=== PATIENT | female | born 1940 | race African-American/Black ===

== ENCOUNTER 2018-12-13 16:46 | Inpatient (IN) | payer BC, MEDICARE ==
[2018-12-13] VITALS (7 sets, daily range): BP systolic 152–207; BP diastolic 73–103
[~2018-12-13] VITALS: Ht 172.7 cm; Wt 70.3 kg
[2018-12-13] MEDS ORDERED: LORazepam Inj 2mg/ml 1ml IV ONE (17:15)
--- NOTE | 2018-12-13 18:28 | Emergency Room Report ---
History of Present Illness General Chief Complaint: Shoulder Injury Source: Medical Record, EMS Present Illness HPI Patient is a 77-year-old female presents after increased deformity to her left shoulder. Patient had x-ray at her retirement which showed anterior inferior dislocation of the left shoulder. There is no evident fracture noted. Patient had been noted to be ventilator dependent. 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 Injury occurred last night. Patient had not been vomiting or having any fever. Patient had no known time of injury. Patient had x-ray this morning which showed the dislocation. Patient was sent in for further evaluation and treatment. Allergies: Coded Allergies: NILAY INHIBITORS (Verified Allergy, Unknown, 12/13/18) AMLODIPINE (Verified Allergy, Unknown, 12/13/18) PENICILLINS (Verified Allergy, Unknown, 12/13/18) Uncoded Allergies: HYDROCHLORTHIAZIDE (Allergy, Unknown, 12/13/18) Patient History Past Medical History: see triage record Past Surgical History: other - gtube Reviewed Nursing Documentation: PMH: Agreed; PSxH: Agreed Nursing Documentation-PMH Hx Cardiac Problems: Yes - A-fib, hyperlipidemia, edema, anemia Hx Asthma: Yes - PNA, Hx COPD: Yes - Tracheostomy Hx Diabetes: Yes Hx Gastrointestinal Problems: Yes - GERD, G-tube, Hx Neurological Problems: Yes - SIADH, ICH Review of Systems All Other Systems: limited Physical Exam Vital Signs Date Time Temp Pulse Resp B/P (MAP) Pulse Ox O2 Delivery O2 Flow Rate FiO2 12/13/18 15:00 66 18 35 12/13/18 16:47 98.1 148/67 (94) 99 Mechanical Ventilator Sp02 EP Interpretation: reviewed, normal General Appearance: Chronically Ill Head: atraumatic Eyes: bilateral eye EOMI ENT: normal voice Neck: no bony tend, tracheotomy Respiratory: normal inspection, lungs clear, normal breath sounds, no respiratory distress, no retraction, no wheezing Cardiovascular #1: regular rate, rhythm, no edema Gastrointestinal: normal inspection, normal bowel sounds, non tender, soft Musculoskeletal: normal inspection, decreased range of motion, other - motor weakness Neurologic: responsive, motor weakness Psychiatric: mood/affect normal Skin: no rash, normal inspection Lymphatic: normal inspection Procedures Procedural Sedation Consent: Written Time out called at: 18:51 Pre-Sedation Assessment: Plan for Sedation Discuss Airway Assessment (Malampati): I Heart: normal Lungs: normal Abdomen: normal Extremities: abnormal - dislocation Procedures/Plans: Closed Reduction Plan for Moderate Sedation: Other ASA Score: III Procedure Narrative Patient was given Versed 2 mg as well as IV rocuronium. Patient attempted to reduce the left shoulder using multiple techniques without any success. Patient was maintained on ventilator at a rate of 16 during the time of attempt. Patient tolerated this well. Sedation well but post procedure x-ray showed continued dislocation. Start Time: 18:52 End Time: 19:02 Communication: back to baseline Mental Status: Cognitive Respiration: ventilator Skin Condition: WNL Abdomen: WNL Medical Decision Making Diagnostic Impression: Primary Impression: Shoulder dislocation Additional Impression: Ventilator dependence ER Course Presented for possible shoulder dislocation. Differential diagnosis include was not limited to fracture, dislocation, contusion, chronic dislocation among others. Because of complexity of patient's case laboratory tests and imaging studies were ordered. Patient was noted to have chronic neuromuscular weakness. Patient was noted to be hypertensive. She was given clonidine. Patient was given medications including Ativan and Versed with associated paralytic agent. Patient tolerated this well however I was unable to reproduce her shoulder. Patient was maintained on ventilator during the entire time. She was noted to have no change in blood pressure. Patient tolerated procedure well however post procedure x-ray can showed continued left shoulder dislocation. Dr. Duncan Louis was contacted for inpatient management. Labs Test 12/13/18 19:15 White Blood Count 4.2 K/UL (4.8-10.8) Red Blood Count 4.30 M/UL (4.20-5.40) Hemoglobin 11.6 G/DL (12.0-16.0) Hematocrit 37.3 % (37.0-47.0) Mean Corpuscular Volume 87 FL (80-99) Mean Corpuscular Hemoglobin 27.0 PG (27.0-31.0) Mean Corpuscular Hemoglobin Concent 31.1 G/DL (32.0-36.0) Red Cell Distribution Width 19.2 % (11.6-14.8) Platelet Count 214 K/UL (150-450) Mean Platelet Volume 7.3 FL (6.5-10.1) Neutrophils (%) (Auto) 64.0 % (45.0-75.0) Lymphocytes (%) (Auto) 18.6 % (20.0-45.0) Monocytes (%) (Auto) 12.7 % (1.0-10.0) Eosinophils (%) (Auto) 2.1 % (0.0-3.0) Basophils (%) (Auto) 2.7 % (0.0-2.0) Prothrombin Time 10.9 SEC (9.30-11.50) Prothromb Time International Ratio 1.0 (0.9-1.1) Activated Partial Thromboplast Time 23 SEC (23-33) Sodium Level 132 MMOL/L (136-145) Potassium Level 5.3 MMOL/L (3.5-5.1) Chloride Level 96 MMOL/L (98-107) Carbon Dioxide Level 32 MMOL/L (21-32) Anion Gap 4 mmol/L (5-15) Blood Urea Nitrogen 21 mg/dL (7-18) Creatinine 0.5 MG/DL (0.55-1.30) Estimat Glomerular Filtration Rate mL/min (>60) Glucose Level 99 MG/DL (74-106) Calcium Level 10.0 MG/DL (8.5-10.1) Total Bilirubin 0.4 MG/DL (0.2-1.0) Aspartate Amino Transf (AST/SGOT) 58 U/L (15-37) Alanine Aminotransferase (ALT/SGPT) 44 U/L (12-78) Alkaline Phosphatase 122 U/L (46-116) Total Protein 7.9 G/DL (6.4-8.2) Albumin 2.6 G/DL (3.4-5.0) Globulin 5.3 g/dL Albumin/Globulin Ratio 0.5 (1.0-2.7) EKG Diagnostic Results Rate: normal Rhythm: NSR ST Segments: no acute changes Last Vital Signs Date Time Temp Pulse Resp B/P (MAP) Pulse Ox O2 Delivery O2 Flow Rate FiO2 12/13/18 17:07 61 18 100 Mechanical Ventilator 35 12/13/18 16:57 98.1 152/75 Status: unchanged Disposition: ADMITTED INPATIENT Condition: Serious Referrals: NON PHYSICIAN (PCP) Orestes Henderson MD Dec 13, 2018 18:28
[2018-12-13] MEDS ORDERED: Midazolam 2mg/2ml Inj IVP ONE (18:30)
[2018-12-13] MEDS ORDERED: Rocuronium Bromide 50mg/5ml Inj IV ONE (18:30)
[2018-12-13 19:47] LABS: BASOPHILS % (AUTO) 2.7 % (0.0-2.0); EOSINOPHILS % (AUTO) 2.1 % (0.0-3.0); HEMATOCRIT 37.3 % (37.0-47.0); HEMOGLOBIN 11.6 G/DL (12.0-16.0); LYMPHOCYTES % (AUTO) 18.6 % (20.0-45.0); MEAN CORPUSCULAR VOLUME 87 FL (80-99); MONOCYTES % (AUTO) 12.7 % (1.0-10.0); PLATELET COUNT 214 K/UL (150-450); RED CELL DISTRIBUTION WIDTH 19.2 % (11.6-14.8); WHITE BLOOD COUNT 4.2 K/UL (4.8-10.8)
[2018-12-13 20:03] LABS: ANION GAP 4 mmol/L (5-15); BLOOD UREA NITROGEN 21 mg/dL (7-18); CARBON DIOXIDE 32 MMOL/L (21-32); CHLORIDE 96 MMOL/L (98-107); CREATININE 0.5 MG/DL (0.55-1.30); POTASSIUM 5.3 MMOL/L (3.5-5.1); SODIUM 132 MMOL/L (136-145)
[2018-12-13 20:08] LABS: ALANINE AMINOTRANSFERASE 44 U/L (12-78); ALBUMIN 2.6 G/DL (3.4-5.0); ALBUMIN/GLOBULIN RATIO 0.5 (1.0-2.7); ALKALINE PHOSPHATASE 122 U/L (46-116); ASPARTATE AMINO TRANSFERASE 58 U/L (15-37); BILIRUBIN,TOTAL 0.4 MG/DL (0.2-1.0)
[2018-12-13] MEDS ORDERED: cloNIDine 0.2mg Tab ORAL ONE (21:45)
[2018-12-13] MEDS ORDERED: ACETAMINOPHEN325 M1 GT (21:58)
[2018-12-13] MEDS ORDERED: BISACODYL5 MG ORAL (21:58)
[2018-12-13] MEDS ORDERED: ALBUTEROL2.5 MG/3 M INH (21:58)
[2018-12-13] MEDS ORDERED: ASPIRIN81 MG GT (21:58)
[2018-12-13] MEDS ORDERED: ATORVASTATIN CA20 MG GT (21:58)
[2018-12-13] MEDS ORDERED: VITAMIN D250000 UNI1 GT (22:01)
[2018-12-13] MEDS ORDERED: FERROUS SU220 MG/53 PO (22:01)
[2018-12-13] MEDS ORDERED: EPOGEN10000 UNIT SUBQ (22:01)
[2018-12-13] MEDS ORDERED: DECLOMYCIN150 MG GT (22:01)
[2018-12-13] MEDS ORDERED: DOCUSATE SODIU100 MG GT (22:01)
[2018-12-13] MEDS ORDERED: CATAPRES0.1 MG ORAL (22:01)
[2018-12-13] MEDS ORDERED: FERROUS SULFAT325 MG ORAL (22:01)
[2018-12-13] MEDS ORDERED: HEPARIN SUBQ (22:06)
[2018-12-13] MEDS ORDERED: HUMULIN R100 UNIT/1 SUBQ (22:06)
[2018-12-13] MEDS ORDERED: MAGNESIUM400 M1 PO (22:06)
[2018-12-13] MEDS ORDERED: NORMODYNE100 MG GT (22:06)
[2018-12-13] MEDS ORDERED: LEVOTHYROXINE100 MC1 IV (22:06)
[2018-12-13] MEDS ORDERED: MELATONIN1 MG GT (22:06)
[2018-12-13] MEDS ORDERED: HYDRALAZINE HCL50 MG GT (22:06)
[2018-12-13] MEDS ORDERED: DUONEB 0.5-3(2.53 ML HHN (22:06)
[2018-12-13] MEDS ORDERED: MIRALAX17 G2 GT (22:06)
[2018-12-13] MEDS ORDERED: MILK OF MA2400 MG/10 GT (22:06)
[2018-12-13] MEDS ORDERED: COZAAR50 MG GT (22:06)
[2018-12-13] MEDS ORDERED: ZOFRAN4 M3 GT (22:08)
[2018-12-13] MEDS ORDERED: VITAMIN C500 M1 GT (22:08)
[2018-12-14 01:30] VITALS: BP 148/65
[2018-12-14 04:00] VITALS: BP 144/69
[2018-12-14] MEDS ORDERED: Albuterol ud Inhalation HHN PRN (07:00)
[2018-12-14 08:00] VITALS: BP 150/61
[2018-12-14] MEDS: Losartan 50mg tab ORAL SCH ×2 (09:27→17:44)
[2018-12-14] MEDS: Ascorbic Acid 500mg tab ORAL SCH (09:27)
[2018-12-14] MEDS: Miralax 17gm pkt ORAL SCH (09:27)
[2018-12-14] MEDS: Docusate 100mg cap ORAL SCH ×2 (09:27→14:21)
[2018-12-14] MEDS: Aspirin Baby 81mg ORAL SCH (09:27)
[2018-12-14] MEDS: Bisacodyl EC 5mg tab ORAL SCH (09:27)
[2018-12-14] MEDS: Milk of Magnesia 30ml Ud ORAL SCH (09:28)
[2018-12-14] MEDS: Heparin 5000 units/ml inj SUBQ SCH ×2 (09:31→20:40)
--- NOTE | 2018-12-14 10:51 | Diagnostic Imaging Report ---
Indication: left shoulder pain Findings: 3 views of the left shoulder were obtained. Anterior glenohumeral joint dislocation demonstrated. No obvious fracture identified on the views obtained. The bones appear osteopenic. There is a tracheostomy noted. Aorta is calcified. IMPRESSION: Anterior glenohumeral joint dislocation
[2018-12-14] MEDS: NovoLOG Insulin Flexpen SUBQ SCH ×3 (11:30→20:38)
[2018-12-14 12:00] VITALS: BP 140/64
[2018-12-14] MEDS: HydrALAZINE 50mg tab ORAL SCH ×2 (14:22→21:39)
[2018-12-14] MEDS ORDERED: CATAPRES-TTS 11 EACH TDERMAL (15:02)
[2018-12-14] MEDS ORDERED: CHLORHEXIDINE118 ML TP (15:02)
[2018-12-14] MEDS ORDERED: BISACODYL10 M1 RC (15:02)
[2018-12-14] MEDS ORDERED: CATAPRES0.1 MG ORAL (15:04)
[2018-12-14] MEDS ORDERED: FERROUS SU220 MG/53 GT (15:12)
[2018-12-14] MEDS ORDERED: SYNTHROID100 MCG GT (15:23)
[2018-12-14] MEDS ORDERED: FLEET ENEMA133 ML RECTAL (15:23)
[2018-12-14] MEDS ORDERED: SODIUM CHLORIDE1 GM GT (15:40)
[2018-12-14] MEDS ORDERED: NEXIUM40 M2 GT (15:40)
[2018-12-14] MEDS ORDERED: MAGNESIUM OXID400 M1 GT (15:43)
[2018-12-14 15:57] VITALS: BP 131/57
[2018-12-14] MEDS: Docusate 100mg/10ml Liq NG SCH (17:45)
[2018-12-14] MEDS ORDERED: Rocuronium Bromide 50mg/5ml Inj IV ONE (17:46)
--- NOTE | 2018-12-14 18:00 | History and Physical Report ---
DATE OF ADMISSION: 12/13/2018 REASON FOR ADMISSION: Shoulder dislocation. HISTORY OF PRESENT ILLNESS: This is a 77-year-old female, presents with deformity of her left shoulder. X-rays obtained, confirmed a fair dislocation of left shoulder. The patient could not tolerate a closed reduction in the emergency room. The patient now admitted for orthopedic evaluation. The patient unable to give much in the way of history. PAST MEDICAL HISTORY: Notable for atrial fibrillation, hyperlipidemia, anemia, chronic respiratory failure, tracheostomy, G-tube, GERD, SIADH, intracranial hemorrhage. MEDICATIONS: Reviewed. ALLERGIES: Reviewed. SOCIAL HISTORY: The patient is a fci/subacute patient. PHYSICAL EXAMINATION: GENERAL: This is an ill-appearing female, chronically debilitated. VITAL SIGNS: Reviewed. Blood pressure 144/69, pulse rate 52, respiratory rate 16, sats 96%. HEENT: Negative. NECK: Supple. Tracheostomy midline. LUNGS: Moderate breath sounds. CARDIAC: S1, S2. Regular rate and rhythm. ABDOMEN: Soft, nontender. G-tube in place. EXTREMITIES: No cyanosis or clubbing. Shoulder deformity noted. LABORATORY DATA: Reviewed. Sodium 132, potassium 5.2, BUN 21, creatinine 0.5. IMPRESSION: 1. Respiratory failure. 2. Shoulder dislocation. 3. Tracheostomy. 4. G-tube. 5. Aspiration. 6. Electrolyte imbalance. 7. Hypercholesterolemia. 8. Hypertension. RECOMMENDATIONS: Supportive care. Resume fci medications. Follow up BMP and monitor for change. Followup H and H. Orthopedic evaluation assist with reduction and we will reassess and recommend discharge patient back to detention facility when stable and improved. Duncan Louis M.D. DR: SALLY JOB#: [id number] CC:
[2018-12-14 20:00] VITALS: BP 133/73
[2018-12-14] MEDS: Atorvastatin 20mg tab ORAL SCH (20:39)
--- NOTE | 2018-12-14 22:00 | Consultation ---
DATE OF CONSULTATION: 12/14/2018 CHIEF COMPLAINT: Left shoulder pain. HISTORY OF PRESENT ILLNESS: The patient is a 77-year-old female with complicated medical history. She recently had a stroke, subsequent was in rehabilitation center, then referred here because of the anterior shoulder dislocation. She underwent attempted closed reduction under sedation in the ER, which was unsuccessful, and therefore, Orthopedic consultation was obtained for further care and recommendations. PAST MEDICAL HISTORY: Per intake chart. PAST SURGICAL HISTORY: Per intake chart. MEDICATIONS: Per intake chart. PHYSICAL EXAMINATION: The patient is vent dependent. She has weakness in the left lower extremity due to stroke. Left shoulder examination shows bone loss on anterior aspect of the shoulder. No ecchymosis. No swelling. Imaging studies show anterior dislocation, no obvious fracture of the humerus or glenoid. ASSESSMENT: Left shoulder anterior dislocation. DISCUSSION: At this point, she seemed to have sustained anterior shoulder dislocation, maybe atraumatic given that there is no history of any trauma, it is probably due to some secondary atrophy and weakness due to recent stroke. At this point, underwent closed reduction, which was unsuccessful. I have had a lengthy discussion with her bread baker Brendan who is her grandson going over pros and cons. At this point, given that the stroke affects her left side, her medical comorbidities and limited functional use of her upper extremities, I will recommend just leaving it alone. However, I gave the option of putting under general anesthesia and trying a closed reduction. Risks, limitations, success, possibility of fracture as well as recurrent dislocation as well as risk of anesthesia, was discussed. He is going to talk it over with his family and then let me know what their decision is going forward. Chris Becerril M.D. DR: Arnaud JOB#: [id number] CC: KASSI
--- NOTE | 2018-12-14 22:30 | History and Physical Report ---
DATE OF ADMISSION: 12/13/2018 CHIEF COMPLAINT: Left shoulder dislocation. HISTORY OF PRESENT ILLNESS: The patient is an unfortunate 77-year-old female. She has a history of stroke, intracranial bleed, chronic respiratory failure, hypertension, and diabetes. She was transferred from a custodial facility with a dislocated left shoulder. The shoulder was unable to be reduced in the emergency room. She is therefore admitted for Orthopedic evaluation. She is poorly responsive at baseline. She is ventilator dependent. PAST MEDICAL HISTORY: As above. History of diabetes, SIADH, history of pneumonia, chronic kidney disease, encephalopathy, altered mentation, dysphagia, and history of G-tube. CURRENT MEDICATIONS: Reconciled and reviewed. ALLERGIES: None. FAMILY HISTORY: None. SOCIAL HISTORY: There is no known history of tobacco, ethanol, or drugs. REVIEW OF SYSTEMS: From the patient is unobtainable as she is nonverbal at baseline. PHYSICAL EXAMINATION: VITAL SIGNS: Temperature 98 degrees, pulse 68, respirations 17, and blood pressure 133/73. GENERAL: The patient is a chronically ill-appearing female, in no apparent distress. HEART: Regular rate and rhythm. LUNGS: Lungs are clear. ABDOMEN: Soft, nontender, and nondistended. EXTREMITIES: Without clubbing or cyanosis. The patient is somewhat contracted. There is no obvious deformity noted to the shoulder, although the patient's posture makes it difficult to assess. LABORATORY DATA: White count 4, hemoglobin 11, hematocrit 37, and platelets 214,000. Coags are normal. Sodium 132, potassium 5.3, chloride 96, bicarb 32, BUN 21, and creatinine 0.5. ASSESSMENT: This is an unfortunate elderly female with history of chronic respiratory failure, diabetes, hypertension, history of stroke, and encephalopathy admitted with left shoulder dislocation. PLAN: 1. Continue vent support. 2. Continue current medication regimen. 3. G-tube feedings. 4. Respiratory treatments. 5. Orthopedic consultation for reduction of the shoulder is currently pending. Miguel Caceres M.D. DR: WALESKA JOB#: [id number] CC:
[2018-12-15] VITALS (13 sets, daily range): BP systolic 134–174; BP diastolic 60–86
[2018-12-15] MEDS: HydrALAZINE 50mg tab ORAL SCH ×3 (05:04→21:03)
[2018-12-15 05:12] LABS: ANION GAP 4 mmol/L (5-15); BLOOD UREA NITROGEN 23 mg/dL (7-18); CALCIUM 9.4 MG/DL (8.5-10.1); CARBON DIOXIDE 32 MMOL/L (21-32); CHLORIDE 97 MMOL/L (98-107); CREATININE 0.7 MG/DL (0.55-1.30); POTASSIUM 4.3 MMOL/L (3.5-5.1); SODIUM 132 MMOL/L (136-145)
[2018-12-15] MEDS: NovoLOG Insulin Flexpen SUBQ SCH ×4 (05:35→23:32)
--- NOTE | 2018-12-15 07:59 | Cardiology Report ---
APPROVED REPORT EKG Measurement Heart [id number] Sinus rhythm with premature atrial complexes Low voltage QRS Cannot rule out Anterior infarct, age undetermined Abnormal ECG
--- NOTE | 2018-12-15 08:24 | Pulmonology Progress Note ---
Assessment/Plan Assessment/Plan IMPRESSION: 1. Respiratory failure. 2. Shoulder dislocation. 3. Tracheostomy. 4. G-tube. 5. Aspiration. 6. Electrolyte imbalance. 7. Hypercholesterolemia. 8. Hypertension. PLAN await family decision ortho appreciated supportive care for now impression, plan, and exam edited and reviewed in detail care discussed with RN Subjective ROS Limited/Unobtainable: Yes Allergies: Coded Allergies: NILAY INHIBITORS (Verified Allergy, Unknown, 12/13/18) AMLODIPINE (Verified Allergy, Unknown, 12/13/18) PENICILLINS (Verified Allergy, Unknown, 12/13/18) Uncoded Allergies: HYDROCHLORTHIAZIDE (Allergy, Unknown, 12/13/18) Subjective d/w ortho awaiting final family decision Objective Last 24 Hour Vital Signs Date Time Temp Pulse Resp B/P (MAP) Pulse Ox O2 Delivery O2 Flow Rate FiO2 12/15/18 07:27 60 16 30 12/15/18 05:38 111/55 12/15/18 05:04 147/63 12/15/18 04:54 70 16 30 12/15/18 04:00 58 12/15/18 04:00 98.0 59 18 135/65 (88) 99 59 12/15/18 04:00 Mechanical Ventilator 12/15/18 04:00 35 12/15/18 03:16 68 17 30 12/15/18 01:12 71 16 30 12/15/18 00:00 Mechanical Ventilator 12/15/18 00:00 72 12/15/18 00:00 35 12/15/18 00:00 98.2 81 18 137/67 (90) 99 81 12/14/18 23:20 137/63 12/14/18 22:49 74 17 30 12/14/18 21:39 141/63 12/14/18 20:39 65 17 30 12/14/18 20:00 35 12/14/18 20:00 98.3 68 17 133/73 (93) 98 68 12/14/18 20:00 Mechanical Ventilator 12/14/18 19:02 59 12/14/18 18:36 61 16 30 12/14/18 17:44 138/63 12/14/18 17:44 138/63 12/14/18 17:25 69 17 30 12/14/18 16:00 68 12/14/18 16:00 Mechanical Ventilator 12/14/18 16:00 35 12/14/18 15:57 98.1 56 17 131/57 (81) 98 60 12/14/18 15:30 63 16 30 12/14/18 14:22 131/63 12/14/18 13:50 60 16 30 12/14/18 12:00 54 12/14/18 12:00 35 12/14/18 12:00 Mechanical Ventilator 12/14/18 12:00 98.7 60 18 140/64 (89) 98 60 12/14/18 11:40 140/64 12/14/18 11:08 54 17 30 12/14/18 09:27 150/61 12/14/18 09:15 63 16 30 Intake and Output 12/14/18 12/15/18 19:00 07:00 Intake Total 415 ml 590 ml Output Total 100 ml 200 ml Balance 315 ml 390 ml Free Water 100 ml 50 ml Tube Feeding 315 ml 540 ml Output Urine Total 100 ml 200 ml # Voids 2 # Bowel Movements 1 Objective GENERAL: This is an ill-appearing female, chronically debilitated. HEENT: Negative. NECK: Supple. Tracheostomy midline. LUNGS: Moderate breath sounds. CARDIAC: S1, S2. Regular rate and rhythm. ABDOMEN: Soft, nontender. G-tube in place. EXTREMITIES: No cyanosis or clubbing. Shoulder deformity noted. Microbiology Date/Time Source Procedure Growth Status 12/13/18 21:45 Rectum Received Laboratory Tests 12/15/18 03:20: Sodium Level 132L, Potassium Level 4.3, Chloride Level 97L, Carbon Dioxide Level 32, Anion Gap 4L, Blood Urea Nitrogen 23H, Creatinine 0.7, Estimat Glomerular Filtration Rate , Glucose Level 84, Calcium Level 9.4 Current Medications Medications (Trade) Dose Ordered Sig/Jane Route PRN Reason Start Time Stop Time Status Last Admin Dose Admin Acetaminophen (Tylenol) 650 mg Q4H PRN ORAL For Pain 12/14/18 07:00 01/13/19 06:59 Albuterol Sulfate (Proventil) 2.5 mg Q4H PRN HHN Shortness of Breath 12/14/18 07:00 12/19/18 06:59 Ascorbic Acid (Vitamin C) 500 mg DAILY ORAL 12/14/18 09:00 01/13/19 08:59 12/14/18 09:27 Aspirin (ASA) 81 mg DAILY ORAL 12/14/18 09:00 01/13/19 08:59 12/14/18 09:27 Atorvastatin Calcium (Lipitor) 20 mg BEDTIME ORAL 12/14/18 21:00 01/13/19 20:59 12/14/18 20:39 Bisacodyl (Dulcolax) 10 mg DAILY ORAL 12/14/18 09:00 01/13/19 08:59 12/14/18 09:27 Clonidine HCl (Catapres Tab) 0.1 mg EVERY 6 HOURS ORAL 12/14/18 12:00 01/13/19 11:59 12/14/18 23:20 Dextrose (Dextrose 50%) 25 ml Q30M PRN IV Hypoglycemia 12/14/18 08:00 01/13/19 07:59 Dextrose (Dextrose 50%) 50 ml Q30M PRN IV Hypoglycemia 12/14/18 08:00 01/13/19 07:59 Docusate Sodium (Colace) 100 mg THREE TIMES A DAY NG 12/14/18 18:00 01/13/19 17:59 12/14/18 17:45 Ferrous Sulfate (Feosol) 325 mg DAILY ORAL 12/14/18 09:00 01/13/19 08:59 12/14/18 09:27 Heparin Sodium (Porcine) (Heparin 5000 units/ml) 5,000 units EVERY 12 HOURS SUBQ 12/14/18 09:00 01/13/19 08:59 12/14/18 20:40 Hydralazine HCl (Apresoline) 75 mg EVERY 8 HOURS ORAL 12/14/18 14:00 01/13/19 13:59 12/15/18 05:04 Insulin Aspart (NovoLOG) BEFORE MEALS AND HS SUBQ 12/14/18 11:30 01/13/19 11:29 Levothyroxine Sodium (Synthroid) 25 mcg DAILY IV 12/14/18 09:00 01/13/19 08:59 12/14/18 09:26 Losartan Potassium (Cozaar) 100 mg TWICE A DAY ORAL 12/14/18 09:00 01/13/19 08:59 12/14/18 17:44 Magnesium Hydroxide (Mom) 15 ml DAILY ORAL 12/14/18 09:00 01/13/19 08:59 12/14/18 09:28 Ondansetron HCl (Zofran) 4 mg Q6H PRN ORAL Nausea & Vomiting 12/14/18 07:00 01/13/19 06:59 Polyethylene Glycol (Miralax) 17 gm DAILY ORAL 12/14/18 09:00 01/13/19 08:59 12/14/18 09:27 Duncan Louis MD Dec 15, 2018 08:24
--- NOTE | 2018-12-15 08:55 | General Progress Note ---
Assessment/Plan Problem List: (1) Shoulder dislocation ICD Codes: S43.006A - Unspecified dislocation of unspecified shoulder joint, initial encounter SNOMED: 864834641, 136089646 (2) Ventilator dependence ICD Codes: Z99.11 - Dependence on respirator [ventilator] status SNOMED: 781716442 Status: stable Assessment/Plan: vent support resp rx gt feeds possible shoulder reduction in the OR Subjective ROS Limited/Unobtainable: No Constitutional: Reports: malaise, weakness HEENT: Reports: no symptoms Cardiovascular: Reports: no symptoms Respiratory: Reports: no symptoms Gastrointestinal/Abdominal: Reports: difficulty swallowing Genitourinary: Reports: no symptoms Neurologic/Psychiatric: Reports: pre-existing deficit Endocrine: Reports: no symptoms Hematologic/Lymphatic: Reports: no symptoms Allergies: Coded Allergies: NILAY INHIBITORS (Verified Allergy, Unknown, 12/13/18) AMLODIPINE (Verified Allergy, Unknown, 12/13/18) PENICILLINS (Verified Allergy, Unknown, 12/13/18) Uncoded Allergies: HYDROCHLORTHIAZIDE (Allergy, Unknown, 12/13/18) All Systems: reviewed and negative except above Subjective no events. stable on the vent. poorly responsive. Objective Last 24 Hour Vital Signs Date Time Temp Pulse Resp B/P (MAP) Pulse Ox O2 Delivery O2 Flow Rate FiO2 12/15/18 08:51 70 16 30 12/15/18 07:27 60 16 30 12/15/18 05:38 111/55 12/15/18 05:04 147/63 12/15/18 04:54 70 16 30 12/15/18 04:00 58 12/15/18 04:00 98.0 59 18 135/65 (88) 99 59 12/15/18 04:00 Mechanical Ventilator 12/15/18 04:00 35 12/15/18 03:16 68 17 30 12/15/18 01:12 71 16 30 12/15/18 00:00 Mechanical Ventilator 12/15/18 00:00 72 12/15/18 00:00 35 12/15/18 00:00 98.2 81 18 137/67 (90) 99 81 12/14/18 23:20 137/63 12/14/18 22:49 74 17 30 12/14/18 21:39 141/63 12/14/18 20:39 65 17 30 12/14/18 20:00 35 12/14/18 20:00 98.3 68 17 133/73 (93) 98 68 12/14/18 20:00 Mechanical Ventilator 12/14/18 19:02 59 12/14/18 18:36 61 16 30 12/14/18 17:44 138/63 12/14/18 17:44 138/63 12/14/18 17:25 69 17 30 12/14/18 16:00 68 12/14/18 16:00 Mechanical Ventilator 12/14/18 16:00 35 12/14/18 15:57 98.1 56 17 131/57 (81) 98 60 12/14/18 15:30 63 16 30 12/14/18 14:22 131/63 12/14/18 13:50 60 16 30 12/14/18 12:00 54 12/14/18 12:00 35 12/14/18 12:00 Mechanical Ventilator 12/14/18 12:00 98.7 60 18 140/64 (89) 98 60 12/14/18 11:40 140/64 12/14/18 11:08 54 17 30 12/14/18 09:27 150/61 12/14/18 09:15 63 16 30 Intake and Output 12/14/18 12/15/18 19:00 07:00 Intake Total 415 ml 590 ml Output Total 100 ml 200 ml Balance 315 ml 390 ml Free Water 100 ml 50 ml Tube Feeding 315 ml 540 ml Output Urine Total 100 ml 200 ml # Voids 2 # Bowel Movements 1 Laboratory Tests 12/15/18 03:20: Sodium Level 132L, Potassium Level 4.3, Chloride Level 97L, Carbon Dioxide Level 32, Anion Gap 4L, Blood Urea Nitrogen 23H, Creatinine 0.7, Estimat Glomerular Filtration Rate , Glucose Level 84, Calcium Level 9.4 Height (Feet): 5 Height (Inches): 8.00 Weight (Pounds): 189 General Appearance: WD/WN, lethargic, confused Neck: supple Cardiovascular: normal rate Respiratory/Chest: chest wall non-tender, lungs clear, normal breath sounds, no respiratory distress, no accessory muscle use Abdomen: normal bowel sounds, non tender, soft, no organomegaly Edema: no edema noted Arm (L), no edema noted Arm (R), no edema noted Leg (L), no edema noted Leg (R), no edema noted Pedal (L), no edema noted Pedal (R), no edema noted Generalized Neurologic: unresponsive, aphasia Miguel Caceres MD Dec 15, 2018 08:55
[2018-12-15] MEDS: Aspirin Baby 81mg ORAL SCH (09:00)
[2018-12-15] MEDS: Bisacodyl EC 5mg tab ORAL SCH (09:00)
[2018-12-15] MEDS: Heparin 5000 units/ml inj SUBQ SCH ×2 (09:00→20:15)
[2018-12-15] MEDS: Milk of Magnesia 30ml Ud ORAL SCH (09:22)
[2018-12-15] MEDS: Docusate 100mg/10ml Liq NG SCH ×3 (09:22→18:10)
[2018-12-15] MEDS: Miralax 17gm pkt ORAL SCH (09:22)
[2018-12-15] MEDS: Losartan 50mg tab ORAL SCH ×2 (09:23→18:09)
[2018-12-15] MEDS: Ascorbic Acid 500mg tab ORAL SCH (09:23)
[2018-12-15] MEDS ORDERED: NS 275ml ONE (09:50)
[2018-12-15] MEDS ORDERED: Rocuronium Bromide 50mg/5ml Inj IV ONE (15:48)
[2018-12-15] MEDS ORDERED: fentaNYL 100 mcg/2 mL ONE (16:06)
[2018-12-15] MEDS ORDERED: Propofol 200mg/20ml IV ONE (16:07)
--- NOTE | 2018-12-15 16:18 | Pre-Procedure Note/Attestation ---
Pre-Procedure Note/Attestation Complete Prior to Procedure Planned Procedure: left Procedure Narrative: closed treatment of left anterior shoulder dislocation Indications for Procedure Pre-Operative Diagnosis: left anterior shoulder dislocation Attestation I attest that I discussed the nature of the procedure; its benefits; risks and complications; and alternatives (and the risks and benefits of such alternatives ), prior to the procedure, with the patient (or the patient's legal traveling sales representative). I attest that, if there was a reasonable possibility of needing a blood transfusion, the patient (or the patient's legal traveling sales representative) was given the [facility] standardized written summary, pursuant to the Heladio Teachey Blood Safety Act ([place] Health and Safety Code # 1645, as amended). I attest that I re-evaluated the patient just prior to the surgery and that there has been no change in the patient's H&P, except as documented below: Chris Becerril MD Dec 15, 2018 16:18
--- NOTE | 2018-12-15 16:22 | Operative Note - PDOC ---
Operative Note Operative Note Pre-op Diagnosis: left anterior shoulder dislocation Procedure: see op report Post-op Diagnosis: same as pre-op plus Operative Findings: consistent w/pre-op dx studies Anesthesia: general Specimen: none Complications: none Condition: stable Estimated Blood Loss: none Implant(s) used?: No Chris Becerril MD Dec 15, 2018 16:22
--- NOTE | 2018-12-15 16:22 | Anethesia Preoperative Eval ---
Anesthesia Pre-op PMH/ROS General Date of Evaluation: Dec 15, 2018 Time of Evaluation: 16:18 Anesthesiologist: Derek ASA Score: ASA 4 Mallampati Score Class I : Soft palate, uvula, fauces, pillars visible Class II: Soft palate, uvula, fauces visible Class III: Soft palate, base of uvula visible Class IV: Only hard plate visible Mallampati Classification: Class III Surgeon: Jone Diagnosis: Dislocated L shoulder Surgical Procedure: Closed reduction of L dislocated shoulder Anesthesia History: none Family History: no anesthesia problems Allergies: Coded Allergies: NILAY INHIBITORS (Verified Allergy, Unknown, 12/13/18) AMLODIPINE (Verified Allergy, Unknown, 12/13/18) PENICILLINS (Verified Allergy, Unknown, 12/13/18) Uncoded Allergies: HYDROCHLORTHIAZIDE (Allergy, Unknown, 12/13/18) Medications: see eMAR Patient NPO?: Yes NPO Date: Dec 15, 2018 NPO Time: 0700 Past Medical History Cardiovascular: Reports: HTN; Denies: CAD, LA, valve dz, arrhythmia, other Pulmonary: Reports: COPD, other - respiratory failure vent dependernt; Denies: asthma, CAROLYN Gastrointestinal/Genitourinary: Reports: GERD; Denies: CRI, ESRD, other Neurologic/Psychiatric: Reports: dementia, CVA; Denies: depression/anxiety, TIA, other Endocrine: Reports: hypothyroidism; Denies: DM, steroids, other Hematology/Immune: Reports: anemia Musculoskeletal/Integumentary: Reports: DJD, other - contracted; Denies: OA, RA, DDD, edema PMH Narrative: as above PSxH Narrative: see H&P Anesthesia Pre-op Phys. Exam Physician Exam Last Vital Signs Date Time Temp Pulse Resp B/P (MAP) Pulse Ox O2 Delivery O2 Flow Rate FiO2 12/15/18 15:47 64 12/15/18 15:29 16 30 12/15/18 14:06 146/73 12/15/18 12:00 98.6 98 12/15/18 12:00 Mechanical Ventilator Constitutional: NAD Neurologic: other - unable to obtaine Cardiovascular: RRR, no M/R/G Respiratory: CTA Gastrointestinal: S/NT/ND Airway Exam Mallampati Score: Class III - tracheostomy in place MO: limited Neck: stiff ROM: limited Teeth: missing Dentures: no upper, no lower Anesthesia Pre-op A/P Labs Chemistry Test 12/15/18 03:20 Sodium Level 132 MMOL/L (136-145) L Potassium Level 4.3 MMOL/L (3.5-5.1) Chloride Level 97 MMOL/L (98-107) L Carbon Dioxide Level 32 MMOL/L (21-32) Anion Gap 4 mmol/L (5-15) L Blood Urea Nitrogen 23 mg/dL (7-18) H Creatinine 0.7 MG/DL (0.55-1.30) Estimat Glomerular Filtration Rate mL/min (>60) Glucose Level 84 MG/DL (74-106) Calcium Level 9.4 MG/DL (8.5-10.1) Risk Assessment & Plan Assessment: ASA4 Plan: GA with Trach Status Change Before Surgery: Ruben Ceballos MD Dec 15, 2018 16:22
--- NOTE | 2018-12-15 17:00 | Immediate Post-Op Evaluation ---
Immediate Post-Op Evalulation Immediate Post-Op Evalulation Procedure: Attempted reduction of L dislocated shoulder joint Date of Evaluation: Dec 15, 2018 Time of Evaluation: 17:00 IV Fluids: 200 Blood Products: none Estimated Blood Loss: none Urinary Output: n/a Blood Pressure Systolic: 134 Blood Pressure Diastolic: 65 Pulse Rate: 72 Respiratory Rate: 12 O2 Sat by Pulse Oximetry: 99 Temperature (Fahrenheit): 97.5 Pain Score (1-10): 1 Nausea: No Vomiting: No Patient Status: no response, ventilated, none Hydration Status: adequate Ruben Reed MD Dec 15, 2018 17:00
--- NOTE | 2018-12-15 19:15 | Operative Note - Dictated ---
DATE OF OPERATION: 12/15/2018 PREOPERATIVE DIAGNOSIS: Left shoulder anterior dislocation. POSTOPERATIVE DIAGNOSIS: Left shoulder anterior dislocation. PROCEDURE: 1. Manipulation under anesthesia, left shoulder. 2. Closed treatment, left anterior shoulder dislocation. SURGEON: Chris Becerril M.D. ANESTHESIA: General. INDICATION: The patient is a 77-year-old female, who was diagnosed with left anterior shoulder dislocation. It is unclear exactly when she sustained this; however, a lengthy discussion with the grandson, Brendan was had. It appears that she was able to move her arms and kind of communicate. They attempted reduction in the ER, which was unsuccessful. Therefore, discussing pros and cons, the grandson want to just try with deeper anesthesia. Risks, limitations, expectations, complications of the procedure were discussed in detail. All questions addressed. DESCRIPTION OF PROCEDURE: After informed consent obtained, the patient was brought to the operating room. The patient was placed in general anesthesia. Using a reduction maneuver, gentle reduction maneuver was performed on the left shoulder, however it did not reduce. There was concern that further traction and rotational forces may cause a fracture. I felt like the shoulder should have popped in pretty easily with full paralysis and consistent with more chronic dislocation. At this point, risk outweighed the benefit of continued attempts. She was not a candidate for a formal open reduction. Therefore at this point, the patient was awoken and taken to recovery room with stable signs. ESTIMATED BLOOD LOSS: None. COMPLICATIONS: None. SPECIMENS: None. IMPLANTS: None. Chris Becerril M.D. DR: JULIANNE JOB#: [id number] CC:
[2018-12-15] MEDS: Atorvastatin 20mg tab ORAL SCH (20:14)
[2018-12-16] VITALS: BP 136/73
[2018-12-16 04:00] VITALS: BP 154/79
[2018-12-16] MEDS: HydrALAZINE 50mg tab ORAL SCH ×3 (05:03→21:19)
[2018-12-16] MEDS: NovoLOG Insulin Flexpen SUBQ SCH ×3 (05:04→18:45)
[2018-12-16 05:40] LABS: ANION GAP 5 mmol/L (5-15); BLOOD UREA NITROGEN 21 mg/dL (7-18); CALCIUM 9.5 MG/DL (8.5-10.1); CARBON DIOXIDE 31 MMOL/L (21-32); CHLORIDE 98 MMOL/L (98-107); CREATININE 0.6 MG/DL (0.55-1.30); POTASSIUM 3.7 MMOL/L (3.5-5.1); SODIUM 134 MMOL/L (136-145)
[2018-12-16 08:00] VITALS: BP 143/70
[2018-12-16] MEDS: Bisacodyl EC 5mg tab ORAL SCH (09:00)
[2018-12-16] MEDS: Aspirin Baby 81mg ORAL SCH (09:16)
[2018-12-16] MEDS: Milk of Magnesia 30ml Ud ORAL SCH (09:17)
[2018-12-16] MEDS: Miralax 17gm pkt ORAL SCH (09:17)
[2018-12-16] MEDS: Docusate 100mg/10ml Liq NG SCH ×3 (09:17→18:08)
[2018-12-16] MEDS: Ascorbic Acid 500mg tab ORAL SCH (09:17)
[2018-12-16] MEDS: Losartan 50mg tab ORAL SCH ×2 (09:17→18:08)
[2018-12-16] MEDS: Heparin 5000 units/ml inj SUBQ SCH ×2 (09:18→21:21)
--- NOTE | 2018-12-16 09:27 | General Progress Note ---
Assessment/Plan Problem List: (1) Shoulder dislocation ICD Codes: S43.006A - Unspecified dislocation of unspecified shoulder joint, initial encounter SNOMED: 669300893, 427621313 (2) Ventilator dependence ICD Codes: Z99.11 - Dependence on respirator [ventilator] status SNOMED: 103504134 Status: stable Assessment/Plan: vent support resp rx gt feeds Subjective ROS Limited/Unobtainable: Yes Constitutional: Reports: malaise, weakness HEENT: Reports: no symptoms Cardiovascular: Reports: no symptoms Respiratory: Reports: shortness of breath Gastrointestinal/Abdominal: Reports: difficulty swallowing Genitourinary: Reports: no symptoms Neurologic/Psychiatric: Reports: pre-existing deficit Endocrine: Reports: no symptoms Hematologic/Lymphatic: Reports: anemia Allergies: Coded Allergies: NILAY INHIBITORS (Verified Allergy, Unknown, 12/13/18) AMLODIPINE (Verified Allergy, Unknown, 12/13/18) PENICILLINS (Verified Allergy, Unknown, 12/13/18) Uncoded Allergies: HYDROCHLORTHIAZIDE (Allergy, Unknown, 12/13/18) All Systems: reviewed and negative except above Subjective no events. stable on the vent. poorly responsive. s/p left shoulder reduction. Objective Last 24 Hour Vital Signs Date Time Temp Pulse Resp B/P (MAP) Pulse Ox O2 Delivery O2 Flow Rate FiO2 12/16/18 09:17 143/70 12/16/18 08:00 99.6 63 18 143/70 (94) 99 12/16/18 08:00 30 12/16/18 07:20 59 16 30 12/16/18 05:39 137/78 12/16/18 05:03 154/79 12/16/18 04:41 56 16 30 12/16/18 04:00 30 12/16/18 04:00 97.9 56 18 154/79 (104) 99 12/16/18 04:00 Mechanical Ventilator 12/16/18 03:55 51 16 30 12/16/18 03:32 53 12/16/18 01:26 51 16 30 12/16/18 00:00 Mechanical Ventilator 12/16/18 00:00 53 12/16/18 00:00 98.1 59 18 136/73 (94) 100 12/16/18 00:00 30 12/15/18 23:43 53 16 30 9/24/19 23:39 134/61 12/15/18 21:03 149/68 12/15/18 20:53 52 16 30 12/15/18 20:00 30 12/15/18 20:00 54 12/15/18 20:00 97.8 53 18 149/68 (95) 99 12/15/18 20:00 Mechanical Ventilator 12/15/18 19:03 69 16 30 12/15/18 18:10 146/68 12/15/18 18:09 146/68 12/15/18 18:00 97.9 65 16 146/68 (94) 99 12/15/18 17:35 97.2 67 12 173/84 100 Mechanical Ventilator 50 12/15/18 17:20 67 18 170/86 100 Mechanical Ventilator 50 12/15/18 17:10 67 12 174/80 100 Mechanical Ventilator 50 12/15/18 17:00 60 20 157/74 100 Mechanical Ventilator 50 12/15/18 17:00 72 12 99 12/15/18 16:55 69 19 137/62 100 Mechanical Ventilator 50 74 12/15/18 16:51 97.1 74 24 138/67 100 Mechanical Ventilator 50 12/15/18 16:00 Mechanical Ventilator 12/15/18 16:00 30 12/15/18 16:00 98.6 65 16 145/65 (91) 99 65 12/15/18 15:47 64 12/15/18 15:29 67 16 30 12/15/18 14:06 146/73 12/15/18 13:29 68 16 30 12/15/18 12:26 149/63 12/15/18 12:00 98.6 69 16 149/63 (91) 98 69 12/15/18 12:00 Mechanical Ventilator 12/15/18 12:00 30 12/15/18 11:30 59 12/15/18 10:40 66 16 30 Intake and Output 12/15/18 12/16/18 19:00 07:00 Intake Total 520 ml 410 ml Output Total 500 ml Balance 20 ml 410 ml Free Water 50 ml IV Total 250 ml Tube Feeding 30 ml 360 ml Other 240 ml Output Urine Total 500 ml # Bowel Movements 2 3 Laboratory Tests 12/16/18 03:25: Sodium Level 134L, Potassium Level 3.7, Chloride Level 98, Carbon Dioxide Level 31, Anion Gap 5, Blood Urea Nitrogen 21H, Creatinine 0.6, Estimat Glomerular Filtration Rate , Glucose Level 81, Calcium Level 9.5 Height (Feet): 5 Height (Inches): 8.00 Weight (Pounds): 155 Objective General Appearance: WD/WN, lethargic, confused Neck: supple Cardiovascular: normal rate Respiratory/Chest: chest wall non-tender, lungs clear, normal breath sounds, no respiratory distress, no accessory muscle use Abdomen: normal bowel sounds, non tender, soft, no organomegaly Edema: no edema noted Arm (L), no edema noted Arm (R), no edema noted Leg (L), no edema noted Leg (R), no edema noted Pedal (L), no edema noted Pedal (R), no edema noted Generalized Neurologic: unresponsive, aphasia Miguel Caceres MD Dec 16, 2018 09:27
[2018-12-16 12:00] VITALS: BP 147/75
[2018-12-16 16:00] VITALS: BP 145/71
--- NOTE | 2018-12-16 16:26 | Pulmonology Progress Note ---
Assessment/Plan Assessment/Plan Pulmonary Progress Note Assessment and Plan: 1. Respiratory failure. 2. Shoulder dislocation. 3. Tracheostomy. 4. G-tube. 5. Aspiration. 6. Electrolyte imbalance. 7. Hypercholesterolemia. 8. Hypertension. PLAN s/p shoulder reduction in OR analgesia impression, plan, and exam edited and reviewed in detail care discussed with RN Allergies: NILAY INHIBITORS (Verified Allergy, Unknown, 12/13/18) AMLODIPINE (Verified Allergy, Unknown, 12/13/18) PENICILLINS (Verified Allergy, Unknown, 12/13/18) HYDROCHLORTHIAZIDE (Allergy, Unknown, 12/13/18) Objective Vital Signs Noted Objective GENERAL: This is an ill-appearing female, chronically debilitated. HEENT: Negative. NECK: Supple. Tracheostomy midline. LUNGS: Moderate breath sounds. CARDIAC: S1, S2. Regular rate and rhythm. ABDOMEN: Soft, nontender. G-tube in place. EXTREMITIES: No cyanosis or clubbing. Shoulder deformity noted. Microbiology Date/Time Source Procedure Growth Status 12/13/18 21:45 Rectum Received Laboratory Tests Noted 12/15/18 03:20: Sodium Level 132L, Potassium Level 4.3, Chloride Level 97L, Carbon Dioxide Level 32, Anion Gap 4L, Blood Urea Nitrogen 23H, Creatinine 0.7, Estimat Glomerular Filtration Rate , Glucose Level 84, Calcium Level 9.4 Current Medications Medications (Trade) Dose Ordered Sig/Jane Route PRN Reason Start Time Stop Time Status Last Admin Dose Admin Acetaminophen (Tylenol) 650 mg Q4H PRN ORAL For Pain 12/14/18 07:00 01/13/19 06:59 Albuterol Sulfate (Proventil) 2.5 mg Q4H PRN HHN Shortness of Breath 12/14/18 07:00 12/19/18 06:59 Ascorbic Acid (Vitamin C) 500 mg DAILY ORAL 12/14/18 09:00 01/13/19 08:59 12/14/18 09:27 Aspirin (ASA) 81 mg DAILY ORAL 12/14/18 09:00 01/13/19 08:59 12/14/18 09:27 Atorvastatin Calcium (Lipitor) 20 mg BEDTIME ORAL 12/14/18 21:00 01/13/19 20:59 12/14/18 20:39 Bisacodyl (Dulcolax) 10 mg DAILY ORAL 12/14/18 09:00 01/13/19 08:59 12/14/18 09:27 Clonidine HCl (Catapres Tab) 0.1 mg EVERY 6 HOURS ORAL 12/14/18 12:00 01/13/19 11:59 12/14/18 23:20 Dextrose (Dextrose 50%) 25 ml Q30M PRN IV Hypoglycemia 12/14/18 08:00 01/13/19 07:59 Dextrose (Dextrose 50%) 50 ml Q30M PRN IV Hypoglycemia 12/14/18 08:00 01/13/19 07:59 Docusate Sodium (Colace) 100 mg THREE TIMES A DAY NG 12/14/18 18:00 01/13/19 17:59 12/14/18 17:45 Ferrous Sulfate (Feosol) 325 mg DAILY ORAL 12/14/18 09:00 01/13/19 08:59 12/14/18 09:27 Heparin Sodium (Porcine) (Heparin 5000 units/ml) 5,000 units EVERY 12 HOURS SUBQ 12/14/18 09:00 01/13/19 08:59 12/14/18 20:40 Hydralazine HCl (Apresoline) 75 mg EVERY 8 HOURS ORAL 12/14/18 14:00 01/13/19 13:59 12/15/18 05:04 Insulin Aspart (NovoLOG) BEFORE MEALS AND HS SUBQ 12/14/18 11:30 01/13/19 11:29 Levothyroxine Sodium (Synthroid) 25 mcg DAILY IV 12/14/18 09:00 01/13/19 08:59 12/14/18 09:26 Losartan Potassium (Cozaar) 100 mg TWICE A DAY ORAL 12/14/18 09:00 01/13/19 08:59 12/14/18 17:44 Magnesium Hydroxide (Mom) 15 ml DAILY ORAL 12/14/18 09:00 01/13/19 08:59 12/14/18 09:28 Ondansetron HCl (Zofran) 4 mg Q6H PRN ORAL Nausea & Vomiting 12/14/18 07:00 01/13/19 06:59 Polyethylene Glycol (Miralax) 17 gm DAILY ORAL 12/14/18 09:00 01/13/19 08:59 12/14/18 09:27 Subjective ROS Limited/Unobtainable: No Allergies: Coded Allergies: NILAY INHIBITORS (Verified Allergy, Unknown, 12/13/18) AMLODIPINE (Verified Allergy, Unknown, 12/13/18) PENICILLINS (Verified Allergy, Unknown, 12/13/18) Uncoded Allergies: HYDROCHLORTHIAZIDE (Allergy, Unknown, 12/13/18) Objective Last 24 Hour Vital Signs Date Time Temp Pulse Resp B/P (MAP) Pulse Ox O2 Delivery O2 Flow Rate FiO2 12/16/18 16:00 68 12/16/18 16:00 Mechanical Ventilator 12/16/18 16:00 30 12/16/18 14:51 56 16 30 12/16/18 14:33 167/77 12/16/18 13:05 55 16 30 12/16/18 12:30 147/75 12/16/18 12:00 Mechanical Ventilator 12/16/18 12:00 68 12/16/18 12:00 99.3 60 16 147/75 (99) 99 12/16/18 12:00 30 12/16/18 11:07 53 16 30 12/16/18 09:17 143/70 12/16/18 09:05 51 16 30 12/16/18 08:00 Mechanical Ventilator 12/16/18 08:00 62 12/16/18 08:00 99.6 63 18 143/70 (94) 99 12/16/18 08:00 30 12/16/18 07:20 59 16 30 12/16/18 05:39 137/78 12/16/18 05:03 154/79 12/16/18 04:41 56 16 30 12/16/18 04:00 30 12/16/18 04:00 97.9 56 18 154/79 (104) 99 12/16/18 04:00 Mechanical Ventilator 12/16/18 03:55 51 16 30 12/16/18 03:32 53 12/16/18 01:26 51 16 30 12/16/18 00:00 Mechanical Ventilator 12/16/18 00:00 53 12/16/18 00:00 98.1 59 18 136/73 (94) 100 12/16/18 00:00 30 12/15/18 23:43 53 16 30 12/15/18 23:39 134/61 12/15/18 21:03 149/68 12/15/18 20:53 52 16 30 12/15/18 20:00 30 12/15/18 20:00 54 12/15/18 20:00 97.8 53 18 149/68 (95) 99 12/15/18 20:00 Mechanical Ventilator 12/15/18 19:03 69 16 30 12/15/18 18:10 146/68 12/15/18 18:09 146/68 12/15/18 18:00 97.9 65 16 146/68 (94) 99 12/15/18 17:35 97.2 67 12 173/84 100 Mechanical Ventilator 50 12/15/18 17:20 67 18 170/86 100 Mechanical Ventilator 50 12/15/18 17:10 67 12 174/80 100 Mechanical Ventilator 50 12/15/18 17:00 60 20 157/74 100 Mechanical Ventilator 50 12/15/18 17:00 72 12 99 12/15/18 16:55 69 19 137/62 100 Mechanical Ventilator 50 74 12/15/18 16:51 97.1 74 24 138/67 100 Mechanical Ventilator 50 Intake and Output 12/15/18 12/16/18 19:00 07:00 Intake Total 520 ml 410 ml Output Total 500 ml Balance 20 ml 410 ml Free Water 50 ml IV Total 250 ml Tube Feeding 30 ml 360 ml Other 240 ml Output Urine Total 500 ml # Bowel Movements 2 3 Microbiology Date/Time Source Procedure Growth Status 12/13/18 21:45 Nasal Nares MRSA Culture - Final NO METHICILLIN RESISTANT STAPH AUREUS... Complete 12/13/18 21:45 Rectum VRE Culture - Final Enterococcus Faecalis - Vre Complete Laboratory Tests 12/16/18 03:25: Sodium Level 134L, Potassium Level 3.7, Chloride Level 98, Carbon Dioxide Level 31, Anion Gap 5, Blood Urea Nitrogen 21H, Creatinine 0.6, Estimat Glomerular Filtration Rate , Glucose Level 81, Calcium Level 9.5 Current Medications Medications (Trade) Dose Ordered Sig/Jane Route PRN Reason Start Time Stop Time Status Last Admin Dose Admin Acetaminophen (Tylenol) 650 mg Q4H PRN ORAL For Pain 12/14/18 07:00 01/13/19 06:59 Albuterol Sulfate (Proventil) 2.5 mg Q4H PRN HHN Shortness of Breath 12/14/18 07:00 12/19/18 06:59 Ascorbic Acid (Vitamin C) 500 mg DAILY ORAL 12/14/18 09:00 01/13/19 08:59 12/16/18 09:17 Aspirin (ASA) 81 mg DAILY ORAL 12/14/18 09:00 01/13/19 08:59 12/16/18 09:16 Atorvastatin Calcium (Lipitor) 20 mg BEDTIME ORAL 12/14/18 21:00 01/13/19 20:59 12/15/18 20:14 Bisacodyl (Dulcolax) 10 mg DAILY ORAL 12/14/18 09:00 01/13/19 08:59 12/14/18 09:27 Clonidine HCl (Catapres Tab) 0.1 mg EVERY 6 HOURS ORAL 12/14/18 12:00 01/13/19 11:59 12/16/18 12:30 Dextrose (Dextrose 50%) 25 ml Q30M PRN IV Hypoglycemia 12/14/18 08:00 01/13/19 07:59 Dextrose (Dextrose 50%) 50 ml Q30M PRN IV Hypoglycemia 12/14/18 08:00 01/13/19 07:59 Docusate Sodium (Colace) 100 mg THREE TIMES A DAY NG 12/14/18 18:00 01/13/19 17:59 12/16/18 12:30 Ferrous Sulfate (Feosol) 325 mg DAILY ORAL 12/14/18 09:00 01/13/19 08:59 12/16/18 09:17 Heparin Sodium (Porcine) (Heparin 5000 units/ml) 5,000 units EVERY 12 HOURS SUBQ 12/14/18 09:00 01/13/19 08:59 12/16/18 09:18 Hydralazine HCl (Apresoline) 75 mg EVERY 8 HOURS ORAL 12/14/18 14:00 01/13/19 13:59 12/16/18 14:33 Insulin Aspart (NovoLOG) EVERY 6 HOURS SUBQ 12/15/18 12:00 01/13/19 11:29 Levothyroxine Sodium (Synthroid) 25 mcg DAILY IV 12/14/18 09:00 01/13/19 08:59 12/16/18 09:23 Losartan Potassium (Cozaar) 100 mg TWICE A DAY ORAL 12/14/18 09:00 01/13/19 08:59 12/16/18 09:17 Magnesium Hydroxide (Mom) 15 ml DAILY ORAL 12/14/18 09:00 01/13/19 08:59 12/16/18 09:17 Ondansetron HCl (Zofran) 4 mg Q6H PRN ORAL Nausea & Vomiting 12/14/18 07:00 01/13/19 06:59 Polyethylene Glycol (Miralax) 17 gm DAILY ORAL 12/14/18 09:00 01/13/19 08:59 12/16/18 09:17 Srinivasan Owens MD Dec 16, 2018 16:26
--- NOTE | 2018-12-16 16:44 | 48 Hour Post Anesthesia Eval ---
Post Anesthesia Evaluation Procedure: Attempted reduction of L dislocated shoulder joint Date of Evaluation: Dec 16, 2018 Time of Evaluation: 16:42 Blood Pressure Systolic: 167 0: 77 Pulse Rate: 68 Respiratory Rate: 20 - Mech Vent Temperature (Fahrenheit): 99.3 O2 Sat by Pulse Oximetry: 99 Airway: patent Nausea: No Vomiting: No Pain Intensity: 1 Hydration Status: adequate Cardiopulmonary Status: Stable Mental Status/LOC: patient returned to baseline Follow-up Care/Observations: 0 Post-Anesthesia Complications: 0 Follow-up care needed: N/A Mack He MD Dec 16, 2018 16:44
[2018-12-16 20:00] VITALS: BP 161/76
[2018-12-16] MEDS: Atorvastatin 20mg tab ORAL SCH (21:19)
[2018-12-17] VITALS: BP 164/91
[2018-12-17 04:00] VITALS: BP 150/70
[2018-12-17 05:30] LABS: ANION GAP 6 mmol/L (5-15); BLOOD UREA NITROGEN 24 mg/dL (7-18); CALCIUM 9.7 MG/DL (8.5-10.1); CARBON DIOXIDE 30 MMOL/L (21-32); CHLORIDE 99 MMOL/L (98-107); CREATININE 0.7 MG/DL (0.55-1.30); POTASSIUM 3.8 MMOL/L (3.5-5.1); SODIUM 135 MMOL/L (136-145)
[2018-12-17] MEDS: NovoLOG Insulin Flexpen SUBQ SCH ×4 (06:00→17:52)
[2018-12-17] MEDS: HydrALAZINE 50mg tab ORAL SCH ×2 (06:00→13:40)
--- NOTE | 2018-12-17 07:58 | General Progress Note ---
Assessment/Plan Problem List: (1) Shoulder dislocation ICD Codes: S43.006A - Unspecified dislocation of unspecified shoulder joint, initial encounter SNOMED: 928487406, 125899185 (2) Ventilator dependence ICD Codes: Z99.11 - Dependence on respirator [ventilator] status SNOMED: 104656744 Status: stable Assessment/Plan: vent support resp rx gt feeds Subjective ROS Limited/Unobtainable: Yes Constitutional: Reports: malaise, weakness HEENT: Reports: no symptoms Cardiovascular: Reports: no symptoms Respiratory: Reports: no symptoms, shortness of breath Gastrointestinal/Abdominal: Reports: difficulty swallowing Genitourinary: Reports: no symptoms Neurologic/Psychiatric: Reports: pre-existing deficit Endocrine: Reports: no symptoms Hematologic/Lymphatic: Reports: no symptoms Allergies: Coded Allergies: NILAY INHIBITORS (Verified Allergy, Unknown, 12/13/18) AMLODIPINE (Verified Allergy, Unknown, 12/13/18) PENICILLINS (Verified Allergy, Unknown, 12/13/18) Uncoded Allergies: HYDROCHLORTHIAZIDE (Allergy, Unknown, 12/13/18) All Systems: reviewed and negative except above Subjective no events. stable on the vent. poorly responsive. s/p left shoulder reduction. Objective Last 24 Hour Vital Signs Date Time Temp Pulse Resp B/P (MAP) Pulse Ox O2 Delivery O2 Flow Rate FiO2 12/17/18 07:13 48 16 30 12/17/18 06:00 151/72 12/17/18 05:57 152/71 12/17/18 04:00 Mechanical Ventilator 12/17/18 04:00 58 16 30 12/17/18 04:00 97.6 51 16 150/70 (96) 99 12/17/18 04:00 55 12/17/18 04:00 30 12/17/18 03:05 55 16 30 12/17/18 01:05 59 16 30 12/17/18 00:14 164/91 12/17/18 00:00 Mechanical Ventilator 12/17/18 00:00 55 12/17/18 00:00 30 12/17/18 00:00 98.1 62 16 164/91 (115) 98 12/16/18 23:00 61 16 30 12/16/18 21:19 161/76 12/16/18 20:50 58 16 30 12/16/18 20:00 Mechanical Ventilator 12/16/18 20:00 55 12/16/18 20:00 30 12/16/18 20:00 98.7 61 16 161/76 (104) 98 12/16/18 19:30 61 17 30 12/16/18 18:08 145/71 12/16/18 18:08 167/77 12/16/18 16:48 54 16 30 12/16/18 16:44 68 20 99 12/16/18 16:00 68 12/16/18 16:00 Mechanical Ventilator 12/16/18 16:00 99.5 61 17 145/71 (95) 100 12/16/18 16:00 30 12/16/18 14:51 56 16 30 12/16/18 14:33 167/77 12/16/18 13:05 55 16 30 12/16/18 12:30 147/75 12/16/18 12:00 Mechanical Ventilator 12/16/18 12:00 68 12/16/18 12:00 99.3 60 16 147/75 (99) 99 12/16/18 12:00 30 12/16/18 11:07 53 16 30 12/16/18 09:17 143/70 12/16/18 09:05 51 16 30 12/16/18 08:00 Mechanical Ventilator 12/16/18 08:00 62 12/16/18 08:00 99.6 63 18 143/70 (94) 99 12/16/18 08:00 30 Intake and Output 12/16/18 12/17/18 18:59 06:59 Intake Total 690 ml 680 ml Output Total 200 ml 300 ml Balance 490 ml 380 ml Free Water 150 ml 140 ml Tube Feeding 540 ml 540 ml Output Urine Total 200 ml 300 ml # Voids 2 1 # Bowel Movements 3 1 Laboratory Tests 12/17/18 03:26: Sodium Level 135L, Potassium Level 3.8, Chloride Level 99, Carbon Dioxide Level 30, Anion Gap 6, Blood Urea Nitrogen 24H, Creatinine 0.7, Estimat Glomerular Filtration Rate , Glucose Level 99, Calcium Level 9.7 Height (Feet): 5 Height (Inches): 8.00 Weight (Pounds): 155 Objective General Appearance: WD/WN, lethargic, confused Neck: supple Cardiovascular: normal rate Respiratory/Chest: chest wall non-tender, lungs clear, normal breath sounds, no respiratory distress, no accessory muscle use Abdomen: normal bowel sounds, non tender, soft, no organomegaly Edema: no edema noted Arm (L), no edema noted Arm (R), no edema noted Leg (L), no edema noted Leg (R), no edema noted Pedal (L), no edema noted Pedal (R), no edema noted Generalized Neurologic: unresponsive, aphasia Miguel Caceres MD Dec 17, 2018 07:58
[2018-12-17 08:00] VITALS: BP 165/73
--- NOTE | 2018-12-17 08:27 | Pulmonology Progress Note ---
Assessment/Plan Assessment/Plan IMPRESSION: 1. Respiratory failure. 2. Shoulder dislocation. 3. Tracheostomy. 4. G-tube. 5. Aspiration. 6. Electrolyte imbalance. 7. Hypercholesterolemia. 8. Hypertension. PLAN conservative management ortho appreciated supportive care for now dc to snf impression, plan, and exam edited and reviewed in detail care discussed with RN Subjective ROS Limited/Unobtainable: Yes Allergies: Coded Allergies: NILAY INHIBITORS (Verified Allergy, Unknown, 12/13/18) AMLODIPINE (Verified Allergy, Unknown, 12/13/18) PENICILLINS (Verified Allergy, Unknown, 12/13/18) Uncoded Allergies: HYDROCHLORTHIAZIDE (Allergy, Unknown, 12/13/18) Subjective d/w ortho unsuccessful reduction Objective Last 24 Hour Vital Signs Date Time Temp Pulse Resp B/P (MAP) Pulse Ox O2 Delivery O2 Flow Rate FiO2 12/17/18 08:00 30 12/17/18 08:00 97.7 50 16 165/73 (103) 100 12/17/18 07:13 48 16 30 12/17/18 06:00 151/72 12/17/18 05:57 152/71 12/17/18 04:00 Mechanical Ventilator 12/17/18 04:00 58 16 30 12/17/18 04:00 97.6 51 16 150/70 (96) 99 12/17/18 04:00 55 12/17/18 04:00 30 12/17/18 03:05 55 16 30 12/17/18 01:05 59 16 30 12/17/18 00:14 164/91 12/17/18 00:00 Mechanical Ventilator 12/17/18 00:00 55 12/17/18 00:00 30 12/17/18 00:00 98.1 62 16 164/91 (115) 98 12/16/18 23:00 61 16 30 12/16/18 21:19 161/76 12/16/18 20:50 58 16 30 12/16/18 20:00 Mechanical Ventilator 12/16/18 20:00 55 12/16/18 20:00 30 12/16/18 20:00 98.7 61 16 161/76 (104) 98 12/16/18 19:30 61 17 30 12/16/18 18:08 145/71 12/16/18 18:08 167/77 12/16/18 16:48 54 16 30 12/16/18 16:44 68 20 99 12/16/18 16:00 68 12/16/18 16:00 Mechanical Ventilator 12/16/18 16:00 99.5 61 17 145/71 (95) 100 12/16/18 16:00 30 12/16/18 14:51 56 16 30 12/16/18 14:33 167/77 12/16/18 13:05 55 16 30 12/16/18 12:30 147/75 12/16/18 12:00 Mechanical Ventilator 12/16/18 12:00 68 12/16/18 12:00 99.3 60 16 147/75 (99) 99 12/16/18 12:00 30 12/16/18 11:07 53 16 30 12/16/18 09:17 143/70 12/16/18 09:05 51 16 30 Intake and Output 12/16/18 12/17/18 18:59 06:59 Intake Total 690 ml 680 ml Output Total 200 ml 300 ml Balance 490 ml 380 ml Free Water 150 ml 140 ml Tube Feeding 540 ml 540 ml Output Urine Total 200 ml 300 ml # Voids 2 1 # Bowel Movements 3 1 Objective GENERAL: This is an ill-appearing female, chronically debilitated. HEENT: Negative. NECK: Supple. Tracheostomy midline. LUNGS: Moderate breath sounds. CARDIAC: S1, S2. Regular rate and rhythm. ABDOMEN: Soft, nontender. G-tube in place. EXTREMITIES: No cyanosis or clubbing. Shoulder deformity noted. Laboratory Tests 12/17/18 03:26: Sodium Level 135L, Potassium Level 3.8, Chloride Level 99, Carbon Dioxide Level 30, Anion Gap 6, Blood Urea Nitrogen 24H, Creatinine 0.7, Estimat Glomerular Filtration Rate , Glucose Level 99, Calcium Level 9.7 Current Medications Medications (Trade) Dose Ordered Sig/Jane Route PRN Reason Start Time Stop Time Status Last Admin Dose Admin Acetaminophen (Tylenol) 650 mg Q4H PRN ORAL For Pain 12/14/18 07:00 01/13/19 06:59 Albuterol Sulfate (Proventil) 2.5 mg Q4H PRN HHN Shortness of Breath 12/14/18 07:00 12/19/18 06:59 Ascorbic Acid (Vitamin C) 500 mg DAILY ORAL 12/14/18 09:00 01/13/19 08:59 12/16/18 09:17 Aspirin (ASA) 81 mg DAILY ORAL 12/14/18 09:00 01/13/19 08:59 12/16/18 09:16 Atorvastatin Calcium (Lipitor) 20 mg BEDTIME ORAL 12/14/18 21:00 01/13/19 20:59 12/16/18 21:19 Bisacodyl (Dulcolax) 10 mg DAILY ORAL 12/14/18 09:00 01/13/19 08:59 12/14/18 09:27 Clonidine HCl (Catapres Tab) 0.1 mg EVERY 6 HOURS ORAL 12/14/18 12:00 01/13/19 11:59 12/17/18 05:57 Dextrose (Dextrose 50%) 25 ml Q30M PRN IV Hypoglycemia 12/14/18 08:00 01/13/19 07:59 Dextrose (Dextrose 50%) 50 ml Q30M PRN IV Hypoglycemia 12/14/18 08:00 01/13/19 07:59 Docusate Sodium (Colace) 100 mg THREE TIMES A DAY NG 12/14/18 18:00 01/13/19 17:59 12/16/18 18:08 Ferrous Sulfate (Feosol) 325 mg DAILY ORAL 12/14/18 09:00 01/13/19 08:59 12/16/18 09:17 Heparin Sodium (Porcine) (Heparin 5000 units/ml) 5,000 units EVERY 12 HOURS SUBQ 12/14/18 09:00 01/13/19 08:59 12/16/18 21:21 Hydralazine HCl (Apresoline) 75 mg EVERY 8 HOURS ORAL 12/14/18 14:00 01/13/19 13:59 12/16/18 21:19 Insulin Aspart (NovoLOG) EVERY 6 HOURS SUBQ 12/15/18 12:00 01/13/19 11:29 12/17/18 06:00 Levothyroxine Sodium (Synthroid) 25 mcg DAILY IV 12/14/18 09:00 01/13/19 08:59 12/16/18 09:23 Losartan Potassium (Cozaar) 100 mg TWICE A DAY ORAL 12/14/18 09:00 01/13/19 08:59 12/16/18 18:08 Magnesium Hydroxide (Mom) 15 ml DAILY ORAL 12/14/18 09:00 01/13/19 08:59 12/16/18 09:17 Ondansetron HCl (Zofran) 4 mg Q6H PRN ORAL Nausea & Vomiting 12/14/18 07:00 01/13/19 06:59 Polyethylene Glycol (Miralax) 17 gm DAILY ORAL 12/14/18 09:00 01/13/19 08:59 12/16/18 09:17 Duncan Louis MD Dec 17, 2018 08:27
[2018-12-17] MEDS: Bisacodyl EC 5mg tab ORAL SCH (08:42)
[2018-12-17] MEDS: Losartan 50mg tab ORAL SCH ×2 (08:43→17:05)
[2018-12-17] MEDS: Docusate 100mg/10ml Liq NG SCH ×3 (08:43→17:04)
[2018-12-17] MEDS: Aspirin Baby 81mg ORAL SCH (08:43)
[2018-12-17] MEDS: Ascorbic Acid 500mg tab ORAL SCH (08:43)
[2018-12-17] MEDS: Milk of Magnesia 30ml Ud ORAL SCH (08:43)
[2018-12-17] MEDS: Miralax 17gm pkt ORAL SCH (08:44)
[2018-12-17] MEDS: Heparin 5000 units/ml inj SUBQ SCH (08:45)
[2018-12-17] MEDS ORDERED: NS 275ml ONE (10:31)
[2018-12-17 12:00] VITALS: BP 150/70
[2018-12-17 16:00] VITALS: BP 170/75
[2018-12-17 18:42] VITALS: BP 168/76
--- NOTE | 2018-12-18 08:14 | Discharge Summary ---
Discharge Summary Discharge Summary _ DATE OF ADMISSION: 12/13/2018 DATE OF DISCHARGE: 12/17/2018 DISCHARGED BY: Dr. Louis REASON FOR ADMISSION: 77 years old female with past medical history of stroke, intracranial bleeding, chronic respiratory failure, ventilator dependent, with tracheostomy status, hypertension, diabetes mellitus, dysphagia, G-tube, encephalopathy, chronic kidney disease, was transferred from the group home facility with dislocated left shoulder. Dislocated shoulder was unable to be reduced in the emergency department, and patient subsequently was admitted for orthopedic evaluation. CONSULTANTS: Internal medicine Dr. Caceres Orthopedic surgery Dr. Becerril [facility] COURSE: Patient admitted to direct observational unit. Ventilator support and tracheostomy care provided. Pulmonary toilet provided. No signs of respiratory distress on current settings. Left shoulder x-ray revealed anterior glenohumeral joint dislocation. As mentioned above, dislocation could not be reduced in emergency department. Orthopedic surgery consult was requested. Patient subsequently undergone on 12/15 manipulation under anesthesia left shoulder , close treatment of left anterior shoulder dislocation. During procedure gentle reduction maneuver was performed on the left shoulder, however it did not reduce dislocation. There was concern that further traction and rotational forces may cause a fracture. Surgeon felt that the picture was more consistent with chronic dislocation. At this point, risk outweighed the benefit of continued attempts. Patient was not a candidate for a formal open reduction. Continue with conservative management. Pain management was addressed as needed. Strict aspiration precautions maintained. G-tube feeding continued. Renal parameters and electrolytes were closely monitored. Electrolytes corrected as needed/hyperkalemia and hyponatremia. SNF medication continued. Blood sugar was managed with sliding scale of insulin. Blood pressure was managed with current regimen of antihypertensive. Antiplatelet therapy with aspirin and statin continued. DVT prophylaxis provided. Supportive care provided. Bowel regimen instituted. Patient clinically stabilized and was ready for transfer back to group home facility for continuation of care. FINAL DIAGNOSES: Left shoulder anterior dislocation Status post manipulation under anesthesia left shoulder and closed treatment, left anterior shoulder shoulder dislocation Chronic respiratory failure, ventilator dependent with tracheostomy status Dysphagia, G-tube Aspiration Electrolyte imbalance Hypertension Hypercholesterolemia DISCHARGE MEDICATIONS: List of medication was sent to accepting facility. DISCHARGE INSTRUCTIONS: Patient was discharged to the subacute group home facility. Follow up with medical doctor at the facility. I have been assigned to dictate discharge summary for this account. I was not involved in the patient's management. Gail Rogers NP Dec 18, 2018 08:14
== END 2018-12-17 19:33 | DRG 563 ==
LOC: EDBD 16:46 → EMR 17:05 → 2W 20:00 → EDBEDREQ 20:12
PROC: 5A1945Z Respiratory Ventilation, 24-96 Consecutive Hours (ICD-10-PCS; 2018-12-13)
PROC: 0RSKXZZ Reposition Left Shoulder Joint, External Approach (ICD-10-PCS; principal; 2018-12-15 16:00)
DX: S43.085A Other dislocation of left shoulder joint, initial encounter (principal); J96.10 Chronic respiratory failure, unspecified whether with hypoxia or hypercapnia; Z43.1 Encounter for attention to gastrostomy; Z99.11 Dependence on respirator [ventilator] status; E87.1 Hypo-osmolality and hyponatremia; I69.354 Hemiplegia and hemiparesis following cerebral infarction affecting left non-dominant side; X58.XXXA Exposure to other specified factors, initial encounter; Y92.129 Unspecified place in nursing home as the place of occurrence of the external cause; I48.91 Unspecified atrial fibrillation; E78.5 Hyperlipidemia, unspecified; Z43.0 Encounter for attention to tracheostomy; R13.10 Dysphagia, unspecified; E11.9 Type 2 diabetes mellitus without complications; E87.5 Hyperkalemia; E78.00 Pure hypercholesterolemia, unspecified; Z88.0 Allergy status to penicillin; Z88.8 Allergy status to other drugs, medicaments and biological substances
CPT/HCPCS: 36415; 80048; 80053; 82962; 85025; 85610; 85730; 86850; 86900; 86901; 87081; 93005; 94002; 94003; 94150; 94664; 96374; 96375; 99285; J1815; J2250

== ENCOUNTER 2019-08-24 11:07 | Inpatient (IN) | payer BC ==
[~2019-08-24] VITALS: Ht 165.1 cm; Wt 74.8 kg
[~2019-08-24 11:07] MED LIST: ACETAMINOPHEN325 M1 GT; ALBUTEROL2.5 MG/3 M INH; ASPIRIN81 MG GT; ATORVASTATIN CA20 MG GT; BISACODYL10 M1 RC; BISACODYL5 MG ORAL; CATAPRES-TTS 11 EACH TDERMAL; CATAPRES0.1 MG ORAL; CHLORHEXIDINE118 ML TP; COZAAR50 MG GT; DECLOMYCIN150 MG GT; DOCUSATE SODIU100 MG GT; DUONEB 0.5-3(2.53 ML HHN; EPOGEN10000 UNIT SUBQ; FERROUS SU220 MG/53 GT; FERROUS SU220 MG/53 PO; FERROUS SULFAT325 MG ORAL; FLEET ENEMA133 ML RECTAL; HEPARIN SUBQ; HUMULIN R100 UNIT/1 SUBQ; HYDRALAZINE HCL50 MG GT; LEVOTHYROXINE100 MC1 IV; MAGNESIUM OXID400 M1 GT; MAGNESIUM400 M1 PO; MELATONIN1 MG GT; MILK OF MA2400 MG/10 GT; MIRALAX17 G2 GT; NEXIUM40 M2 GT; NORMODYNE100 MG GT; SODIUM CHLORIDE1 GM GT; SYNTHROID100 MCG GT; VITAMIN C500 M1 GT; VITAMIN D250000 UNI1 GT; ZOFRAN4 M3 GT
[2019-08-24] MEDS ORDERED: OMEPRAZOLE10 M1 GT (11:47)
[2019-08-24] MEDS ORDERED: NORMODYNE200 MG GT (11:47)
[2019-08-24] MEDS ORDERED: LONITEN2.5 MG GT (11:47)
[2019-08-24] MEDS ORDERED: LOSARTAN POTAS100 MG GT (11:47)
[2019-08-24] MEDS ORDERED: MILK OF MA2400 MG/10 GT (11:47)
[2019-08-24] MEDS ORDERED: FUROSEMIDE20 M1 GT (11:47)
--- NOTE | 2019-08-24 11:49 | Emergency Room Report ---
History of Present Illness General Chief Complaint: Abnormal Labs Present Illness HPI Disclaimer: Please note that this report is being documented using [employer] technology. This can lead to erroneous entry secondary to incorrect interpretation by the dictating instrument. HPI: 77 years old female with past medical history of stroke, intracranial bleeding, chronic respiratory failure, ventilator dependent, with tracheostomy status, hypertension, diabetes mellitus, dysphagia, G-tube, encephalopathy, chronic kidney disease presented for acute on chronic anemia. Globin noted to be 5.5 as an outpatient. Sent to the ER for transfusion. Unable to provide history as she is alert and oriented x1 at baseline. 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 COVID-19 Screening: Negative COVID-19 COVID-19 Testing Source: audra Patient History Reviewed Nursing Documentation: PMH: Agreed; PSxH: Agreed Nursing Documentation-PMH Hx Cardiac Problems: Yes - A-fib, hyperlipidemia, edema, anemia Hx Hypertension: Yes - Vitamin D deficiency Hx Asthma: Yes - PNA, Hx COPD: Yes - Tracheostomy Hx Diabetes: Yes Hx Cancer: No Hx Gastrointestinal Problems: Yes - GERD, G-tube, Hx Neurological Problems: Yes - SIADH, ICH Review of Systems All Other Systems: negative except mentioned in HPI Physical Exam Vital Signs Date Time Temp Pulse Resp B/P (MAP) Pulse Ox O2 Delivery O2 Flow Rate FiO2 08/24/19 11:08 97.5 72 20 122/68 (86) 99 Mechanical Ventilator 5.0 Sp02 EP Interpretation: reviewed, normal General Appearance: no apparent distress, Chronically Ill Head: normocephalic, atraumatic Eyes: bilateral eye PERRL, bilateral eye EOMI ENT: hearing grossly normal, moist mucus membranes Neck: supple, other - Tracheostomy in place Respiratory: lungs clear, normal breath sounds, no rhonchi, no respiratory distress, no retraction, no wheezing Cardiovascular #1: normal peripheral pulses, regular rate, rhythm, no murmur Gastrointestinal: non tender, soft, non-distended, no guarding, other - Gastrostomy tube present Neurologic: other - Sleeping but arousable, withdraws to pain, Skin: warm/dry, pallor Procedures Critical Care Time Critical Care Time Critical care is managing the patient due to presentation with anemia requiring my acute intervention. Critical care time is approximately 35 minutes and excludes procedures. Medical Decision Making Diagnostic Impression: Primary Impression: Acute on chronic anemia Additional Impression: Chronic respiratory failure ER Course MDM:patient presented from group home facility due to acute on chronic anemia. On exam vital signs were stable. Patient has had multiple transfusions in the past. Globin in the ER 5.3. Fusion ordered. Case discussed with patient's power of consumer attorney, the grandson who was agreeable and gave consent for transfusion. Patient will be admitted to the medical floor for further observation and transfusion. Labs - Laboratory Tests Test 08/24/19 11:40 White Blood Count 7.3 K/UL (4.8-10.8) Red Blood Count 1.88 M/UL (4.20-5.40) L Hemoglobin 5.3 G/DL (12.0-16.0) *L Hematocrit 16.8 % (37.0-47.0) L Mean Corpuscular Volume 89 FL (80-99) Mean Corpuscular Hemoglobin 28.3 PG (27.0-31.0) Mean Corpuscular Hemoglobin Concent 31.6 G/DL (32.0-36.0) L Red Cell Distribution Width 18.5 % (11.6-14.8) H Platelet Count 242 K/UL (150-450) Mean Platelet Volume 6.0 FL (6.5-10.1) L Neutrophils (%) (Auto) % (45.0-75.0) Lymphocytes (%) (Auto) % (20.0-45.0) Monocytes (%) (Auto) % (1.0-10.0) Eosinophils (%) (Auto) % (0.0-3.0) Basophils (%) (Auto) % (0.0-2.0) Differential Total Cells Counted 100 Neutrophils % (Manual) 79 % (45-75) H Lymphocytes % (Manual) 7 % (20-45) L Monocytes % (Manual) 5 % (1-10) Eosinophils % (Manual) 6 % (0-3) H Basophils % (Manual) 3 % (0-2) H Band Neutrophils 0 % (0-8) Platelet Estimate Adequate Platelet Morphology Normal Hypochromasia 4+ Anisocytosis 2+ Prothrombin Time 11.6 SEC (9.30-11.50) H Prothrombin Time INR 1.1 (0.9-1.1) Activated Partial Thromboplast Time 24 SEC (23-33) Sodium Level 147 MMOL/L (136-145) H Potassium Level 3.9 MMOL/L (3.5-5.1) Chloride Level 108 MMOL/L (98-107) H Carbon Dioxide Level 40 MMOL/L (21-32) H Anion Gap 0 mmol/L (5-15) L Blood Urea Nitrogen 28 mg/dL (7-18) H Creatinine 0.9 MG/DL (0.55-1.30) Estimated Glomerular Filtration Rate > 60 mL/min (>60) Glucose Level 110 MG/DL (74-106) H Calcium Level 9.0 MG/DL (8.5-10.1) Total Bilirubin 0.2 MG/DL (0.2-1.0) Aspartate Amino Transferase (AST) 20 U/L (15-37) Alanine Aminotransferase (ALT) 30 U/L (12-78) Alkaline Phosphatase 100 U/L (46-116) Total Protein 6.8 G/DL (6.4-8.2) Albumin 2.6 G/DL (3.4-5.0) L Globulin 4.2 g/dL Albumin/Globulin Ratio 0.6 (1.0-2.7) L Last Vital Signs Date Time Temp Pulse Resp B/P (MAP) Pulse Ox O2 Delivery O2 Flow Rate FiO2 08/24/19 11:08 97.5 72 20 122/68 (86) 99 Mechanical Ventilator 5.0 Status: unchanged Disposition: ADMITTED INPATIENT Condition: Serious Wally Gonzales M.D. Aug 24, 2019 11:49
[2019-08-24] MEDS ORDERED: LEVOTHYROXINE125 MCG ORAL (11:50)
[2019-08-24] MEDS ORDERED: VENTOLIN HFA18 GM INH (11:50)
[2019-08-24 11:53] VITALS: BP 122/68
--- NOTE | 2019-08-24 11:54 | NUR ---
ED Nurse Note: CHIP- SON
--- NOTE | 2019-08-24 11:58 | NUR ---
ED Nurse Note: Patient was BIBA from [facility] due to abnormal labs, hemoglobin level 5.5. Patient presented with tracheostomy, vent dependent, AAO x0, VSS at this time. 2 IV lines established, blood specimen was collected sent down.
--- NOTE | 2019-08-24 11:59 | NUR ---
ED Nurse Note: pt negative for dizziness/nausea/vomiting. GT dependent, intact and kempt.
[2019-08-24 12:02] LABS: HEMATOCRIT 16.8 % (37.0-47.0); MEAN CORPUSCULAR VOLUME 89 FL (80-99); PLATELET COUNT 242 K/UL (150-450); RED BLOOD COUNT 1.88 M/UL (4.20-5.40); RED CELL DISTRIBUTION WIDTH 18.5 % (11.6-14.8); WHITE BLOOD COUNT 7.3 K/UL (4.8-10.8)
[2019-08-24 12:05] LABS: HEMOGLOBIN 5.3 G/DL (12.0-16.0)
[2019-08-24 12:08] LABS: BLOOD UREA NITROGEN 28 mg/dL (7-18); CARBON DIOXIDE 40 MMOL/L (21-32); CHLORIDE 108 MMOL/L (98-107); CREATININE 0.9 MG/DL (0.55-1.30); POTASSIUM 3.9 MMOL/L (3.5-5.1); SODIUM 147 MMOL/L (136-145)
[2019-08-24 12:09] LABS: ANION GAP 0 mmol/L (5-15)
[2019-08-24 12:13] LABS: ALANINE AMINOTRANSFERASE 30 U/L (12-78); ALBUMIN 2.6 G/DL (3.4-5.0); ALBUMIN/GLOBULIN RATIO 0.6 (1.0-2.7); ALKALINE PHOSPHATASE 100 U/L (46-116); ASPARTATE AMINO TRANSFERASE 20 U/L (15-37); BILIRUBIN,TOTAL 0.2 MG/DL (0.2-1.0)
[2019-08-24 12:15] LABS: INR 1.1 (0.9-1.1)
--- NOTE | 2019-08-24 13:30 | NUR ---
ED Nurse Note: Blood transfusion started on RT Hand 20G IV site, patent and kempt. Crossmatch reviewed with ANGI Lara. Pt's VSS, NAD noted. Will continue to monitor. Initial BP: 122/54.
--- NOTE | 2019-08-24 13:40 | NUR ---
ED Nurse Note: Mechanical vent settings: AC16 TV400 PEEP5 FIO2 40%.
[2019-08-24 13:52] VITALS: BP 122/54
--- NOTE | 2019-08-24 14:39 | NUR ---
ED Nurse Note: report given to ANGI Matson in SDU.
--- NOTE | 2019-08-24 15:05 | NUR ---
TRANSFER TO SDU: Patient transferred to SDU as ordered, per Dr. Louis. Report given to ANGI Matson. Belongings and SNF packet sent with pt. Family and or S/O informed of transfer.
--- NOTE | 2019-08-24 15:15 | NUR ---
NURSE NOTES: Received patient from [facility]. Avani. Patient was receiving a PRBC. Assessment is done. Wound pictures are taken. Noted G-tube site was reddened with hyperpigmentation. Sacral has old healing wound. Bilateral lower extremities have pitting 3+ edema. VS is taken within normal limit. Patient is mechanical vent dependant.
[2019-08-24] MEDS ORDERED: Acetaminophen 650mg/20.3ml GT PRN ×2 (17:30→17:45)
[2019-08-24] MEDS ORDERED: cloNIDine 0.2mg Tab GT PRN (17:45)
[2019-08-24] MEDS ORDERED: Milk of Magnesia 30ml Ud GT PRN (17:45)
[2019-08-24] MEDS ORDERED: Fleet's Enema 133ml RECTAL PRN ×2 (17:45→18:15)
[2019-08-24] MEDS ORDERED: Vitamin D 50,000 units cap ORAL SCH (17:45)
[2019-08-24] MEDS: HydrALAZINE 50mg tab GT SCH (18:00)
[2019-08-24] MEDS: Magnesium Oxide 400mg tab GT SCH (18:54)
[2019-08-24] MEDS: Ascorbic Acid 500mg tab GT SCH (18:55)
--- NOTE | 2019-08-24 19:39 | NUR ---
HAND-OFF: Report given to Hina. Patient remain stable.
[2019-08-24] MEDS: Losartan 50mg tab GT SCH (20:38)
[2019-08-24] MEDS: Demeclocycline 150mg tab GT SCH (20:38)
[2019-08-24] MEDS: Labetalol 200mg tab GT SCH (20:39)
[2019-08-24] MEDS: Atorvastatin 20mg tab GT SCH (20:39)
--- NOTE | 2019-08-24 20:51 | NUR ---
NURSE NOTES: Spoke to Doctor Long to report the pts G tube is malfunctioning, can not flush, and the pt appears in pain when trying to flush G tube. he stated he will examine the pt tomorrow. I also reported 2100 G tube meds will be held/ can not be given.
[2019-08-24] MEDS: NovoLOG Insulin Flexpen SUBQ SCH (21:00)
[2019-08-24] MEDS ORDERED: Ferrous Sulfate 300 MG/5 ML UDC GT SCH (21:00)
--- NOTE | 2019-08-24 22:55 | NUR ---
NURSE NOTES: Spoke to Brendan De, next of kin. he stated Doctor Ethan explained endoscopy procedure to Brendan. Brendan De gave a Telephone consent, Cami WHITLEY is [facility]. consent signed and placed in pts chart.
--- NOTE | 2019-08-25 02:21 | NUR ---
NURSE NOTES: called Doctor Missy urgent line to report pts high blood pressure 192/ 117, HR 85 and requested anti hypertensives. awaiting call back. continuing to monitor pt.
--- NOTE | 2019-08-25 02:30 | Consultation ---
DATE OF CONSULTATION: 08/24/2019 GASTROENTEROLOGY CONSULTATION CONSULTING PHYSICIAN: Abner Long MD. CHIEF COMPLAINT: I was asked to see this patient by Dr. Duncan Louis for evaluation of severe anemia. HISTORY OF PRESENT ILLNESS: Patient is a debilitated 78-year-old woman with a history of intracranial bleeding resulting in stroke, quadriplegia, and ventilator dependence, who was in a chronic long-term difficulty where the labs showed severe anemia and she was therefore transferred to the hospital for further evaluation and care. The patient is unable to provide any history due to her debilitated state and therefore this information is mostly available from the chart and discussion with the patient's grandson. The patient has had a history of respiratory failure due to her intracranial bleeding and she had a tracheostomy tube for long-term ventilation as well as a gastrostomy tube for enteral access. She has received multiple blood transfusions today. PAST MEDICAL HISTORY: History of stroke, intracranial bleeding, respiratory failure, ventilator dependent, tracheostomy status, hypertension, diabetes, dysphagia, gastrostomy tube placement, chronic kidney disease. FAMILY HISTORY: Noncontributory. SOCIAL HISTORY: The patient resides in a long-term facility. Her grandson by the name of Brendan De looks after her affairs. He gave consent for the endoscopy after proper information was given. REVIEW OF SYSTEMS: Unobtainable. PHYSICAL EXAMINATION: GENERAL: Debilitated woman who was nonverbal on the ventilator, in no distress. HEENT: Normocephalic. NECK: Exam showed tracheostomy. CHEST: Revealed coarse breath sounds. CARDIOVASCULAR: Revealed a regular rate. ABDOMEN: Soft. There is a gastrostomy tube, which was in proper position. EXTREMITIES: Revealed severe contracture deformities in all 4 extremities. NEUROLOGIC: Notable for obtundation and encephalopathy. LABORATORY DATA: Noted. ASSESSMENT: This patient presents with severe anemia, which is in contrast to her 2019 laboratories here at [facility] where her blood count was essentially normal. The differential diagnosis would include both upper and lower gastrointestinal bleeding, although neither of them reported by the nursing staff today. Nonetheless, given the severity of her anemia, an endoscopy is to be done to evaluate for upper the GI sources. The stool will be checked for occult blood and further workup will depend on any other findings that may come. The patient has had a COVID test from a correction just a few days ago that was reportedly negative. RECOMMENDATIONS: 1. Keep patient NPO. 2. IV fluids. 3. Transfusions. 4. Endoscopy tomorrow. Thank you for asking me to participate in the care of this patient. Abner Long M.D. DR: TYRESE JOB#: [id number] CC:
--- NOTE | 2019-08-25 02:40 | NUR ---
NURSE NOTES: called doctor Ethan to state that pts blood pressure is 177/117, and that the G tube appears to be out of place (water comes out from stoma). he is aware of this. he stated it is ok to place Hydralazine 10 MG IV Q4 for SBP greater than 160.
[2019-08-25] MEDS: Pantoprazole Inj IVP SCH ×3 (03:24→20:15)
--- NOTE | 2019-08-25 03:38 | NUR ---
NURSE NOTES: pt blood pressure is now 147/70. vital signs stable.
[2019-08-25] MEDS: HydrALAZINE 50mg tab GT SCH ×4 (05:13→18:00)
[2019-08-25 05:14] LABS: BASOPHILS % (AUTO) 1.1 % (0.0-2.0); EOSINOPHILS % (AUTO) 3.5 % (0.0-3.0); HEMATOCRIT 25.2 % (37.0-47.0); HEMOGLOBIN 8.5 G/DL (12.0-16.0); LYMPHOCYTES % (AUTO) 10.2 % (20.0-45.0); MEAN CORPUSCULAR VOLUME 88 FL (80-99); MONOCYTES % (AUTO) 6.9 % (1.0-10.0); NEUTROPHILS % (AUTO) 78.3 % (45.0-75.0); PLATELET COUNT 279 K/UL (150-450); RED BLOOD COUNT 2.87 M/UL (4.20-5.40); WHITE BLOOD COUNT 9.4 K/UL (4.8-10.8)
[2019-08-25] MEDS: NovoLOG Insulin Flexpen SUBQ SCH ×3 (05:37→17:27)
[2019-08-25 05:43] LABS: ANION GAP 7 mmol/L (5-15); BLOOD UREA NITROGEN 25 mg/dL (7-18); CALCIUM 9.5 MG/DL (8.5-10.1); CARBON DIOXIDE 35 MMOL/L (21-32); CHLORIDE 107 MMOL/L (98-107); CREATININE 0.9 MG/DL (0.55-1.30); POTASSIUM 3.7 MMOL/L (3.5-5.1); SODIUM 149 MMOL/L (136-145)
--- NOTE | 2019-08-25 07:43 | NUR ---
Received patient from RN. Espinoza. Patient was receiving her 3rd PRBC. Noted G-tube is not useable. G-tube feeding is not running. Sacral has old healing wound and redness on G-tube site. BP is high. Bilateral lower extremities have pitting 3+ edema. Ventilator setting is per prescription. Will follow plan of care.
--- NOTE | 2019-08-25 07:51 | NUR ---
HAND-OFF: Report given to ANGI Tan and ANGI Dempsey. pt remains stable.
[2019-08-25 08:00] VITALS: BP 174/97
[2019-08-25] MEDS: Labetalol 200mg tab GT SCH ×2 (09:00→20:14)
[2019-08-25] MEDS: Calcium Carbonate 500mg w/Vit D 200iu tab GT SCH (09:00)
[2019-08-25] MEDS: Magnesium Oxide 400mg tab GT SCH ×3 (09:00→20:20)
[2019-08-25] MEDS: Multivitamins W/Minerals 15 ML UDC GT SCH (09:00)
[2019-08-25] MEDS ORDERED: Pantoprazole Inj IVP SCH (09:00)
[2019-08-25] MEDS: Ascorbic Acid 500mg tab GT SCH ×3 (09:00→20:20)
[2019-08-25] MEDS: Sodium Chloride 1gm Tab GT SCH (09:00)
[2019-08-25] MEDS: Demeclocycline 150mg tab GT SCH ×2 (09:00→20:14)
[2019-08-25] MEDS: Miralax 17gm pkt GT SCH (09:00)
[2019-08-25] MEDS: Minoxidil 2.5mg tab GT SCH (09:00)
[2019-08-25] MEDS: Docusate 100mg/10ml Liq GT SCH (09:00)
[2019-08-25] MEDS: Losartan 50mg tab GT SCH (09:00)
--- NOTE | 2019-08-25 09:45 | NUR ---
*-* NO INSURANCE INFORMATION TO WHOM TO SEND CLINICALS OR REVIEWS *-*
--- NOTE | 2019-08-25 09:46 | NUR ---
*-* INSURANCE *-* ALL AVAILABLE CLINICALS HAVE BEEN FAXED TO: [facility] #[phone] FAX#[phone] REVIEWS/CLINICALS Addendum: 08/25/19 at 0953 by MARIELLE SEVERINO CM Ref#[id number]
--- NOTE | 2019-08-25 10:11 | General Progress Note ---
Assessment/Plan Assessment/Plan: jAssessment - Resp failure - s/p Trach and PEG - Severe anemia - Occluded GT - contractures - ICB/CVA Recommendations - NPO - serial CBC - IV Hydralazine PRN - EGD with GT change today Subjective Allergies: Coded Allergies: NILAY INHIBITORS (Verified Allergy, Unknown, 12/13/18) AMLODIPINE (Verified Allergy, Unknown, 12/13/18) PENICILLINS (Verified Allergy, Unknown, 12/13/18) Uncoded Allergies: HYDROCHLORTHIAZIDE (Allergy, Unknown, 12/13/18) Subjective above noted GT occluded per RN unable to declog BP much higher over night IV hydralazine given to Rx H&H better after transfusion Objective Last 24 Hour Vital Signs Date Time Temp Pulse Resp B/P (MAP) Pulse Ox O2 Delivery O2 Flow Rate FiO2 08/25/19 10:09 174/97 08/25/19 08:00 97.7 101 26 174/97 (122) 99 08/25/19 07:42 97 08/25/19 07:00 98 25 40 08/25/19 05:13 157/80 08/25/19 04:00 Mechanical Ventilator 08/25/19 04:00 40 08/25/19 04:00 100 08/25/19 03:09 225/170 08/25/19 02:38 84 25 40 08/25/19 00:00 40 08/25/19 00:00 Mechanical Ventilator 08/25/19 00:00 147/45 08/25/19 00:00 78 08/24/19 22:34 86 26 40 08/24/19 20:39 85 160/41 08/24/19 20:38 160/41 08/24/19 20:00 Mechanical Ventilator 08/24/19 20:00 40 08/24/19 19:27 79 08/24/19 18:33 76 22 40 08/24/19 18:00 136/46 08/24/19 16:00 Mechanical Ventilator 08/24/19 16:00 40 08/24/19 15:58 75 21 40 08/24/19 15:53 Mechanical Ventilator 08/24/19 15:35 84 08/24/19 15:05 98.1 78 16 124/58 99 Mechanical Ventilator 5.0 40 08/24/19 13:52 98.1 86 16 122/54 99 Mechanical Ventilator 5.0 40 08/24/19 11:53 97.5 20 122/68 99 Mechanical Ventilator 5.0 08/24/19 11:39 55 29 98 Mechanical Ventilator 40 08/24/19 11:30 55 29 40 08/24/19 11:08 97.5 72 20 122/68 (86) 99 Mechanical Ventilator 5.0 Intake and Output 08/24/19 08/25/19 19:00 07:00 Intake Total 1 ml 500 ml Balance 1 ml 500 ml Intake Oral 1 ml Blood Product 500 ml Laboratory Tests 08/24/19 11:40: White Blood Count 7.3, Red Blood Count 1.88L, Hemoglobin 5.3*L, Hematocrit 16.8L , Mean Corpuscular Volume 89, Mean Corpuscular Hemoglobin 28.3, Mean Corpuscular Hemoglobin Concent 31.6L, Red Cell Distribution Width 18.5H, Platelet Count 242, Mean Platelet Volume 6.0L, Neutrophils (%) (Auto) , Lymphocytes (%) (Auto) , Monocytes (%) (Auto) , Eosinophils (%) (Auto) , Basophils (%) (Auto) , Differential Total Cells Counted 100, Neutrophils % ( Manual) 79H, Lymphocytes % (Manual) 7L, Monocytes % (Manual) 5, Eosinophils % ( Manual) 6H, Basophils % (Manual) 3H, Band Neutrophils 0, Platelet Estimate Adequate, Platelet Morphology Normal, Hypochromasia 4+, Anisocytosis 2+, Prothrombin Time 11.6H, Prothromb Time International Ratio 1.1, Activated Partial Thromboplast Time 24, Sodium Level 147H, Potassium Level 3.9, Chloride Level 108H, Carbon Dioxide Level 40H, Anion Gap 0L, Blood Urea Nitrogen 28H, Creatinine 0.9, Estimat Glomerular Filtration Rate > 60, Glucose Level 110H, Calcium Level 9.0, Total Bilirubin 0.2, Aspartate Amino Transf (AST/SGOT) 20, Alanine Aminotransferase (ALT/SGPT) 30, Alkaline Phosphatase 100, Total Protein 6.8, Albumin 2.6L, Globulin 4.2, Albumin/Globulin Ratio 0.6L 08/25/19 03:35: White Blood Count 9.4, Red Blood Count 2.87L, Hemoglobin 8.5#L, Hematocrit 25.2# L, Mean Corpuscular Volume 88, Mean Corpuscular Hemoglobin 29.7, Mean Corpuscular Hemoglobin Concent 33.9, Red Cell Distribution Width 17.0H, Platelet Count 279, Mean Platelet Volume 6.8, Neutrophils (%) (Auto) 78.3H, Lymphocytes (%) (Auto) 10.2L, Monocytes (%) (Auto) 6.9, Eosinophils (%) (Auto) 3.5H, Basophils (%) (Auto) 1.1, Sodium Level 149H, Potassium Level 3.7, Chloride Level 107, Carbon Dioxide Level 35H, Anion Gap 7, Blood Urea Nitrogen 25H, Creatinine 0.9, Estimat Glomerular Filtration Rate > 60, Glucose Level 93, Calcium Level 9.5 Height (Feet): 5 Height (Inches): 5.00 Weight (Pounds): 165 Objective debilitated AA woman NCAT (+) trach coarse BS RR abd soft ND, (+) GT (+) contractures Abner Long MD Aug 25, 2019 10:11
--- NOTE | 2019-08-25 10:12 | Pre-Procedure Note/Attestation ---
Pre-Procedure Note/Attestation Complete Prior to Procedure Planned Procedure: not applicable Procedure Narrative: EGD possible bx polypectomy hemostasis dilation and GT change Indications for Procedure Pre-Operative Diagnosis: anemia dysphagia Attestation I attest that I discussed the nature of the procedure; its benefits; risks and complications; and alternatives (and the risks and benefits of such alternatives ), prior to the procedure, with the patient (or the patient's legal traveling representative). I attest that, if there was a reasonable possibility of needing a blood transfusion, the patient (or the patient's legal traveling representative) was given the [facility] standardized written summary, pursuant to the Heladio Annika Blood Safety Act ([place] Health and Safety Code # 1645, as amended). I attest that I re-evaluated the patient just prior to the surgery and that there has been no change in the patient's H&P, except as documented below: Abner Long MD Aug 25, 2019 10:12
--- NOTE | 2019-08-25 10:29 | NUR ---
NURSE NOTES: GI-Lab team at bed side to prepare EGD.
[2019-08-25] MEDS ORDERED: Lidocaine 1% Plain 30 ml INJ ONE (10:48)
[2019-08-25] MEDS ORDERED: LR 1000ml ONE (11:00)
--- NOTE | 2019-08-25 11:00 | Anethesia Preoperative Eval ---
Anesthesia Pre-op PMH/ROS General Date of Evaluation: Aug 25, 2019 Time of Evaluation: 10:54 Anesthesiologist: Ying ASA Score: ASA 4 Mallampati Score Class I : Soft palate, uvula, fauces, pillars visible Class II: Soft palate, uvula, fauces visible Class III: Soft palate, base of uvula visible Class IV: Only hard plate visible Mallampati Classification: Class III Surgeon: Ethan Diagnosis: Malnutrition Surgical Procedure: PEG Anesthesia History: none Family History: no anesthesia problems Allergies: Coded Allergies: NILAY INHIBITORS (Verified Allergy, Unknown, 12/13/18) AMLODIPINE (Verified Allergy, Unknown, 12/13/18) PENICILLINS (Verified Allergy, Unknown, 12/13/18) Uncoded Allergies: HYDROCHLORTHIAZIDE (Allergy, Unknown, 12/13/18) Medications: see eMAR Patient NPO?: Yes Past Medical History Cardiovascular: Reports: HTN, arrhythmia - AFib, Pacemaker, HL Pulmonary: Reports: asthma, COPD Gastrointestinal/Genitourinary: Reports: GERD, CRI Neurologic/Psychiatric: Reports: dementia Endocrine: Reports: DM Hematology/Immune: Reports: anemia Anesthesia Pre-op Phys. Exam Physician Exam Last Vital Signs Date Time Temp Pulse Resp B/P (MAP) Pulse Ox O2 Delivery O2 Flow Rate FiO2 08/25/19 10:38 174/97 08/25/19 08:00 40 08/25/19 08:00 Mechanical Ventilator 08/25/19 08:00 97.7 101 26 99 08/24/19 15:05 5.0 Constitutional: NAD Neurologic: CN 2-12 intact Cardiovascular: RRR Respiratory: CTA Gastrointestinal: S/NT/ND Airway Exam Mallampati Score: Class III MO: limited ROM: limited Teeth: missing Anesthesia Pre-op A/P Labs Hematology Test 08/24/19 11:40 08/25/19 03:35 White Blood Count 7.3 K/UL (4.8-10.8) 9.4 K/UL (4.8-10.8) Red Blood Count 1.88 M/UL (4.20-5.40) L 2.87 M/UL (4.20-5.40) L Hemoglobin 5.3 G/DL (12.0-16.0) *L 8.5 G/DL (12.0-16.0) #L Hematocrit 16.8 % (37.0-47.0) L 25.2 % (37.0-47.0) #L Mean Corpuscular Volume 89 FL (80-99) 88 FL (80-99) Mean Corpuscular Hemoglobin 28.3 PG (27.0-31.0) 29.7 PG (27.0-31.0) Mean Corpuscular Hemoglobin Concent 31.6 G/DL (32.0-36.0) L 33.9 G/DL (32.0-36.0) Red Cell Distribution Width 18.5 % (11.6-14.8) H 17.0 % (11.6-14.8) H Platelet Count 242 K/UL (150-450) 279 K/UL (150-450) Mean Platelet Volume 6.0 FL (6.5-10.1) L 6.8 FL (6.5-10.1) Neutrophils (%) (Auto) % (45.0-75.0) 78.3 % (45.0-75.0) H Lymphocytes (%) (Auto) % (20.0-45.0) 10.2 % (20.0-45.0) L Monocytes (%) (Auto) % (1.0-10.0) 6.9 % (1.0-10.0) Eosinophils (%) (Auto) % (0.0-3.0) 3.5 % (0.0-3.0) H Basophils (%) (Auto) % (0.0-2.0) 1.1 % (0.0-2.0) Differential Total Cells Counted 100 Neutrophils % (Manual) 79 % (45-75) H Lymphocytes % (Manual) 7 % (20-45) L Monocytes % (Manual) 5 % (1-10) Eosinophils % (Manual) 6 % (0-3) H Basophils % (Manual) 3 % (0-2) H Band Neutrophils 0 % (0-8) Platelet Estimate Adequate Platelet Morphology Normal Hypochromasia 4+ Anisocytosis 2+ Coagulation Test 08/24/19 11:40 Prothrombin Time 11.6 SEC (9.30-11.50) H Prothromb Time International Ratio 1.1 (0.9-1.1) Activated Partial Thromboplast Time 24 SEC (23-33) Chemistry Test 08/24/19 11:40 08/25/19 03:35 Sodium Level 147 MMOL/L (136-145) H 149 MMOL/L (136-145) H Potassium Level 3.9 MMOL/L (3.5-5.1) 3.7 MMOL/L (3.5-5.1) Chloride Level 108 MMOL/L (98-107) H 107 MMOL/L (98-107) Carbon Dioxide Level 40 MMOL/L (21-32) H 35 MMOL/L (21-32) H Anion Gap 0 mmol/L (5-15) L 7 mmol/L (5-15) Blood Urea Nitrogen 28 mg/dL (7-18) H 25 mg/dL (7-18) H Creatinine 0.9 MG/DL (0.55-1.30) 0.9 MG/DL (0.55-1.30) Estimat Glomerular Filtration Rate > 60 mL/min (>60) > 60 mL/min (>60) Glucose Level 110 MG/DL (74-106) H 93 MG/DL (74-106) Calcium Level 9.0 MG/DL (8.5-10.1) 9.5 MG/DL (8.5-10.1) Total Bilirubin 0.2 MG/DL (0.2-1.0) Aspartate Amino Transf (AST/SGOT) 20 U/L (15-37) Alanine Aminotransferase (ALT/SGPT) 30 U/L (12-78) Alkaline Phosphatase 100 U/L (46-116) Total Protein 6.8 G/DL (6.4-8.2) Albumin 2.6 G/DL (3.4-5.0) L Globulin 4.2 g/dL Albumin/Globulin Ratio 0.6 (1.0-2.7) L Risk Assessment & Plan Assessment: ASA 4 Plan: GA Status Change Before Surgery: Mack Duffy MD Aug 25, 2019 11:00
--- NOTE | 2019-08-25 11:01 | Immediate Post-Op Evaluation ---
Immediate Post-Op Evalulation Immediate Post-Op Evalulation Procedure: PEG Date of Evaluation: Aug 25, 2019 Time of Evaluation: 12:08 IV Fluids: 300 LR Blood Products: 0 Estimated Blood Loss: 3 Urinary Output: 0 Blood Pressure Systolic: 108 Blood Pressure Diastolic: 51 Pulse Rate: 89 Respiratory Rate: 20 - mech vent O2 Sat by Pulse Oximetry: 100 Temperature (Fahrenheit): 98.7 Pain Score (1-10): 0 Nausea: No Vomiting: No Complications 0 Patient Status: no response, patent, ventilated, none Hydration Status: adequate Dru Vancomycin IV Given Within 1 Hr of Incision: Yes Time Given: 11:57 Mack He MD Aug 25, 2019 11:01
--- NOTE | 2019-08-25 11:02 | 48 Hour Post Anesthesia Eval ---
Post Anesthesia Evaluation Procedure: PEG Date of Evaluation: Aug 25, 2019 Time of Evaluation: 14:23 Blood Pressure Systolic: 156 0: 87 Pulse Rate: 89 Respiratory Rate: 20 - vent Temperature (Fahrenheit): 98.6 O2 Sat by Pulse Oximetry: 100 Airway: patent Nausea: No Vomiting: No Pain Intensity: 0 Hydration Status: adequate Cardiopulmonary Status: stable Mental Status/LOC: patient returned to baseline Follow-up Care/Observations: 0 Post-Anesthesia Complications: 0- Follow-up care needed: N/A Mack He MD Aug 25, 2019 11:01
[2019-08-25] MEDS ORDERED: Vancomycin 500 MG in D5W 110 ML IVPB SCH (12:00)
--- NOTE | 2019-08-25 12:18 | NUR ---
RD ASSESSMENT & RECOMMENDATIONS SEE CARE ACTIVITY FOR COMPLETE ASSESSMENT DAILY ESTIMATED NEEDS: Needs based on Critical care/ 60kg abw 22-28 kcals/kg 5636-4434 total kcals 1.2-2 g protein/kg 72-120 g total protein 25-30 mL/kg 0976-6410 total fluid mLs NUTRITION DIAGNOSIS: * Swallowing difficulty R/T dysphagia, respiratory status as evidenced by pt is trach-vent dep, PEG dep. CURRENT TF:NPO ENTERAL NUTRITION RECOMMENDATIONS: Jevity 1.2 @ 60ml/hr x 22 hrs (hold 1hr before and after Synthroid) to provide 1320ml, 1584kcal, 73g prot, 1065ml free water * As medically appropriate, initiate Jevity 1.2 @ 15ml/hr x 6hrs (pt w/ h/o DM, but on non-carb controlled TF F[employer], w/ good BG control, currently w/ national shortage of Glucerna 1.2/1.5) * Advance 10ml q 4-6 hrs as tolerated to goal * HOB over 30 degrees * Without IVF, water flush of 120ml q 6hrs * HOB over 30 degrees ADDITIONAL RECOMMENDATIONS: * Per SNF, HT=65", LY=538dpm (08/23/19) * Monitor BGs closely w/ non-carb controlled TF * Monitor lytes, replete as needed * Rec WC eval for sacral wound photo .
[2019-08-25] MEDS ORDERED: Bacitracin Oint UD TOPIC SCH ×2 (13:30→18:00)
[2019-08-25] MEDS ORDERED: Bactrim Susp 20ml NG SCH (13:30)
--- NOTE | 2019-08-25 14:18 | NUR ---
CASE MANAGEMENT: REVIEW 78 YEAR OLD FEMALE BIBA FROM [facility] CC: ABNORMAL LABS . HGB 5.5 SI: ANEMIA . CHRONIC RESPIRATORY FAILURE T 97.5 HR 55 RR 29 BP 122/68 SAT 99% MECH VENT FIO2 40 H/H 5.3/16.8 NA 147 BUN 28 IS: VANCOMYCIN IV X1 NS IVF BOLUS X1 TRANSFUSION PRBC 2 UNITS PATIENT ADMITTED TO STEP DOWN UNIT 08/24/2019 DCP: PATIENT IS FROM [facility]
[2019-08-25 16:00] VITALS: BP 182/94
--- NOTE | 2019-08-25 18:30 | History and Physical Report ---
DATE OF ADMISSION: 08/24/2019 REASON FOR ADMISSION: Anemia, possible GI bleed. HISTORY OF PRESENT ILLNESS: This is an 78-year-old female with multiple medical problems, essentially ventilator and bed-bound, noted to be profoundly anemic, which was significantly reduced from prior results. No evidence of GI bleeding. Patient was admitted, underwent transfusion. GI was called. Patient was unable to give any history. PAST MEDICAL HISTORY: Notable for stroke, intracranial bleeding, chronic shoulder dislocation, chronic respiratory failure, ventilator dependent, tracheostomy, G-tube. MEDICATIONS: Reviewed. ALLERGIES: Reviewed. SOCIAL HISTORY: Resides at [facility]. PHYSICAL EXAMINATION: GENERAL: An ill-appearing female, obtunded. VITAL SIGNS: Reviewed. Blood pressure elevated at 157/80, pulse 101, respirations 26, temperature 97.7, saturations adequate on 40%. HEENT: Negative. Tracheostomy midline. LUNGS: Moderate breath sounds. CARDIAC: S1, S2. Regular rate and rhythm at present. ABDOMEN: Soft, nontender. EXTREMITIES: Contracted with noted chronic shoulder dislocation. LABORATORY DATA: Otherwise reviewed. IMPRESSION: Anemia, possible GI bleed, SIADH, tracheostomy, G-tube, functional quadriplegia. RECOMMENDATIONS: Supportive care. Monitor clinically. Transfuse 4 units with improved hemoglobin. GI clearance and recommendations. Resume medications from [facility] and we will follow clinically for change. Adjust blood pressure medications for further changes, interventions, and reassess. Duncan Louis M.D. DR: GUILLERMO JOB#: [id number] CC:
--- NOTE | 2019-08-25 19:10 | NUR ---
NURSE NOTES: Received report from Roselyn RN/ BritneyRN. Patient asleep in bed, afebrile and has no respiratory distress noted. On [facility] vent Portex 7, AC 16, TV 400, fi02 40%, peep 5 saturating at 98-99%. with new GT on left lower quadrant intact and asymptomatic. With R hand 20g and left forearm 20g IV lines intact and asymptomatic. HOB elevated, Bed wheels are locked and side rails are up. Continue current plan of care.
--- NOTE | 2019-08-25 19:30 | NUR ---
HAND-OFF: Report given to YIN SINGH RN.
--- NOTE | 2019-08-25 19:43 | NUR ---
NURSE NOTES:WOUND CARE NOTES:Pt presented on admission with Bilat Foot drop, contractures of both upper extremities and a reabsorbing Sacral DTPI . Base of wound is maroon without induration or fluctuance . An area of loose dry skin noted at sacrococcygeal area. Non-Blanching erythema noted along borders.5cm x (W)5.5cm. R and L Heels are boggy with non-Blanching erythema. Pt has a Tracheostomy. No evidence of skin breakdown noted under collar of trach. Tx.Plan:Apply Moisture Barrier Paste to Sacrum. Cover with Optifoam drsg. Changee very 3 days and prn. Apply Cavilon Skin Barrier to both heels. Cover each Heel with Optifoam drsg. Change every 7 days and prn. Reposition at least every 2hours or as tolerated. Off-load heels with Pillows. APM/ASIM Mattress overlay.
[2019-08-25 20:00] VITALS: BP 186/86
[2019-08-25] MEDS: Atorvastatin 20mg tab GT SCH (20:14)
[2019-08-25] MEDS: Epoetin Alfa-EPBX (NON ESRD)10,000 unit/ml vial SUBQ SCH (20:15)
[2019-08-25] MEDS: Bacitracin Oint UD TOPIC SCH (20:15)
[2019-08-25] MEDS: Bactrim Susp 20ml NG SCH (20:20)
--- NOTE | 2019-08-25 20:33 | Consultation ---
History of Present Illness General Date patient seen: Aug 25, 2019 Reason for Hospitalization: Abnormal Labs Present Illness HPI This is a 78-year-old female multi-medical comorbidities who is a [facility] with history of intracranial bleed status post intervention who is now debilitated trach PEG care dependent that was identified to have severe anemia and transferred to [facility] further care management. She has been transfused multiple units PRBC and undergoing medical care plan. Identified to potential concerns for GI bleed as well as other etiologies and noted to have multiple decubitus ulcers. Surgery called to evaluate assist with care. Patient seen, patient evaluated, chart reviewed. Micro labs noted. Allergies: Coded Allergies: NILAY INHIBITORS (Verified Allergy, Unknown, 12/13/18) AMLODIPINE (Verified Allergy, Unknown, 12/13/18) PENICILLINS (Verified Allergy, Unknown, 12/13/18) Uncoded Allergies: HYDROCHLORTHIAZIDE (Allergy, Unknown, 12/13/18) COVID-19 Screening Contact w/high risk pt: Yes Recent Travel to affected area: No Experienced COVID-19 symptoms?: No Medication History Scheduled Albuterol Sulfate (Ventolin Hfa), 2 PUFFS INH EVERY 6 HOURS, (Reported) Ascorbic Acid* (Vitamin C*), 500 MG GT DAILY, (Reported) Aspirin* (Aspirin*), 81 MG GT DAILY, (Reported) Atorvastatin Calcium* (Atorvastatin Calcium*), 20 MG GT BEDTIME, (Reported) Chlorhexidine Gluconate (Chlorhexidine Gluconate), 10 ML TP EVERY MORNING, ( Reported) Iqnzroyal-Mkf-2* (Bogxpbvt-Hes-0*), 1 PATCH TDERMAL ONCE A WEEK, (Reported) Demeclocycline HCl (Demeclocycline HCl), 150 MG GT Q12HR, (Reported) Docusate Sodium* (Docusate Sodium*), 100 MG GT DAILY, (Reported) Epoetin Mehran (Epogen), 10,000 UNIT SUBQ 3XW, (Reported) Ergocalciferol (Vitamin D2)* (Vitamin D*), 50,000 UNIT GT ONCE A WEEK, (Reported ) Esomeprazole Magnesium (Nexium), 40 MG GT DAILY, (Reported) Ferrous Sulfate (Ferrous Sulfate), 330 MG GT DAILY, (Reported) Furosemide* (Lasix*), 20 MG GT DAILY, (Reported) Heparin Sod,Porcine/0.9 % NaCl (Heparin 2,500 Unit/5 ml-Ns Syr), 5,000 UNIT SUBQ Q12HR, (Reported) Hydralazine Hcl* (Hydralazine Hcl*), 75 MG GT EVERY 8 HOURS, (Reported) Labetalol HCl (Labetalol HCl), 200 MG GT EVERY 12 HOURS, (Reported) Levothyroxine Sodium* (Levothyroxine Sodium*), 175 MCG ORAL DAILY, (Reported) Losartan Potassium (Losartan Potassium), 100 MG GT DAILY, (Reported) Magnesium Hydroxide* (Milk Of Magnesia*), 15 ML GT DAILY, (Reported) Magnesium Oxide (Magnesium Oxide), 400 MG GT BID, (Reported) Melatonin (Melatonin), 5 MG GT DAILY, (Reported) Omeprazole (Omeprazole), 2 MG GT DAILY, (Reported) Polyethylene Glycol 3350* (Miralax*), 17 GM GT DAILY, (Reported) Sodium Chloride* (Sodium Chloride*), 1 GM GT DAILY, (Reported) Scheduled PRN Acetaminophen* (Acetaminophen 325MG Tablet*), 650 MG GT Q6H PRN for MILD PAIN OR TEMP >100, (Reported) Albuterol Sulfate* (Albuterol Sulfate Hhn*), 3 ML INH Q4H PRN for Shortness of Breath, (Reported) Bisacodyl (Bisacodyl), 10 MG RC PRN PRN for CONST IF MOM INEFFECTIVE, (Reported) Clonidine Hcl* (Catapres*), 0.2 MG ORAL EVERY 4 HOURS PRN for ELEVATED BP, ( Reported) Magnesium Hydroxide* (Milk Of Magnesia*), 30 ML GT DAILY PRN for Constipation, ( Reported) Na Phos,M-B/Na Phos,Di-Ba* (Fleet Enema*), 133 ML RECTAL DAILY PRN for CONST IF BISACODYL SUPP INEFF., (Reported) Ondansetron* (Zofran*), 4 MG GT Q4H PRN for Nausea & Vomiting, (Reported) Miscellaneous Medications Insulin Regular, Human (Humulin R), SUBQ, (Reported) Ipratropium/Albuterol Sulfate (DuoNeb 0.5-3(2.5)mg/3ml), Unknown Dose HHN, ( Reported) Minoxidil (Minoxidil), 2.5 MG GT, (Reported) Discontinued Medications Labetalol HCl (Labetalol HCl), 100 MG GT EVERY 12 HOURS, (Reported) Discontinued Reason: Pt had allergic rxn Levothyroxine Sodium* (Synthroid*), 100 MCG GT DAILY, (Reported) Discontinued Reason: MD discontinued med Losartan Potassium* (Cozaar*), 100 MG GT DAILY, (Reported) Discontinued Reason: Medication dose changed Patient History Limited by: medical condition History Provided By: Medical Record, PMD Healthcare decision maker BERNIE IBANEZ Resuscitation status Advanced Directive on File Past Medical/Surgical History Past Medical/Surgical History: (1) Shoulder dislocation (2) Ventilator dependence (3) Chronic anemia (4) Chronic respiratory failure (5) Acute on chronic anemia Review of Systems Review of Symptoms -E-p-w-e-r-a-l- -R-O-S--:- -n-o- -i-h-v-g-h-t- -l-o-s-s- -o-r- -f-e-v-e-r- -C-r-h-r-w-d-q-u-c-i-c-a-l- -R-O-S--:- -n-o- -k-b-l-d-h-g-s-i-o-n- -o-r- -m-o-o-d- -o-h-n-n-g-e-s--,- -n-o- -h-k-s-o-r-y- -l-o-s-s- -L-x-y-w-q-e-l-m-i-c- -R-O-S--:- -n-o- -g-o-z-u-a-l- -z-j-n-n-g-e-s- -o-r- -e-y-e- -v-m-y-i-e-i-t-i-o-n- -E-N-T- -R-O-S--:- -n-o- -n-a-s-a-l- -l-o-x-t-e-p-t-i-o-n--,- -j-d-q-r-i-n-g- -l-o-s-s--,- -b-m-c-w-h-p-e-s-s- -D-f-c-e-r-g-y- -a-n-d- -W-b-n-x-z-s-l-o-g-y- -R-O-S--:- -n-o- -c-i-g-e-r-g-i-c- -n-u-t-p-t-o-m-s- -o-r- -b-j-d-y-w-b-r-i-a- -U-s-h-z-z-a-b-y-n-i-c-a-l- -a-n-d- -Z-w-i-k-s-g-t-i-c- -R-O-S--:- -n-o- -b-w-b-l-l-e-n- -q-r-e-n-d-s--,- -v-d-h-s-u-a-l- -j-o-z-e-d-i-n-g- -o-r- -c-i-i-i-s-i-n-g- -Z-f-k-w-m-i-i-n-e- -R-O-S--:- -n-o- -h-j-z-y-u-r-i-a--,- -b-v-h-w-i-w-p-s-i-a- -,- -g-z-n-g-h-t- -s-t-j-n-g-e-s--,- -i-b-a-q-j-h-a-t-u-r-e- -l-l-p-p-j-s-r-a-n-c-e- -M-i-e-y-y-l-a-t-o-r-y- -R-O-S--:- -n-o- -c-o-u-g-h--,- -c-s-c-f-k-h-e-s-s- -o-f- -q-e-l-a-t-h--,- -o-r- -a-y-x-e-z-i-n-g- -L-v-i-h-c-o-i-y-z-c-u-l-a-r- -R-O-S--:- -n-o- -c-h-e-s-t- -p-a-i-n- -o-r- -n-w-v-p-n-e-a- -o-n- -t-b-l-r-t-i-o-n- -Q-t-d-j-k-e-g-c-e-i-u-s-i-n-a-l- -R-O-S--:- -e-p-u-i-e-s- -h-q-x-n-r-d-n-a-l- -p-a-i-n--,- -k-g-w-g-h-t- -r-e-d- -b-l-o-o-d- -i-n- -s-t-o-o-l-.- -Y-n-d-s-c-d-x-u-c-z-v-w-t-a-l- -R-O-S--:- -n-o- -j-z-v-l-g-i-a-s- -o-r- -r-g-s-b-s-j-l-g-i-a-s- -Y-h-w-i-m-v-u-i-g-c-a-l- -R-O-S--:- -n-o- -T-I-A- -o-r- -p-h-u-o-k-e- -v-w-f-p-t-o-m-s- -P-k-h-o-h-m-x-b-o-g-i-c-a-l- -R-O-S--:- -n-o- -n-e-w- -o-r- -b-g-v-n-g-i-n-g- -s-k-i-n- -b-u-v-i-o-n-s--,- -t-g-a-h-e-s- -o-r- -n-b-n-r-i-t-i-s- Unable to obtain given patient's baseline medical condition Physical Exam Physical Exam General appearance: no distress, appears stated age Head: Normocephalic, without obvious abnormality, atraumatic Eyes: conjunctivae/corneas clear. PERRL, EOM's intact. Fundi benign Throat: Lips, mucosa, and tongue normal. Teeth and gums normal Neck: supple, symmetrical, trachea midline, no adenopathy, thyroid: not enlarged, symmetric, no tenderness/mass/nodules, no carotid bruit and no JVD trach Lungs: clear to auscultation bilaterally Heart: regular rate and rhythm, S1, S2 normal, no murmur, click, rub or gallop Abdomen: soft, non-tender. Bowel sounds normal. No masses, no organomegaly + PEG Extremities: extremities normal, atraumatic, no cyanosis or edema Pulses: 2+ and symmetric Skin: Skin see below Neurologic: defer Last 24 Hour Vital Signs Date Time Temp Pulse Resp B/P (MAP) Pulse Ox O2 Delivery O2 Flow Rate FiO2 08/25/19 20:14 83 186/86 08/25/19 19:02 83 19 40 08/25/19 17:29 182/94 08/25/19 16:00 Mechanical Ventilator 08/25/19 16:00 40 08/25/19 16:00 97.7 84 20 182/94 (123) 96 08/25/19 15:52 76 08/25/19 14:30 75 19 40 08/25/19 12:04 89 20 100 08/25/19 12:03 89 20 100 08/25/19 12:00 Mechanical Ventilator 08/25/19 12:00 40 08/25/19 11:43 68 08/25/19 11:00 80 18 40 08/25/19 10:38 174/97 08/25/19 10:09 174/97 08/25/19 08:00 40 08/25/19 08:00 Mechanical Ventilator 08/25/19 08:00 97.7 101 26 174/97 (122) 99 08/25/19 07:42 97 08/25/19 07:00 98 25 40 08/25/19 05:13 157/80 08/25/19 04:00 Mechanical Ventilator 08/25/19 04:00 40 08/25/19 04:00 100 08/25/19 03:09 225/170 08/25/19 02:38 84 25 40 08/25/19 00:00 40 08/25/19 00:00 Mechanical Ventilator 08/25/19 00:00 147/45 08/25/19 00:00 78 08/24/19 22:34 86 26 40 08/24/19 20:39 85 160/41 08/24/19 20:38 160/41 Intake and Output 08/24/19 08/25/19 19:00 07:00 Intake Total 1 ml 500 ml Balance 1 ml 500 ml Intake Oral 1 ml Blood Product 500 ml Laboratory Tests Test 08/25/19 03:35 08/25/19 18:00 White Blood Count 9.4 K/UL (4.8-10.8) Red Blood Count 2.87 M/UL (4.20-5.40) L Hemoglobin 8.5 G/DL (12.0-16.0) #L Hematocrit 25.2 % (37.0-47.0) #L Mean Corpuscular Volume 88 FL (80-99) Mean Corpuscular Hemoglobin 29.7 PG (27.0-31.0) Mean Corpuscular Hemoglobin Concent 33.9 G/DL (32.0-36.0) Red Cell Distribution Width 17.0 % (11.6-14.8) H Platelet Count 279 K/UL (150-450) Mean Platelet Volume 6.8 FL (6.5-10.1) Neutrophils (%) (Auto) 78.3 % (45.0-75.0) H Lymphocytes (%) (Auto) 10.2 % (20.0-45.0) L Monocytes (%) (Auto) 6.9 % (1.0-10.0) Eosinophils (%) (Auto) 3.5 % (0.0-3.0) H Basophils (%) (Auto) 1.1 % (0.0-2.0) Sodium Level 149 MMOL/L (136-145) H Potassium Level 3.7 MMOL/L (3.5-5.1) Chloride Level 107 MMOL/L (98-107) Carbon Dioxide Level 35 MMOL/L (21-32) H Anion Gap 7 mmol/L (5-15) Blood Urea Nitrogen 25 mg/dL (7-18) H Creatinine 0.9 MG/DL (0.55-1.30) Estimat Glomerular Filtration Rate > 60 mL/min (>60) Glucose Level 93 MG/DL (74-106) Calcium Level 9.5 MG/DL (8.5-10.1) Stool Occult Blood Pending Height (Feet): 5 Height (Inches): 5.00 Weight (Pounds): 165 Medications Current Medications Medications (Trade) Dose Ordered Sig/Jane Route PRN Reason Start Time Stop Time Status Last Admin Dose Admin Acetaminophen (Tylenol) 650 mg Q4H PRN GT Mild Pain (Pain Scale 1-3) 08/24/19 17:30 09/23/19 17:29 Acetaminophen (Tylenol) 650 mg Q4H PRN GT Temp >100.5 08/24/19 17:45 09/23/19 17:44 Al Hydroxide/Mg Hydroxide (Mylanta) 30 ml Q4H PRN GT STOMACH UPSET 08/24/19 17:30 09/23/19 17:29 Ascorbic Acid (Vitamin C) 500 mg EVERY 12 HOURS GT 08/25/19 21:00 09/23/19 17:59 08/25/19 20:20 Atorvastatin Calcium (Lipitor) 20 mg BEDTIME GT 08/24/19 21:00 11/22/19 20:59 08/25/19 20:14 Bacitracin (Bacitracin) 1 applic EVERY 12 HOURS TOPIC 08/25/19 21:00 09/03/19 21:01 08/25/19 20:15 Barium Sulfate (Readi-Cat 2) 450 ml NOW PRN ORAL Radiology Procedure 08/25/19 20:30 08/27/19 20:23 UNV Calcium/Vitamin D (OsCal D) 1 tab DAILY GT 08/25/19 09:00 11/23/19 08:59 Clonidine HCl (Catapres TTS-2) 1 patch QWEEK TDERMAL 08/25/19 10:00 11/23/19 09:59 08/25/19 10:38 Clonidine HCl (Catapres tab) 0.2 mg Q4H PRN GT For High Blood Pressure 08/24/19 17:45 11/22/19 17:44 Demeclocycline HCl (Declomycin) 150 mg Q12HR GT 08/24/19 21:00 08/31/19 20:59 08/25/19 20:14 Dextrose (Dextrose 50%) 25 ml Q30M PRN IV Hypoglycemia 08/24/19 19:15 11/22/19 19:14 Dextrose (Dextrose 50%) 50 ml Q30M PRN IV Hypoglycemia 08/24/19 19:15 11/22/19 19:14 Docusate Sodium (Colace) 100 mg DAILY GT 08/25/19 09:00 09/24/19 08:59 Epoetin Mehran (Epoetin Mehran-EPBX(NON ESRD)) 10,000 unit FRI-FRI-FRI SUBQ 08/25/19 21:00 11/23/19 20:59 08/25/19 20:15 Furosemide (Lasix) 20 mg DAILY GT 08/25/19 09:00 09/24/19 08:59 Hydralazine HCl (Apresoline) 10 mg Q4H PRN IV For High Blood Pressure 08/25/19 03:00 11/23/19 02:59 08/25/19 17:29 Hydralazine HCl (Apresoline) 100 mg Q6HR GT 08/24/19 18:00 11/22/19 17:59 Insulin Aspart (NovoLOG) EVERY 6 HOURS SUBQ 08/25/19 12:00 11/22/19 20:59 Labetalol HCl (Normodyne) 200 mg Q12HR GT 08/24/19 21:00 09/23/19 20:59 08/25/19 20:14 Levothyroxine Sodium (Synthroid) 75 mcg DAILY@0630 GT 08/25/19 06:30 09/24/19 06:29 Levothyroxine Sodium (Synthroid) 100 mcg DAILY@0630 GT 08/25/19 06:30 09/24/19 06:29 Magnesium Hydroxide (Mom) 30 ml DAILYPRN PRN GT Constipation 08/24/19 17:45 09/23/19 17:44 Magnesium Oxide (Mag-Ox 400mg) 400 mg EVERY 12 HOURS GT 08/25/19 21:00 09/23/19 17:59 08/25/19 20:20 Minoxidil (Loniten) 2.5 mg DAILY GT 08/25/19 09:00 11/23/19 08:59 Multivitamins (Multivitamins W/ Minerals 15ml Liquid) 15 ml DAILY GT 08/25/19 09:00 09/24/19 08:59 Ondansetron HCl (Zofran) 4 mg Q6H PRN IVP Nausea & Vomiting 08/24/19 17:45 09/23/19 17:44 Pantoprazole (Protonix) 40 mg EVERY 12 HOURS IVP 08/25/19 03:15 09/24/19 03:14 08/25/19 20:15 Polyethylene Glycol (Miralax) 17 gm DAILY GT 08/25/19 09:00 09/24/19 08:59 Sodium Chloride 1,000 ml @ 100 mls/hr Q10H IV 08/24/19 17:30 09/23/19 17:29 08/25/19 14:24 Sodium Chloride (NaCl) 1 gm DAILY GT 08/25/19 09:00 09/24/19 08:59 Sodium Phosphate (Fleet's Sodium Phosl Enema) 133 ml DAILYPRN PRN RECTAL constipation 08/24/19 18:15 09/23/19 17:44 Trimethoprim/ Sulfamethoxazole (Bactrim-DS) 20 ml EVERY 12 HOURS NG 08/25/19 21:00 09/03/19 21:01 08/25/19 20:20 Assessment/Plan Problem List: (1) Decubitus skin ulcer Assessment & Plan: Pt presented on admission with Bilat Foot drop, contractures of both upper extremities and a reabsorbing Sacral DTPI . Base of wound is maroon without induration or fluctuance . An area of loose dry skin noted at sacrococcygeal area. Non-Blanching erythema noted along borders.5cm x (W)5.5cm. R and L Heels are boggy with non-Blanching erythema. Pt has a Tracheostomy. No evidence of skin breakdown noted under collar of trach. Tx.Plan: Apply Moisture Barrier Paste to Sacrum. Cover with Optifoam drsg. Changee very 3 days and prn. Apply Cavilon Skin Barrier to both heels. Cover each Heel with Optifoam drsg. Change every 7 days and prn. Reposition at least every 2hours or as tolerated. Off-load heels with Pillows. APM/ASIM Mattress overlay. DAILY ESTIMATED NEEDS: Needs based on Critical care/ 60kg abw 22-28 kcals/kg 4438-1365 total kcals 1.2-2 g protein/kg 72-120 g total protein 25-30 mL/kg 8848-6659 total fluid mLs NUTRITION DIAGNOSIS: * Swallowing difficulty R/T dysphagia, respiratory status as evidenced by pt is trach-vent dep, PEG dep. CURRENT TF:NPO ENTERAL NUTRITION RECOMMENDATIONS: Jevity 1.2 @ 60ml/hr x 22 hrs (hold 1hr before and after Synthroid) to provide 1320ml, 1584kcal, 73g prot, 1065ml free water * As medically appropriate, initiate Jevity 1.2 @ 15ml/hr x 6hrs (pt w/ h/o DM, but on non-carb controlled TF [employer], w/ good BG control, currently w/ national shortage of Glucerna 1.2/1.5) * Advance 10ml q 4-6 hrs as tolerated to goal * HOB over 30 degrees * Without IVF, water flush of 120ml q 6hrs * HOB over 30 degrees ADDITIONAL RECOMMENDATIONS: * Per SNF, HT=65", VY=293wap (08/23/19) * Monitor BGs closely w/ non-carb controlled TF * Monitor lytes, replete as needed * Rec WC eval for sacral wound photo . ICD Codes: L89.90 - Pressure ulcer of unspecified site, unspecified stage SNOMED: 049808497 (2) Chronic respiratory failure ICD Codes: J96.10 - Chronic respiratory failure, unspecified whether with hypoxia or hypercapnia SNOMED: 04650306, 2044062 (3) Acute on chronic anemia ICD Codes: D64.9 - Anemia, unspecified SNOMED: 331094348, 5484827 (4) Shoulder dislocation ICD Codes: S43.006A - Unspecified dislocation of unspecified shoulder joint, initial encounter SNOMED: 855176503, 260020856 (5) Ventilator dependence ICD Codes: Z99.11 - Dependence on respirator [ventilator] status SNOMED: 481757171 (6) Chronic anemia ICD Codes: D64.9 - Anemia, unspecified SNOMED: 708212482 (7) GI bleed Assessment & Plan: Patient admitted with severe anemia likely source GI. Guaiac positive. No active bleeding noted. G-tube suction without blood. Plan for scope by GI. Will await findings. Transfusions H&H improved we will monitor. Coags noted stable We will be available in case of surgical intervention necessary for GI bleed unable to identify or manage with scope. Will follow with recommendations thank you for let me participate in patient's care ICD Codes: K92.2 - Gastrointestinal hemorrhage, unspecified SNOMED: 81576369 Rocky Montenegro Aug 25, 2019 20:33
[2019-08-26] VITALS: BP 155/67
[2019-08-26] MEDS: HydrALAZINE 50mg tab GT SCH ×5 (01:02→23:16)
--- NOTE | 2019-08-26 03:38 | NUR ---
NURSE NOTES: Patient asleep in bed, gown changed and cleaned. Continue to monitor patient
[2019-08-26 04:00] VITALS: BP 162/79
--- NOTE | 2019-08-26 04:30 | Procedure Note ---
DATE OF PROCEDURE: 08/25/2019 GASTROENTEROLOGY PROCEDURE REPORT PROCEDURE: Upper gastrointestinal endoscopy with gastrostomy tube placement. SURGEON: Abner Long MD. ANESTHESIA: Please see the separate anesthesiologist notes for details. PRE-ENDOSCOPIC DIAGNOSES: 1. Significant drop in hematocrit, rule out upper GI bleeding. 2. Dysphagia and occluded gastrostomy catheter. DESCRIPTION OF PROCEDURE: The procedure, its risks, indications, alternatives, and possible complications including but not limited to bleeding, infection, perforation, , and anesthesia complications were explained to the patient's family and informed consent was obtained. Initially, it was discussed with the grandson that the procedure will be an endoscopy with gastrostomy tube placement. Subsequently, it was determined during the procedure that the replacement was not possible and therefore the grandson was contacted intraoperatively to extend the consent to a brand new gastrostomy catheter placement. The patient was sedated in the supine position. A diagnostic upper endoscope was introduced through oropharynx and advanced to the duodenum. The endoscope was then gradually withdrawn and the mucosa examined carefully. Examination of the upper gastrointestinal mucosa revealed a 7 cm hiatal hernia. Beyond the hiatal hernia in the distal stomach, there was a shallow ulcer corresponding to the previous gastrostomy tube site. The gastrostomy tube in fact was removed prior to the endoscopy and now it appears that the catheter was within the anterior abdominal wall and not within the stomach itself. Multiple attempts were made with a Baer catheter as well as guidewire to gain access to the stomach, but the hole had already sealed and could not be reopened. It was at this time that the grandson was called and the situation was discussed. A separate consent was now obtained for a formal new gastrostomy tube placement. There was no evidence of bleeding in the upper GI tract. The location for placement of gastrostomy tube was identified by palpation and transillumination techniques. The previous gastrostomy site appeared to be indurated. There was some small margin of erythema around it. Care was taken to place the gastrostomy tube in a new position away from this area of inflammatory change and potential infection. This location was identified by palpation and transillumination techniques. A 1 cm incision was made. The trocar needle was used to place the gastrostomy tube using the standard pull technique. Position was verified endoscopically. The endoscope was removed. The patient was left to recovery in good condition. COMPLICATIONS: None. ASSESSMENT: This patient's previous gastrostomy tube funnel tip was within the anterior abdominal wall and not in the gastric cavity and the gastrostomy closed. There was some induration and erythema in this area and therefore the patient will be given a 10-day course of Bactrim to treat any infection in the area. The new gastrostomy tube can be meanwhile used for medications such as antihypertensives especially since the patient has had very severe portal hypertension off of the medications. Tube feeding can be started tomorrow if stable. The patient can undergo a CT scan of the abdomen and pelvis to rule out any intraabdominal bleeding such as psoas hematoma, which can sometimes cause a drop in hematocrit. RECOMMENDATIONS: 1. Proceed with use of gastrostomy catheter for medications. 2. Bactrim twice daily for 10 days. 3. Local antibiotic ointment to the prior gastrostomy site. 4. CT scan of the abdomen and pelvis (free air will be expected after a gastrostomy tube). Abner Long M.D. DR: TYRESE JOB#: [id number] CC:
[2019-08-26 04:39] LABS: HEMATOCRIT 28.8 % (37.0-47.0); HEMOGLOBIN 9.7 G/DL (12.0-16.0); MEAN CORPUSCULAR VOLUME 88 FL (80-99); PLATELET COUNT 258 K/UL (150-450); RED BLOOD COUNT 3.25 M/UL (4.20-5.40); RED CELL DISTRIBUTION WIDTH 17.1 % (11.6-14.8)
[2019-08-26 04:54] LABS: WHITE BLOOD COUNT 23.4 K/UL (4.8-10.8)
[2019-08-26] MEDS: NovoLOG Insulin Flexpen SUBQ SCH ×5 (06:00→23:15)
--- NOTE | 2019-08-26 07:40 | NUR ---
HAND-OFF: Report given to Anat RN/ ANGI Tan. Pt stable and in bed
--- NOTE | 2019-08-26 07:58 | General Progress Note ---
Assessment/Plan Assessment/Plan: IMPRESSION: Anemia, possible GI bleed, SIADH, tracheostomy, G-tube, functional quadriplegia. possible GT site cellulitis, leukocytosis, possible sepsis PLAN ID to see antibiotics broad panculture vent support monitor GT change impression, plan, and exam edited and reviewed in detail care discussed with RN Subjective ROS Limited/Unobtainable: Yes Allergies: Coded Allergies: NILAY INHIBITORS (Verified Allergy, Unknown, 12/13/18) AMLODIPINE (Verified Allergy, Unknown, 12/13/18) PENICILLINS (Verified Allergy, Unknown, 12/13/18) Uncoded Allergies: HYDROCHLORTHIAZIDE (Allergy, Unknown, 12/13/18) Subjective elevated wbc s/p EGD Objective Last 24 Hour Vital Signs Date Time Temp Pulse Resp B/P (MAP) Pulse Ox O2 Delivery O2 Flow Rate FiO2 08/26/19 07:03 84 21 40 08/26/19 06:18 162/84 08/26/19 04:37 162/79 08/26/19 04:00 Mechanical Ventilator 08/26/19 04:00 40 08/26/19 04:00 97.5 88 20 162/79 (106) 96 08/26/19 04:00 82 08/26/19 03:32 72 18 40 08/26/19 01:02 155/75 08/26/19 00:00 97.9 73 20 155/67 (96) 96 08/26/19 00:00 Mechanical Ventilator 08/25/19 23:28 74 17 40 08/25/19 23:28 75 08/25/19 20:14 83 186/86 08/25/19 20:00 97.9 87 20 186/86 (119) 96 08/25/19 20:00 Mechanical Ventilator 08/25/19 20:00 40 08/25/19 19:05 82 08/25/19 19:02 83 19 40 08/25/19 17:29 182/94 08/25/19 16:00 Mechanical Ventilator 08/25/19 16:00 40 08/25/19 16:00 97.7 84 20 182/94 (123) 96 08/25/19 15:52 76 08/25/19 14:30 75 19 40 08/25/19 12:04 89 20 100 08/25/19 12:03 89 20 100 08/25/19 12:00 Mechanical Ventilator 08/25/19 12:00 40 08/25/19 11:43 68 08/25/19 11:00 80 18 40 08/25/19 10:38 174/97 08/25/19 10:09 174/97 08/25/19 08:00 40 08/25/19 08:00 Mechanical Ventilator 08/25/19 08:00 97.7 101 26 174/97 (122) 99 Intake and Output 08/25/19 08/26/19 19:00 07:00 Intake Total 1300 ml 1198 ml Balance 1300 ml 1198 ml IV Total 1050 ml 1198 ml Blood Product 250 ml # Bowel Movements 3 3 Laboratory Tests 08/25/19 18:00: Stool Occult Blood [Pending] 08/26/19 03:16: White Blood Count 23.4#*H, Red Blood Count 3.25L, Hemoglobin 9.7L, Hematocrit 28.8L, Mean Corpuscular Volume 88, Mean Corpuscular Hemoglobin 29.8, Mean Corpuscular Hemoglobin Concent 33.8, Red Cell Distribution Width 17.1H, Platelet Count 258, Mean Platelet Volume 6.9, Neutrophils (%) (Auto) , Lymphocytes (%) (Auto) , Monocytes (%) (Auto) , Eosinophils (%) (Auto) , Basophils (%) (Auto) , Neutrophils % (Manual) [Pending], Lymphocytes % (Manual) [Pending], Platelet Estimate [Pending], Platelet Morphology [Pending] Height (Feet): 5 Height (Inches): 5.00 Weight (Pounds): 165 Objective GENERAL: An ill-appearing female, obtunded. HEENT: Negative. Tracheostomy midline. LUNGS: Moderate breath sounds. CARDIAC: S1, S2. Regular rate and rhythm at present. ABDOMEN: Soft, nontender. GT EXTREMITIES: Contracted with noted chronic shoulder dislocation. Duncan Louis MD Aug 26, 2019 07:58
[2019-08-26 08:00] VITALS: BP 154/72
--- NOTE | 2019-08-26 08:16 | NUR ---
NURSE NOTES: Received report from ANGI ESQUEDA. Patient in stable condition upon assessment. No distress noted. Will continue to monitor throughout shift.
[2019-08-26] MEDS: Multivitamins W/Minerals 15 ML UDC GT SCH (09:31)
[2019-08-26] MEDS: Sodium Chloride 1gm Tab GT SCH (09:31)
[2019-08-26] MEDS: Magnesium Oxide 400mg tab GT SCH ×2 (09:31→20:50)
[2019-08-26] MEDS: Bactrim Susp 20ml NG SCH ×2 (09:31→20:49)
[2019-08-26] MEDS: Docusate 100mg/10ml Liq GT SCH (09:31)
[2019-08-26] MEDS: Bacitracin Oint UD TOPIC SCH ×2 (09:32→20:50)
[2019-08-26] MEDS: Minoxidil 2.5mg tab GT SCH (09:32)
[2019-08-26] MEDS: Labetalol 200mg tab GT SCH ×2 (09:32→20:49)
[2019-08-26] MEDS: Miralax 17gm pkt GT SCH (09:32)
[2019-08-26] MEDS: Demeclocycline 150mg tab GT SCH ×2 (09:32→20:50)
[2019-08-26] MEDS: Ascorbic Acid 500mg tab GT SCH ×2 (09:32→20:50)
[2019-08-26] MEDS: Calcium Carbonate 500mg w/Vit D 200iu tab GT SCH (09:32)
[2019-08-26] MEDS: Pantoprazole Inj IVP SCH ×2 (09:33→20:50)
[2019-08-26] MEDS: Vancomycin 1gm in D5W 275ml IVPB SCH (09:34)
--- NOTE | 2019-08-26 10:52 | NUR ---
RADIOLOGY DEPT., CHEST X-RAY DONE.-P.DYE
--- NOTE | 2019-08-26 10:58 | Diagnostic Imaging Report ---
Indication: Cough Technique: One view of the chest Comparison: none Findings: Tracheostomy remains. Peripheral infiltrate in the inferior right upper lobe is noted. Reticular and hazy airspace infiltrates are also seen in the bilateral lower lungs. There may be some pleural fluid on the left. The heart is borderline enlarged. Impression: Borderline cardiomegaly Bilateral right greater than left infiltrates versus edema. Correlate with clinical findings Possible small left pleural effusion
[2019-08-26] MEDS: Ertapenem 1 GM in NS 55 ML IVPB SCH (11:16)
--- NOTE | 2019-08-26 11:45 | NUR ---
CASE MANAGEMENT: REVIEW 08/26/2019 SI:ENCEPHALOPATHY. GTUBE MALFUNCTION . VS: T 97.5 HR 88 RR 20 B/P 162/79 STS 96% ON MECH VENT FIO2 40 LABS: WBC 23.4 NA 149 CO2 35 BUN 25 STOOL OB PENDING IS:NS @ 100 ML/HR INSULIN ASPART SUBQ Q6H BACTRIM TOP Q12H LIPITOR GT QHS LASIX GT QD MINOXIDIL GT QD NACL GT QD VANCO IV QD ERTAPENEM IV Q24H HYDRALAZINE GT Q6H DECLOMYCIN GT Q12H SDU PLAN OF CARE: CT A/P ID CONSULT WOUND CARE antibiotics broad vent support monitor GT change
--- NOTE | 2019-08-26 11:52 | NUR ---
INSURANCE REVIEW AND PROGRESS NOTE FAXED TO JIGNESH SEPULVEDA#[phone] FAX#[phone] REVIEWS/CLINICALS Addendum: 08/26/19 at 1153 by Shelly Garcia #[phone] FAX#[phone] REVIEWS/CLINICALS
[2019-08-26 12:00] VITALS: BP 153/76
--- NOTE | 2019-08-26 15:51 | Surgery Progress Note ---
Surgery Progress Note Subjective Additional Comments labs noted exam stable comfortable Objective Last 24 Hour Vital Signs Date Time Temp Pulse Resp B/P (MAP) Pulse Ox O2 Delivery O2 Flow Rate FiO2 08/26/19 15:04 90 17 40 08/26/19 13:10 153/76 08/26/19 12:00 97.9 91 22 153/76 (101) 96 08/26/19 12:00 40 08/26/19 12:00 Mechanical Ventilator 08/26/19 12:00 87 08/26/19 11:13 83 26 40 08/26/19 11:08 98 08/26/19 09:32 154/72 08/26/19 09:32 92 154/72 08/26/19 08:00 87 08/26/19 08:00 Mechanical Ventilator 08/26/19 08:00 97.5 92 26 154/72 (99) 96 08/26/19 08:00 40 08/26/19 07:03 84 21 40 08/26/19 06:18 162/84 08/26/19 04:37 162/79 08/26/19 04:00 Mechanical Ventilator 08/26/19 04:00 40 08/26/19 04:00 97.5 88 20 162/79 (106) 96 08/26/19 04:00 82 08/26/19 03:32 72 18 40 08/26/19 01:02 155/75 08/26/19 00:00 97.9 73 20 155/67 (96) 96 08/26/19 00:00 Mechanical Ventilator 08/25/19 23:28 74 17 40 08/25/19 23:28 75 08/25/19 20:14 83 186/86 08/25/19 20:00 97.9 87 20 186/86 (119) 96 08/25/19 20:00 Mechanical Ventilator 08/25/19 20:00 40 08/25/19 19:05 82 08/25/19 19:02 83 19 40 08/25/19 17:29 182/94 08/25/19 16:00 Mechanical Ventilator 08/25/19 16:00 40 08/25/19 16:00 97.7 84 20 182/94 (123) 96 08/25/19 15:52 76 I&O Intake and Output 08/25/19 08/26/19 19:00 07:00 Intake Total 1300 ml 1198 ml Balance 1300 ml 1198 ml IV Total 1050 ml 1198 ml Blood Product 250 ml # Bowel Movements 3 3 Dressing: other Wound: other Drains: other Cardiovascular: RSR Respiratory: decreased breath sounds Abdomen: soft, present bowel sounds Extremities: no cyanosis Laboratory Tests Test 08/25/19 18:00 08/26/19 03:16 Stool Occult Blood Positive (NEGATIVE) White Blood Count 23.4 K/UL (4.8-10.8) #*H Red Blood Count 3.25 M/UL (4.20-5.40) L Hemoglobin 9.7 G/DL (12.0-16.0) L Hematocrit 28.8 % (37.0-47.0) L Mean Corpuscular Volume 88 FL (80-99) Mean Corpuscular Hemoglobin 29.8 PG (27.0-31.0) Mean Corpuscular Hemoglobin Concent 33.8 G/DL (32.0-36.0) Red Cell Distribution Width 17.1 % (11.6-14.8) H Platelet Count 258 K/UL (150-450) Mean Platelet Volume 6.9 FL (6.5-10.1) Neutrophils (%) (Auto) % (45.0-75.0) Lymphocytes (%) (Auto) % (20.0-45.0) Monocytes (%) (Auto) % (1.0-10.0) Eosinophils (%) (Auto) % (0.0-3.0) Basophils (%) (Auto) % (0.0-2.0) Differential Total Cells Counted 100 Neutrophils % (Manual) 87 % (45-75) H Lymphocytes % (Manual) 5 % (20-45) L Monocytes % (Manual) 5 % (1-10) Eosinophils % (Manual) 0 % (0-3) Basophils % (Manual) 0 % (0-2) Band Neutrophils 3 % (0-8) Platelet Estimate Adequate Platelet Morphology Normal Hypochromasia 1+ Anisocytosis 1+ Plan Problems: (1) Decubitus skin ulcer Assessment & Plan: Pt presented on admission with Bilat Foot drop, contractures of both upper extremities and a reabsorbing Sacral DTPI . Base of wound is maroon without induration or fluctuance . An area of loose dry skin noted at sacrococcygeal area. Non-Blanching erythema noted along borders.5cm x (W)5.5cm. R and L Heels are boggy with non-Blanching erythema. Pt has a Tracheostomy. No evidence of skin breakdown noted under collar of trach. Tx.Plan: Apply Moisture Barrier Paste to Sacrum. Cover with Optifoam drsg. Changee very 3 days and prn. Apply Cavilon Skin Barrier to both heels. Cover each Heel with Optifoam drsg. Change every 7 days and prn. Reposition at least every 2hours or as tolerated. Off-load heels with Pillows. APM/ASIM Mattress overlay. DAILY ESTIMATED NEEDS: Needs based on Critical care/ 60kg abw 22-28 kcals/kg 0837-5543 total kcals 1.2-2 g protein/kg 72-120 g total protein 25-30 mL/kg 6936-0786 total fluid mLs NUTRITION DIAGNOSIS: * Swallowing difficulty R/T dysphagia, respiratory status as evidenced by pt is trach-vent dep, PEG dep. 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 (2) Chronic respiratory failure (3) Acute on chronic anemia (4) Shoulder dislocation (5) Ventilator dependence (6) Chronic anemia (7) GI bleed Assessment & Plan: Patient admitted with severe anemia likely source GI. Guaiac positive. No active bleeding noted. G-tube suction without blood. Plan for scope by GI. Will await findings. Transfusions H&H improved we will monitor. Coags noted stable We will be available in case of surgical intervention necessary for GI bleed unable to identify or manage with scope. Will follow with recommendations thank you for let me participate in patient's care Rocky Montenegro Aug 26, 2019 15:51
[2019-08-26 16:00] VITALS: BP 146/76
--- NOTE | 2019-08-26 16:48 | NUR ---
DISCHARGE PLANNING: NOTE CLINICALS FAXED TO [facility] IN [place] OR[facility] CONFIRMED THAT SHE RECEIVED CLINICALS FAXED. PER [facility] NEGATIVE COVID IS NEED PRIOR TO ACCEPTANCE TO FACILITY. MADE AWARE. COVID SWAB TO BE ORDERED.
--- NOTE | 2019-08-26 18:00 | NUR ---
NURSE NOTES: STAT COVID Swab and Sputum Culture collected for patient and sent to lab. Patient in stable condition and tolerating all medications and respiratory settings well. Complete bed bath done. Bed alarm on, bed in lowest, and locked position. Will continue to monitor.
--- NOTE | 2019-08-26 19:29 | NUR ---
HAND-OFF: Report given to ANGI Espinoza. Patient remains vent dependent and tolerating order as prescribed. No respiratory dress throughout shift. Droplet/Contact isolation observed. Kept clean and dry. Bed in lowest and locked position.
--- NOTE | 2019-08-26 19:30 | NUR ---
NURSE NOTES: pt report received from zeny WHITLEY. pt is alert and oriented times 1, no acute neuro abnormalities noted. pt is vented, sating at 99%, no acute resp distress noted. pt is on shelter monitor showing A FIB, no acute cardiac abnormalities noted. pt bed is low locked armed, call light within reach will follow plan of care.
[2019-08-26 20:00] VITALS: BP 136/79
[2019-08-26] MEDS: Atorvastatin 20mg tab GT SCH (20:50)
--- NOTE | 2019-08-26 21:46 | General Progress Note ---
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 leukemoid response, ? infection related to procedure - drop in H&H - etiology still not clear - ? related to the GT migration / site ulcer (OB positive), ? other intra-abdominal source - Resp failure - s/p Trach - contractures - ICB/CVA Recommendations - NPO - serial CBC - OK to use GT for meds only. No feeds - Broad spectrum abx - follow CBC - await CT abd/pelvis - free air typically seen after PEG - wound care - surgical f/u Subjective Allergies: Coded Allergies: NILAY INHIBITORS (Verified Allergy, Unknown, 12/13/18) AMLODIPINE (Verified Allergy, Unknown, 12/13/18) PENICILLINS (Verified Allergy, Unknown, 12/13/18) Uncoded Allergies: HYDROCHLORTHIAZIDE (Allergy, Unknown, 12/13/18) Subjective above noted seen this am opened eyes to examination comfortable VS noted Objective Last 24 Hour Vital Signs Date Time Temp Pulse Resp B/P (MAP) Pulse Ox O2 Delivery O2 Flow Rate FiO2 08/26/19 20:49 83 131/83 08/26/19 20:00 97.7 83 20 136/79 (98) 98 08/26/19 20:00 40 08/26/19 20:00 Mechanical Ventilator 08/26/19 19:54 88 26 40 08/26/19 18:34 146/76 08/26/19 16:01 Mechanical Ventilator 08/26/19 16:00 83 08/26/19 16:00 40 08/26/19 16:00 Mechanical Ventilator 08/26/19 16:00 97.9 89 20 146/76 (99) 99 08/26/19 15:04 90 17 40 08/26/19 13:10 153/76 08/26/19 12:00 97.9 91 22 153/76 (101) 96 08/26/19 12:00 40 08/26/19 12:00 Mechanical Ventilator 08/26/19 12:00 87 08/26/19 11:13 83 26 40 08/26/19 11:08 98 08/26/19 09:32 154/72 08/26/19 09:32 92 154/72 08/26/19 08:00 87 08/26/19 08:00 Mechanical Ventilator 08/26/19 08:00 97.5 92 26 154/72 (99) 96 08/26/19 08:00 40 08/26/19 07:03 84 21 40 08/26/19 06:18 162/84 08/26/19 04:37 162/79 08/26/19 04:00 Mechanical Ventilator 08/26/19 04:00 40 08/26/19 04:00 97.5 88 20 162/79 (106) 96 08/26/19 04:00 82 08/26/19 03:32 72 18 40 08/26/19 01:02 155/75 08/26/19 00:00 97.9 73 20 155/67 (96) 96 08/26/19 00:00 Mechanical Ventilator 08/25/19 23:28 74 17 40 08/25/19 23:28 75 Intake and Output 08/25/19 08/26/19 19:00 07:00 Intake Total 1300 ml 1198 ml Balance 1300 ml 1198 ml IV Total 1050 ml 1198 ml Blood Product 250 ml # Voids 2 # Bowel Movements 5 3 Laboratory Tests 08/26/19 03:16: White Blood Count 23.4#*H, Red Blood Count 3.25L, Hemoglobin 9.7L, Hematocrit 28.8L, Mean Corpuscular Volume 88, Mean Corpuscular Hemoglobin 29.8, Mean Corpuscular Hemoglobin Concent 33.8, Red Cell Distribution Width 17.1H, Platelet Count 258, Mean Platelet Volume 6.9, Neutrophils (%) (Auto) , Lymphocytes (%) (Auto) , Monocytes (%) (Auto) , Eosinophils (%) (Auto) , Basophils (%) (Auto) , Differential Total Cells Counted 100, Neutrophils % ( Manual) 87H, Lymphocytes % (Manual) 5L, Monocytes % (Manual) 5, Eosinophils % ( Manual) 0, Basophils % (Manual) 0, Band Neutrophils 3, Platelet Estimate Adequate, Platelet Morphology Normal, Hypochromasia 1+, Anisocytosis 1+ Height (Feet): 5 Height (Inches): 5.00 Weight (Pounds): 165 Objective debilitated AA woman NCAT (+) trach coarse BS RR abd soft ND old GT site with induration, raised ostomy margins, less erythema c/t yesterday, and some bloody serosanguinous drainage new GT site with clean edges and no significant discharge (+) contractures Abner Long MD Aug 26, 2019 21:46
[2019-08-27] VITALS: BP 118/74
[2019-08-27 04:00] VITALS: BP 130/77
--- NOTE | 2019-08-27 05:20 | NUR ---
NURSE NOTES: urine specimen sent to LAB.
[2019-08-27] MEDS: HydrALAZINE 50mg tab GT SCH ×4 (05:59→23:43)
[2019-08-27] MEDS: NovoLOG Insulin Flexpen SUBQ SCH ×4 (06:00→23:37)
--- NOTE | 2019-08-27 07:20 | NUR ---
NURSE NOTES: received patient report from derrek clark. patient is on bed asleep. on vent at prescribed rate. no acute events last night. aspiration px. afib controlled on the monitor. pending 2nd covid test. will follow plan of care.
--- NOTE | 2019-08-27 07:26 | NUR ---
HAND-OFF: Report given to ELEN WHITLEY. Pt remains stable.
[2019-08-27 08:00] VITALS: BP 161/79
[2019-08-27] MEDS: Labetalol 200mg tab GT SCH ×2 (08:37→21:05)
[2019-08-27] MEDS: Docusate 100mg/10ml Liq GT SCH (08:37)
[2019-08-27] MEDS: Bacitracin Oint UD TOPIC SCH ×2 (08:38→21:04)
[2019-08-27] MEDS: Ascorbic Acid 500mg tab GT SCH ×2 (08:38→21:04)
[2019-08-27] MEDS: Sodium Chloride 1gm Tab GT SCH (08:38)
[2019-08-27] MEDS: Calcium Carbonate 500mg w/Vit D 200iu tab GT SCH (08:39)
[2019-08-27] MEDS: Bactrim Susp 20ml NG SCH (08:39)
[2019-08-27] MEDS: Magnesium Oxide 400mg tab GT SCH ×2 (08:39→21:15)
[2019-08-27] MEDS: Multivitamins W/Minerals 15 ML UDC GT SCH (08:39)
[2019-08-27] MEDS: Pantoprazole Inj IVP SCH ×2 (08:39→21:04)
[2019-08-27] MEDS: Minoxidil 2.5mg tab GT SCH (08:40)
[2019-08-27] MEDS: Miralax 17gm pkt GT SCH (08:40)
[2019-08-27] MEDS: Demeclocycline 150mg tab GT SCH ×2 (08:41→21:04)
[2019-08-27] MEDS: Vancomycin 1gm in D5W 275ml IVPB SCH (08:45)
--- NOTE | 2019-08-27 09:04 | General Progress Note ---
Assessment/Plan Assessment/Plan: IMPRESSION: Anemia, possible GI bleed, SIADH, tracheostomy, G-tube, functional quadriplegia. possible GT site cellulitis, leukocytosis, possible sepsis PLAN ID to see antibiotics broad ct abdomen panculture vent support monitor HH GT change per gi as needed impression, plan, and exam edited and reviewed in detail care discussed with RN Subjective Allergies: Coded Allergies: NILAY INHIBITORS (Verified Allergy, Unknown, 12/13/18) AMLODIPINE (Verified Allergy, Unknown, 12/13/18) PENICILLINS (Verified Allergy, Unknown, 12/13/18) Uncoded Allergies: HYDROCHLORTHIAZIDE (Allergy, Unknown, 12/13/18) Subjective elevated wbc- repeat pending s/p EGD Objective Last 24 Hour Vital Signs Date Time Temp Pulse Resp B/P (MAP) Pulse Ox O2 Delivery O2 Flow Rate FiO2 08/27/19 08:40 156/81 08/27/19 08:37 107 161/79 08/27/19 08:00 97.9 107 18 161/79 (106) 98 08/27/19 07:16 103 26 40 08/27/19 05:59 151/69 08/27/19 04:00 98.1 95 20 130/77 (94) 99 08/27/19 04:00 105 08/27/19 04:00 40 08/27/19 04:00 Mechanical Ventilator 08/27/19 03:02 101 26 40 08/27/19 00:00 40 08/27/19 00:00 Mechanical Ventilator 08/27/19 00:00 97.5 83 20 118/74 (89) 99 08/27/19 00:00 87 08/26/19 23:29 82 25 40 08/26/19 23:16 116/80 08/26/19 20:49 83 131/83 08/26/19 20:00 85 08/26/19 20:00 97.7 83 20 136/79 (98) 98 08/26/19 20:00 40 08/26/19 20:00 Mechanical Ventilator 08/26/19 19:54 88 26 40 08/26/19 18:34 146/76 08/26/19 16:01 Mechanical Ventilator 08/26/19 16:00 83 08/26/19 16:00 40 08/26/19 16:00 Mechanical Ventilator 6/4/20 16:00 97.9 89 20 146/76 (99) 99 08/26/19 15:04 90 17 40 08/26/19 13:10 153/76 08/26/19 12:00 97.9 91 22 153/76 (101) 96 08/26/19 12:00 40 08/26/19 12:00 Mechanical Ventilator 08/26/19 12:00 87 08/26/19 11:13 83 26 40 08/26/19 11:08 98 08/26/19 09:32 154/72 08/26/19 09:32 92 154/72 Intake and Output 08/26/19 08/27/19 19:00 07:00 Intake Total 1330.000 ml 1000 ml Balance 1330.000 ml 1000 ml IV Total 1330.000 ml 1000 ml # Voids 2 # Bowel Movements 2 Height (Feet): 5 Height (Inches): 5.00 Weight (Pounds): 165 Objective GENERAL: An ill-appearing female, obtunded. HEENT: Negative. Tracheostomy midline. LUNGS: Moderate breath sounds. CARDIAC: S1, S2. Regular rate and rhythm at present. ABDOMEN: Soft, nontender. GT EXTREMITIES: Contracted with noted chronic shoulder dislocation. Duncan Louis MD Aug 27, 2019 09:04
--- NOTE | 2019-08-27 09:19 | NUR ---
RD ASSESSMENT & RECOMMENDATIONS SEE CARE ACTIVITY FOR COMPLETE ASSESSMENT DAILY ESTIMATED NEEDS: Needs based on Critical care/ 60kg abw 22-28 kcals/kg 0585-4520 total kcals 1.2-2 g protein/kg 72-120 g total protein 25-30 mL/kg 8937-2087 total fluid mLs NUTRITION DIAGNOSIS: * Swallowing difficulty R/T dysphagia, respiratory status as evidenced by pt is trach-vent dep, PEG dep, NPO at this time, s/p failed GT replacement, s/p new GT placement. 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
--- NOTE | 2019-08-27 09:41 | NUR ---
CASE MANAGEMENT: REVIEW 08/27/2019 SI:ENCEPHALOPATHY. GTUBE MALFUNCTION. COVID (-) VS: T 97.9 HR 107 RR 18 B/P 161/79 SATS 98% ON MECH VENT FIO2 40 LABS: CBC PENDING IS:NS @ 100 ML/HR INSULIN ASPART SUBQ Q6H BACTRIM TOP Q12H LIPITOR GT QHS LASIX GT QD MINOXIDIL GT QD NACL GT QD VANCO IV QD ERTAPENEM IV Q24H HYDRALAZINE GT Q6H DECLOMYCIN GT Q12H SDU PLAN OF CARE: ID CONSULT WOUND CARE antibiotics broad vent support monitor
--- NOTE | 2019-08-27 09:43 | NUR ---
DISCHARGE PLANNING: NOTE COVID NOT DETECTED UPDATED PROGRESS NOTE AND COVID RESULT FAXED TO [facility] Addendum: 08/27/19 at 1354 by Shelly Garcia CALL RECEIVED FROM ORALIA @ [facility]. CLINICALS WERE RECEIVED. BED ASSIGNMENT PENDING CLEARANCE FROM [facility] (WILL NOT OCCUR OVER THE WEEKEND) COVERING TO F/U T: [phone] [facility]
--- NOTE | 2019-08-27 09:46 | NUR ---
INSURANCE REVIEW AND PROGRESS NOTE FAXED TO #[phone] FAX#[phone] REVIEWS/CLINICALS
[2019-08-27] MEDS: Ertapenem 1 GM in NS 55 ML IVPB SCH (10:35)
[2019-08-27 11:36] LABS: HEMATOCRIT 28.2 % (37.0-47.0); HEMOGLOBIN 9.3 G/DL (12.0-16.0); MEAN CORPUSCULAR VOLUME 88 FL (80-99); PLATELET COUNT 273 K/UL (150-450); RED CELL DISTRIBUTION WIDTH 17.3 % (11.6-14.8); WHITE BLOOD COUNT 17.6 K/UL (4.8-10.8)
[2019-08-27 12:00] VITALS: BP 135/65
--- NOTE | 2019-08-27 15:31 | Surgery Progress Note ---
Surgery Progress Note Subjective Additional Comments discussed with GI new peg site okay prior peg site with granulation tissue forming no drainage noted today no signs of infection will take time to heal cont dressings Objective Last 24 Hour Vital Signs Date Time Temp Pulse Resp B/P (MAP) Pulse Ox O2 Delivery O2 Flow Rate FiO2 08/27/19 15:02 92 21 40 08/27/19 12:09 139/65 08/27/19 12:00 98.1 86 22 135/65 (88) 99 08/27/19 12:00 Mechanical Ventilator 08/27/19 12:00 40 08/27/19 12:00 84 08/27/19 11:09 88 22 40 08/27/19 09:40 99 08/27/19 08:40 156/81 08/27/19 08:37 107 161/79 08/27/19 08:00 40 08/27/19 08:00 97.9 107 18 161/79 (106) 98 08/27/19 08:00 Mechanical Ventilator 08/27/19 08:00 106 08/27/19 07:16 103 26 40 08/27/19 05:59 151/69 08/27/19 04:00 98.1 95 20 130/77 (94) 99 08/27/19 04:00 105 08/27/19 04:00 40 08/27/19 04:00 Mechanical Ventilator 08/27/19 03:02 101 26 40 08/27/19 00:00 40 08/27/19 00:00 Mechanical Ventilator 08/27/19 00:00 97.5 83 20 118/74 (89) 99 08/27/19 00:00 87 08/26/19 23:29 82 25 40 08/26/19 23:16 116/80 08/26/19 20:49 83 131/83 08/26/19 20:00 85 08/26/19 20:00 97.7 83 20 136/79 (98) 98 08/26/19 20:00 40 08/26/19 20:00 Mechanical Ventilator 08/26/19 19:54 88 26 40 08/26/19 18:34 146/76 08/26/19 16:01 Mechanical Ventilator 08/26/19 16:00 83 08/26/19 16:00 40 08/26/19 16:00 Mechanical Ventilator 08/26/19 16:00 97.9 89 20 146/76 (99) 99 I&O Intake and Output 08/26/19 08/27/19 19:00 07:00 Intake Total 1330.000 ml 1000 ml Balance 1330.000 ml 1000 ml IV Total 1330.000 ml 1000 ml # Voids 2 # Bowel Movements 2 Dressing: other Wound: other Cardiovascular: other Respiratory: decreased breath sounds, other Abdomen: soft, non-tender, present bowel sounds, other Extremities: no tenderness, no cyanosis, other Laboratory Tests Test 08/27/19 10:55 White Blood Count 17.6 K/UL (4.8-10.8) H Red Blood Count 3.20 M/UL (4.20-5.40) L Hemoglobin 9.3 G/DL (12.0-16.0) L Hematocrit 28.2 % (37.0-47.0) L Mean Corpuscular Volume 88 FL (80-99) Mean Corpuscular Hemoglobin 29.3 PG (27.0-31.0) Mean Corpuscular Hemoglobin Concent 33.1 G/DL (32.0-36.0) Red Cell Distribution Width 17.3 % (11.6-14.8) H Platelet Count 273 K/UL (150-450) Mean Platelet Volume 6.5 FL (6.5-10.1) Neutrophils (%) (Auto) % (45.0-75.0) Lymphocytes (%) (Auto) % (20.0-45.0) Monocytes (%) (Auto) % (1.0-10.0) Eosinophils (%) (Auto) % (0.0-3.0) Basophils (%) (Auto) % (0.0-2.0) Differential Total Cells Counted 100 Neutrophils % (Manual) 84 % (45-75) H Lymphocytes % (Manual) 8 % (20-45) L Monocytes % (Manual) 8 % (1-10) Eosinophils % (Manual) 0 % (0-3) Basophils % (Manual) 0 % (0-2) Band Neutrophils 0 % (0-8) Platelet Estimate Adequate Platelet Morphology Normal Hypochromasia 1+ Anisocytosis 1+ Plan Problems: (1) Decubitus skin ulcer Assessment & Plan: Pt presented on admission with Bilat Foot drop, contractures of both upper extremities and a reabsorbing Sacral DTPI . Base of wound is maroon without induration or fluctuance . An area of loose dry skin noted at sacrococcygeal area. Non-Blanching erythema noted along borders.5cm x (W)5.5cm. R and L Heels are boggy with non-Blanching erythema. Pt has a Tracheostomy. No evidence of skin breakdown noted under collar of trach. Tx.Plan: Apply Moisture Barrier Paste to Sacrum. Cover with Optifoam drsg. Changee very 3 days and prn. Apply Cavilon Skin Barrier to both heels. Cover each Heel with Optifoam drsg. Change every 7 days and prn. Reposition at least every 2hours or as tolerated. Off-load heels with Pillows. APM/ASIM Mattress overlay. DAILY ESTIMATED NEEDS: Needs based on Critical care/ 60kg abw 22-28 kcals/kg 9728-8523 total kcals 1.2-2 g protein/kg 72-120 g total protein 25-30 mL/kg 4998-3310 total fluid mLs NUTRITION DIAGNOSIS: * Swallowing difficulty R/T dysphagia, respiratory status as evidenced by pt is trach-vent dep, PEG dep. 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 (2) Chronic respiratory failure (3) Acute on chronic anemia (4) Shoulder dislocation (5) Ventilator dependence (6) Chronic anemia (7) GI bleed Assessment & Plan: Patient admitted with severe anemia likely source GI. Guaiac positive. No active bleeding noted. G-tube suction without blood. Plan for scope by GI. Will await findings. Transfusions H&H improved we will monitor. Coags noted stable We will be available in case of surgical intervention necessary for GI bleed unable to identify or manage with scope. Will follow with recommendations thank you for let me participate in patient's care Rocky Montenegro Aug 27, 2019 15:31
[2019-08-27 15:50] VITALS: BP 142/83
--- NOTE | 2019-08-27 16:15 | Consultation ---
DATE OF CONSULTATION: 08/27/2019 INFECTIOUS DISEASES CONSULTATION CONSULTING PHYSICIAN: Stefan Montaño MD. REFERRING PHYSICIAN: Duncan Louis MD. REASON FOR CONSULTATION: Pneumonia. HISTORY OF PRESENTING ILLNESS: This is an 78-year-old lady with history of respiratory failure, status post tracheostomy, stroke, intracranial bleeding who comes in with anemia. She was found to have pneumonia. Her COVID-19 test is negative. An Infectious Diseases consultation has been obtained for antibiotics. PAST MEDICAL HISTORY: 1. History of respiratory failure, status post tracheostomy. 2. Stroke. 3. Shoulder dislocation. 4. Status post G-tube placement. SOCIAL HISTORY: Unknown. FAMILY HISTORY: Unknown. REVIEW OF SYSTEMS: Unable to obtain currently. MEDICATIONS: As an inpatient, she is on IV vancomycin, ertapenem, Epogen, Bactrim, bacitracin, ascorbic acid, magnesium oxide, barium sulfate, insulin, clonidine, docusate, Lasix, minoxidil, MiraLAX, multivitamin, vitamin D, calcium, levothyroxine, Protonix, hydralazine, atorvastatin, demeclocycline, labetalol, Tylenol, milk of magnesia, Zofran, and Mylanta. ALLERGIES: 1. NILAY inhibitors. 2. Amlodipine. 3. Hydrochlorothiazide. 4. Penicillin. PHYSICAL EXAMINATION: VITAL SIGNS: Temperature of 97.9, T-max of 98.1, pulse of 107, respiratory rate 18, blood pressure 156/81, O2 saturation of 99% on FiO2 40%. HEENT: Pupils equally reactive to light and accommodation. Mouth appears clean with no thrush. NECK: Supple. No adenopathy. No JVD. CARDIOVASCULAR: Regular rate and rhythm. No murmurs. LUNGS: Clear to auscultation bilaterally. No crackles. No wheezes. ABDOMEN: Soft, nontender. No organomegaly. EXTREMITIES: No cyanosis, no clubbing, no edema. LABORATORY AND DIAGNOSTIC DATA: White count 23.4, hemoglobin 9.7, hematocrit 28.8, MCV 88, platelet count of 258 with neutrophils of 87%. Sodium 149, potassium 3.7, chloride 107, bicarb 35, BUN 25, creatinine 0.9, glucose 93, calcium 9.5. Total bilirubin 0.2, AST 20, ALT 30, alkaline phosphatase 100. Total protein 6.8, albumin 2.6. COVID-19 test is negative x1. Sputum cultures are pending. Rectal swab was positive for VRE. Nasal swab was negative for MRSA. Chest x-ray is showing bilateral right greater than left infiltrates, small left-sided pleural effusion noted. ASSESSMENT: This is an 78-year-old lady with history of respiratory failure, status post tracheostomy, stroke, intracranial bleeding, who comes in and is found to have. 1. Bilateral pneumonia. COVID-19 test is negative x1. 2. Respiratory failure, status post tracheostomy. 3. Stroke. 4. Intracranial bleeding. 5. Leukocytosis. PLAN: 1. Continue IV vancomycin and ertapenem. 2. Discontinue Bactrim. 3. Repeat COVID-19 test. 4. We will follow up cultures. 5. Continue isolation. I would like to thank Dr. Louis for this consultation. Stefan Montaño M.D. DR: ZURI JOB#: [id number] CC: Duncan Louis M.D.; Fax#: [phone]
--- NOTE | 2019-08-27 16:19 | Diagnostic Imaging Report ---
Indication: Leukocytosis after gastrostomy tube placement, unexplained anemia Technique: Spiral acquisitions obtained through the abdomen and pelvis. Enteric contrast injected through the gastrostomy No IV contrast utilized, per referring physician request.. Multiplanar reconstructions were generated. Total dose length product 691 mGycm. CTDIvol(s) 13 mGy. Dose reduction achieved using automated exposure control Comparison: None Findings: Exam is limited due to generalized edema limiting enteric contrast resolution, as well as patient's right arm being over the abdomen and creating image noise There is a gastrostomy in good position. No definite inflammatory changes are seen surrounding the gastrostomy shaft, although the presence of extensive generalized edema of the subcutaneous fat makes is difficult to exclude. There is a suggestion of an old gastrostomy tract just cephalad to this. The distal stomach and duodenum are very poorly visualized. Ingested contrast has traversed the entirety of the GI tract and reached the colon. There is a large left inguinal hernia. This is probably a direct hernia as the inferior epigastric vessels appear to be lateral to the hernia sac. No definite evidence of associated obstruction or strangulation. The hernia contains multiple loops of small bowel. The colon is diffusely stool-filled. There is colonic diverticulosis. No evidence of diverticulitis. There is a moderate to large hiatal hernia. No free or loculated intraperitoneal gas or fluid is evident. Lack of IV contrast limits assessment of the solid organs. The liver, gallbladder, bile ducts, pancreas, spleen, adrenals, kidneys are unremarkable. The bilateral common iliac arteries are ectatic but not frankly aneurysmal. The uterus is not definitely visualized. No pelvic mass or adenopathy. 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 The included lung bases demonstrate consolidation and atelectasis of much of the visualized lower lobes. The heart is enlarged. There is a small left pleural effusion. The bones demonstrate degenerative spondylosis changes and mild lumbar levoscoliotic deformity. There is a left hip prosthesis as mentioned earlier. Impression: Somewhat limited exam, as described, due to limited contrast resolution related to anasarca No definite acute abnormality. Good position of gastrostomy and no evidence of complications related to such Left inguinal hernia, probably a direct inguinal hernia, containing multiple small bowel loops.. No definite evidence of strangulation or obstruction Considerable basilar pulmonary parenchymal consolidation and atelectasis. Small left pleural effusion Cardiomegaly Colonic diverticulosis. No evidence of diverticulitis Stool-filled colon, could indicate a component of constipation. Correlate with clinical findings Moderate to large hiatal hernia Other findings as noted, including left hip arthroplasty, degenerative spondylosis, scoliosis possible prior hysterectomy The CT scanner at [facility] is accredited by the [employer] and the scans are performed using protocols designed to limit radiation exposure to as low as reasonably achievable to attain images of sufficient resolution adequate for diagnostic evaluation.
[2019-08-27] MEDS: D5 1/2NS 1,000 ML IV SCH (17:18)
--- NOTE | 2019-08-27 18:12 | Diagnostic Imaging Report ---
EXAM: US Duplex Bilateral Lower Extremities Veins CLINICAL HISTORY: DVT TECHNIQUE: Real-time duplex ultrasound scan of the bilateral lower extremity veins integrating B-mode two-dimensional vascular structure, Doppler spectral analysis, color flow Doppler imaging and compression. COMPARISON: No relevant prior studies available. FINDINGS: Right deep veins: Unremarkable. No DVT in the right common femoral, femoral, proximal deep femoral or popliteal veins. The veins demonstrate normal color flow, are normally compressible, with normal phasic flow and/or augmentation response. Right superficial veins: Unremarkable. No thrombus in the visualized right great saphenous vein. Left deep veins: Unremarkable. No DVT in the left common femoral, femoral, proximal deep femoral or popliteal veins. The veins demonstrate normal color flow, are normally compressible, with normal phasic flow and/or augmentation response. Left superficial veins: Unremarkable. No thrombus in the visualized left great saphenous vein. Soft tissues: Edema. IMPRESSION: No DVT.
--- NOTE | 2019-08-27 19:21 | NUR ---
HAND-OFF: Report given to MARY ANN WHITLEY.
--- NOTE | 2019-08-27 19:22 | NUR ---
NURSE NOTES: received pt from Yahaira WHITLEY., pt is awake and resting on the bed. Gtube site is intact, clean, and patent.trach vent in place, no SOB noted. O2sat 98%. pure wick is on the pt. pt's Right had 20G right FA 20G IV sites are clean, intact, and patent. call light within reach. bed at the lowest positioned, alarmed, and locked. will continue to monitor pt with plan of care.
--- NOTE | 2019-08-27 19:33 | NUR ---
RESPIRATORY NOTE: Received pt on AC 16, 400VT, 40%, PEEP +5. Pt is trach-dependent w/ a cuffed, Portex 7 tube. Pt alert/awake, follows commands. B/S blair. rhonchi, sxn small to moderate amounts of thick, pink-yellow to rodriguez-yellow secretions. Vent plugged into red outlet, ambubag at bedside. Pt in no apparent distress at this time. Will continue plan of care.
[2019-08-27 20:00] VITALS: BP 132/61
[2019-08-27] MEDS: Atorvastatin 20mg tab GT SCH (21:04)
[2019-08-27] MEDS: Epoetin Alfa-EPBX (NON ESRD)10,000 unit/ml vial SUBQ SCH (21:15)
--- NOTE | 2019-08-27 21:25 | General Progress Note ---
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 related to the GT migration / site ulcer (OB positive), ? other intra-abdominal source (negative CT) - Resp failure - s/p Trach - contractures - ICB/CVA Recommendations - NPO - serial CBC - OK to use GT for meds only. No feeds - Broad spectrum abx - follow CBC - wound care - surgical f/u Subjective Allergies: Coded Allergies: NILAY INHIBITORS (Verified Allergy, Unknown, 12/13/18) AMLODIPINE (Verified Allergy, Unknown, 12/13/18) PENICILLINS (Verified Allergy, Unknown, 12/13/18) Uncoded Allergies: HYDROCHLORTHIAZIDE (Allergy, Unknown, 12/13/18) Subjective above noted seen this am opened eyes to examination comfortable d/w RN d/w surgery CT noted - negative Objective Last 24 Hour Vital Signs Date Time Temp Pulse Resp B/P (MAP) Pulse Ox O2 Delivery O2 Flow Rate FiO2 08/27/19 21:05 100 132/61 08/27/19 19:30 108 23 40 08/27/19 17:09 142/83 08/27/19 16:00 Mechanical Ventilator 08/27/19 16:00 40 08/27/19 16:00 101 08/27/19 15:50 97.9 106 24 142/83 (102) 98 08/27/19 15:02 92 21 40 08/27/19 12:09 139/65 08/27/19 12:00 98.1 86 22 135/65 (88) 99 08/27/19 12:00 Mechanical Ventilator 08/27/19 12:00 40 08/27/19 12:00 84 08/27/19 11:09 88 22 40 08/27/19 09:40 99 08/27/19 08:40 156/81 08/27/19 08:37 107 161/79 08/27/19 08:00 40 08/27/19 08:00 97.9 107 18 161/79 (106) 98 08/27/19 08:00 Mechanical Ventilator 08/27/19 08:00 106 08/27/19 07:16 103 26 40 08/27/19 05:59 151/69 08/27/19 04:00 98.1 95 20 130/77 (94) 99 08/27/19 04:00 105 08/27/19 04:00 40 08/27/19 04:00 Mechanical Ventilator 08/27/19 03:02 101 26 40 08/27/19 00:00 40 08/27/19 00:00 Mechanical Ventilator 08/27/19 00:00 97.5 83 20 118/74 (89) 99 08/27/19 00:00 87 08/26/19 23:29 82 25 40 08/26/19 23:16 116/80 Intake and Output 08/26/19 08/27/19 18:59 06:59 Intake Total 1372.000 ml 1000 ml Balance 1372.000 ml 1000 ml IV Total 1372.000 ml 1000 ml # Voids 2 # Bowel Movements 2 Laboratory Tests 08/27/19 10:55: White Blood Count 17.6H, Red Blood Count 3.20L, Hemoglobin 9.3L, Hematocrit 28.2L, Mean Corpuscular Volume 88, Mean Corpuscular Hemoglobin 29.3, Mean Corpuscular Hemoglobin Concent 33.1, Red Cell Distribution Width 17.3H, Platelet Count 273, Mean Platelet Volume 6.5, Neutrophils (%) (Auto) , Lymphocytes (%) (Auto) , Monocytes (%) (Auto) , Eosinophils (%) (Auto) , Basophils (%) (Auto) , Differential Total Cells Counted 100, Neutrophils % ( Manual) 84H, Lymphocytes % (Manual) 8L, Monocytes % (Manual) 8, Eosinophils % ( Manual) 0, Basophils % (Manual) 0, Band Neutrophils 0, Platelet Estimate Adequate, Platelet Morphology Normal, Hypochromasia 1+, Anisocytosis 1+ Height (Feet): 5 Height (Inches): 5.00 Weight (Pounds): 165 Objective debilitated AA woman NCAT (+) trach coarse BS RR abd soft ND old GT site improved c/t yesterday, with less drainage new GT site with clean edges and no significant discharge (+) contractures Abner Long MD Aug 27, 2019 21:25
[2019-08-28] VITALS: BP 127/56
--- NOTE | 2019-08-28 00:05 | NUR ---
NURSE NOTES: cleaned pt, repositioned pt Q 2hrs, oral care given, provided new gown and provided new blanket. call light within reach. no Respiratory Distress. bed at the lowest position.
[2019-08-28 04:00] VITALS: BP 132/71
[2019-08-28] MEDS: NovoLOG Insulin Flexpen SUBQ SCH ×3 (05:29→17:53)
[2019-08-28] MEDS: HydrALAZINE 50mg tab GT SCH ×3 (05:30→18:00)
[2019-08-28] MEDS: D5 1/2NS 1,000 ML IV SCH ×2 (05:41→20:24)
--- NOTE | 2019-08-28 07:20 | NUR ---
HAND-OFF: Report given to To RN., pt is stable condition, endorsed plan of care.
[2019-08-28 07:23] LABS: BASOPHILS % (AUTO) 0.5 % (0.0-2.0); HEMATOCRIT 24.6 % (37.0-47.0); LYMPHOCYTES % (AUTO) 7.5 % (20.0-45.0); MEAN CORPUSCULAR VOLUME 89 FL (80-99); NEUTROPHILS % (AUTO) 82.9 % (45.0-75.0); PLATELET COUNT 231 K/UL (150-450); RED BLOOD COUNT 2.76 M/UL (4.20-5.40); RED CELL DISTRIBUTION WIDTH 16.8 % (11.6-14.8); WHITE BLOOD COUNT 11.3 K/UL (4.8-10.8)
--- NOTE | 2019-08-28 07:34 | NUR ---
Report received from Cecille WHITLEY. Patient laying. Vent setting per prescription. G-tube was running at 40cc/hr. G-tube Goal is 55 cc/hr. Will attempt to increase feeding rate as patient tolerates. IV lines noted, NS 75cc/hr running. Bed in lowest position, bed alarm on, call light within reach. Side rails up x 3, will continue to monitor.
--- NOTE | 2019-08-28 07:58 | General Progress Note ---
Assessment/Plan Assessment/Plan: IMPRESSION: Anemia, possible GI bleed, SIADH, tracheostomy, G-tube, functional quadriplegia. possible GT site cellulitis, leukocytosis, possible sepsis; pneumonia anasarca PLAN ID noted antibiotics broad ct abdomen panculture vent support monitor GT functional dc planning impression, plan, and exam edited and reviewed in detail care discussed with RN Subjective ROS Limited/Unobtainable: Yes Allergies: Coded Allergies: NILAY INHIBITORS (Verified Allergy, Unknown, 12/13/18) AMLODIPINE (Verified Allergy, Unknown, 12/13/18) PENICILLINS (Verified Allergy, Unknown, 12/13/18) Uncoded Allergies: HYDROCHLORTHIAZIDE (Allergy, Unknown, 12/13/18) Subjective elevated wbc- better gi and gs noted Objective Last 24 Hour Vital Signs Date Time Temp Pulse Resp B/P (MAP) Pulse Ox O2 Delivery O2 Flow Rate FiO2 08/28/19 05:30 130/79 08/28/19 04:00 98.8 100 18 132/71 (91) 97 08/28/19 04:00 Mechanical Ventilator 08/28/19 04:00 40 08/28/19 03:54 80 08/28/19 03:09 102 16 40 08/28/19 00:00 99.8 102 18 127/56 (79) 96 08/28/19 00:00 Mechanical Ventilator 08/27/19 23:43 127/51 08/27/19 23:23 93 08/27/19 22:47 106 16 40 08/27/19 21:05 100 132/61 08/27/19 20:00 Mechanical Ventilator 08/27/19 20:00 99.1 108 23 132/61 (84) 97 08/27/19 20:00 40 08/27/19 19:30 108 23 40 08/27/19 19:22 101 08/27/19 17:09 142/83 08/27/19 16:00 Mechanical Ventilator 08/27/19 16:00 40 08/27/19 16:00 101 08/27/19 15:50 97.9 106 24 142/83 (102) 98 08/27/19 15:02 92 21 40 08/27/19 12:09 139/65 08/27/19 12:00 98.1 86 22 135/65 (88) 99 08/27/19 12:00 Mechanical Ventilator 08/27/19 12:00 40 08/27/19 12:00 84 08/27/19 11:09 88 22 40 08/27/19 09:40 99 08/27/19 08:40 156/81 08/27/19 08:37 107 161/79 08/27/19 08:00 40 08/27/19 08:00 97.9 107 18 161/79 (106) 98 08/27/19 08:00 Mechanical Ventilator 08/27/19 08:00 106 Intake and Output 08/27/19 08/28/19 19:00 07:00 Intake Total 1422.416 ml 1168.75 ml Output Total 650 ml 100 ml Balance 772.416 ml 1068.75 ml Free Water 10 ml 60 ml IV Total 1352.416 ml 848.75 ml Tube Feeding 60 ml 260 ml Output Urine Total 650 ml 100 ml # Voids 4 # Bowel Movements 2 Laboratory Tests 08/27/19 10:55: White Blood Count 17.6H, Red Blood Count 3.20L, Hemoglobin 9.3L, Hematocrit 28.2L, Mean Corpuscular Volume 88, Mean Corpuscular Hemoglobin 29.3, Mean Corpuscular Hemoglobin Concent 33.1, Red Cell Distribution Width 17.3H, Platelet Count 273, Mean Platelet Volume 6.5, Neutrophils (%) (Auto) , Lymphocytes (%) (Auto) , Monocytes (%) (Auto) , Eosinophils (%) (Auto) , Basophils (%) (Auto) , Differential Total Cells Counted 100, Neutrophils % ( Manual) 84H, Lymphocytes % (Manual) 8L, Monocytes % (Manual) 8, Eosinophils % ( Manual) 0, Basophils % (Manual) 0, Band Neutrophils 0, Platelet Estimate Adequate, Platelet Morphology Normal, Hypochromasia 1+, Anisocytosis 1+ 08/28/19 03:40: White Blood Count 11.3H, Red Blood Count 2.76L, Hemoglobin 8.0L, Hematocrit 24.6L, Mean Corpuscular Volume 89, Mean Corpuscular Hemoglobin 29.1, Mean Corpuscular Hemoglobin Concent 32.7, Red Cell Distribution Width 16.8H, Platelet Count 231, Mean Platelet Volume 6.8, Neutrophils (%) (Auto) 82.9H, Lymphocytes (%) (Auto) 7.5L, Monocytes (%) (Auto) 8.0, Eosinophils (%) (Auto) 1.0, Basophils (%) (Auto) 0.5 Height (Feet): 5 Height (Inches): 5.00 Weight (Pounds): 165 Objective GENERAL: An ill-appearing female, obtunded. HEENT: Negative. Tracheostomy midline. LUNGS: Moderate breath sounds. CARDIAC: S1, S2. Regular rate and rhythm at present. ABDOMEN: Soft, nontender. GT EXTREMITIES: Contracted with noted chronic shoulder dislocation. Duncan Louis MD Aug 28, 2019 07:58
[2019-08-28 08:00] VITALS: BP 132/57
[2019-08-28] MEDS: Bacitracin Oint UD TOPIC SCH ×2 (09:17→20:24)
[2019-08-28] MEDS: Ascorbic Acid 500mg tab GT SCH ×2 (09:17→20:25)
[2019-08-28] MEDS: Sodium Chloride 1gm Tab GT SCH (09:17)
[2019-08-28] MEDS: Magnesium Oxide 400mg tab GT SCH ×2 (09:18→20:25)
[2019-08-28] MEDS: Miralax 17gm pkt GT SCH (09:18)
[2019-08-28] MEDS: Labetalol 200mg tab GT SCH ×2 (09:18→20:25)
[2019-08-28] MEDS: Minoxidil 2.5mg tab GT SCH (09:18)
[2019-08-28] MEDS: Calcium Carbonate 500mg w/Vit D 200iu tab GT SCH (09:18)
[2019-08-28] MEDS: Multivitamins W/Minerals 15 ML UDC GT SCH (09:19)
[2019-08-28] MEDS: Docusate 100mg/10ml Liq GT SCH (09:19)
[2019-08-28] MEDS: Pantoprazole Inj IVP SCH ×2 (09:19→20:24)
[2019-08-28] MEDS: Demeclocycline 150mg tab GT SCH ×2 (09:19→20:25)
[2019-08-28] MEDS: Ertapenem 1 GM in NS 55 ML IVPB SCH (09:20)
[2019-08-28] MEDS: Vancomycin 1gm in D5W 275ml IVPB SCH (09:21)
[2019-08-28] MEDS ORDERED: D5 1/2NS 1000ml IV ONE ×2 (10:08→10:09)
[2019-08-28] MEDS ORDERED: NS 275ml ONE (10:11)
[2019-08-28] MEDS ORDERED: Tubing Blood Filter IV ONE (10:11)
[2019-08-28] MEDS ORDERED: NS Irrig 1000ml ONE (10:11)
[2019-08-28] MEDS ORDERED: Tubing IV Secondary IV ONE (10:11)
--- NOTE | 2019-08-28 10:40 | Infectious Diseases Prog Note ---
Assessment/Plan Assessment/Plan antibiotics : vancomycin iv, ertapenem A 1. gram negative pneumonia 2. COVID 19 test negative x 1 3. Respiratory failure, status post tracheostomy. 4. Stroke. 5. Intracranial bleeding. 6. Leukocytosis improving P 1. continue ertapenem 2. d/c iv vancomycin 3. will follow up cultures Subjective ROS Limited/Unobtainable: Yes Allergies: Coded Allergies: NILAY INHIBITORS (Verified Allergy, Unknown, 12/13/18) AMLODIPINE (Verified Allergy, Unknown, 12/13/18) PENICILLINS (Verified Allergy, Unknown, 12/13/18) Uncoded Allergies: HYDROCHLORTHIAZIDE (Allergy, Unknown, 12/13/18) Objective Vital Signs Last 24 Hour Vital Signs Date Time Temp Pulse Resp B/P (MAP) Pulse Ox O2 Delivery O2 Flow Rate FiO2 08/28/19 09:18 132/57 08/28/19 09:18 94 132/57 08/28/19 08:37 94 08/28/19 08:00 98.8 94 18 132/57 (82) 99 08/28/19 08:00 40 08/28/19 08:00 Mechanical Ventilator 08/28/19 07:07 97 22 40 08/28/19 05:30 130/79 08/28/19 04:00 98.8 100 18 132/71 (91) 97 08/28/19 04:00 Mechanical Ventilator 08/28/19 04:00 40 08/28/19 03:54 80 08/28/19 03:09 102 16 40 08/28/19 00:00 99.8 102 18 127/56 (79) 96 08/28/19 00:00 Mechanical Ventilator 08/27/19 23:43 127/51 08/27/19 23:23 93 08/27/19 22:47 106 16 40 08/27/19 21:05 100 132/61 08/27/19 20:00 Mechanical Ventilator 08/27/19 20:00 99.1 108 23 132/61 (84) 97 08/27/19 20:00 40 08/27/19 19:30 108 23 40 08/27/19 19:22 101 08/27/19 17:09 142/83 08/27/19 16:00 Mechanical Ventilator 08/27/19 16:00 40 08/27/19 16:00 101 08/27/19 15:50 97.9 106 24 142/83 (102) 98 08/27/19 15:02 92 21 40 08/27/19 12:09 139/65 08/27/19 12:00 98.1 86 22 135/65 (88) 99 08/27/19 12:00 Mechanical Ventilator 08/27/19 12:00 40 08/27/19 12:00 84 08/27/19 11:09 88 22 40 Height (Feet): 5 Height (Inches): 5.00 Weight (Pounds): 165 HEENT: status post trach Cardiovascular: normal rate, regular rhythm, no gallop/murmur Abdomen: soft, non tender, other - GT Extremities: other - + edema Microbiology Date/Time Source Procedure Growth Status 08/26/19 06:01 Blood Blood Culture - Preliminary NO GROWTH AFTER 24 HOURS Resulted 08/26/19 05:45 Blood Blood Culture - Preliminary NO GROWTH AFTER 24 HOURS Resulted 08/26/19 18:06 Nasopharynx Coronavirus COVID-19 PCR (BENIGNO) - Final Complete 08/26/19 18:00 Sputum Expectorated Gram Stain - Final Resulted 08/26/19 18:00 Sputum Culture - Preliminary Gram Negative Bacillus 1 Gram Negative Bacillus 2 Resulted 08/26/19 06:00 External Cath Urine Culture - Preliminary Mixed Urogenital Contaminants Resulted Laboratory Tests Test 08/27/19 10:55 08/28/19 03:40 White Blood Count 17.6 K/UL (4.8-10.8) H 11.3 K/UL (4.8-10.8) H Red Blood Count 3.20 M/UL (4.20-5.40) L 2.76 M/UL (4.20-5.40) L Hemoglobin 9.3 G/DL (12.0-16.0) L 8.0 G/DL (12.0-16.0) L Hematocrit 28.2 % (37.0-47.0) L 24.6 % (37.0-47.0) L Mean Corpuscular Volume 88 FL (80-99) 89 FL (80-99) Mean Corpuscular Hemoglobin 29.3 PG (27.0-31.0) 29.1 PG (27.0-31.0) Mean Corpuscular Hemoglobin Concent 33.1 G/DL (32.0-36.0) 32.7 G/DL (32.0-36.0) Red Cell Distribution Width 17.3 % (11.6-14.8) H 16.8 % (11.6-14.8) H Platelet Count 273 K/UL (150-450) 231 K/UL (150-450) Mean Platelet Volume 6.5 FL (6.5-10.1) 6.8 FL (6.5-10.1) Neutrophils (%) (Auto) % (45.0-75.0) 82.9 % (45.0-75.0) H Lymphocytes (%) (Auto) % (20.0-45.0) 7.5 % (20.0-45.0) L Monocytes (%) (Auto) % (1.0-10.0) 8.0 % (1.0-10.0) Eosinophils (%) (Auto) % (0.0-3.0) 1.0 % (0.0-3.0) Basophils (%) (Auto) % (0.0-2.0) 0.5 % (0.0-2.0) Differential Total Cells Counted 100 Neutrophils % (Manual) 84 % (45-75) H Lymphocytes % (Manual) 8 % (20-45) L Monocytes % (Manual) 8 % (1-10) Eosinophils % (Manual) 0 % (0-3) Basophils % (Manual) 0 % (0-2) Band Neutrophils 0 % (0-8) Platelet Estimate Adequate Platelet Morphology Normal Hypochromasia 1+ Anisocytosis 1+ Current Medications Medications (Trade) Dose Ordered Sig/Jane Route PRN Reason Start Time Stop Time Status Last Admin Dose Admin Acetaminophen (Tylenol) 650 mg Q4H PRN GT Mild Pain (Pain Scale 1-3) 08/24/19 17:30 09/23/19 17:29 Acetaminophen (Tylenol) 650 mg Q4H PRN GT Temp >100.5 08/24/19 17:45 09/23/19 17:44 Al Hydroxide/Mg Hydroxide (Mylanta) 30 ml Q4H PRN GT STOMACH UPSET 08/24/19 17:30 09/23/19 17:29 Ascorbic Acid (Vitamin C) 500 mg EVERY 12 HOURS GT 08/25/19 21:00 09/23/19 17:59 08/28/19 09:17 Atorvastatin Calcium (Lipitor) 20 mg BEDTIME GT 08/24/19 21:00 11/22/19 20:59 08/27/19 21:04 Bacitracin (Bacitracin) 1 applic EVERY 12 HOURS TOPIC 08/25/19 21:00 09/03/19 21:01 08/28/19 09:17 Calcium/Vitamin D (OsCal D) 1 tab DAILY GT 08/25/19 09:00 11/23/19 08:59 08/28/19 09:18 Clonidine HCl (Catapres TTS-2) 1 patch QWEEK TDERMAL 08/25/19 10:00 11/23/19 09:59 08/25/19 10:38 Clonidine HCl (Catapres tab) 0.2 mg Q4H PRN GT For High Blood Pressure 08/24/19 17:45 11/22/19 17:44 Demeclocycline HCl (Declomycin) 150 mg Q12HR GT 08/24/19 21:00 08/31/19 20:59 08/28/19 09:19 Dextrose (Dextrose 50%) 25 ml Q30M PRN IV Hypoglycemia 08/24/19 19:15 11/22/19 19:14 Dextrose (Dextrose 50%) 50 ml Q30M PRN IV Hypoglycemia 08/24/19 19:15 11/22/19 19:14 Dextrose/Sodium Chloride 1,000 ml @ 75 mls/hr [id number] IV 08/27/19 17:00 09/26/19 16:59 08/28/19 05:41 Docusate Sodium (Colace) 100 mg DAILY GT 08/25/19 09:00 09/24/19 08:59 08/28/19 09:19 Epoetin Mehran (Epoetin Mehran-EPBX(NON ESRD)) 10,000 unit FRI-FRI-FRI SUBQ 08/25/19 21:00 11/23/19 20:59 08/27/19 21:15 Ertapenem 1 gm/ Sodium Chloride 55 ml @ 110 mls/hr Q24H IVPB 08/26/19 10:00 08/31/19 09:59 08/28/19 09:20 Furosemide (Lasix) 20 mg DAILY GT 08/25/19 09:00 09/24/19 08:59 08/28/19 09:17 Hydralazine HCl (Apresoline) 10 mg Q4H PRN IV For High Blood Pressure 08/25/19 03:00 11/23/19 02:59 08/26/19 04:37 Hydralazine HCl (Apresoline) 100 mg Q6HR GT 08/24/19 18:00 11/22/19 17:59 08/28/19 05:30 Insulin Aspart (NovoLOG) EVERY 6 HOURS SUBQ 08/25/19 12:00 11/22/19 20:59 Labetalol HCl (Normodyne) 200 mg Q12HR GT 08/24/19 21:00 09/23/19 20:59 08/28/19 09:18 Levothyroxine Sodium (Synthroid) 75 mcg DAILY@0630 GT 08/25/19 06:30 09/24/19 06:29 08/28/19 05:31 Levothyroxine Sodium (Synthroid) 100 mcg DAILY@30 GT 08/25/19 06:30 09/24/19 06:29 08/28/19 05:31 Magnesium Hydroxide (Mom) 30 ml DAILYPRN PRN GT Constipation 08/24/19 17:45 09/23/19 17:44 Magnesium Oxide (Mag-Ox 400mg) 400 mg EVERY 12 HOURS GT 08/25/19 21:00 09/23/19 17:59 08/28/19 09:18 Minoxidil (Loniten) 2.5 mg DAILY GT 08/25/19 09:00 11/23/19 08:59 08/28/19 09:18 Multivitamins (Multivitamins W/ Minerals 15ml Liquid) 15 ml DAILY GT 08/25/19 09:00 09/24/19 08:59 08/28/19 09:19 Ondansetron HCl (Zofran) 4 mg Q6H PRN IVP Nausea & Vomiting 08/24/19 17:45 09/23/19 17:44 Pantoprazole (Protonix) 40 mg EVERY 12 HOURS IVP 08/25/19 03:15 09/24/19 03:14 08/28/19 09:19 Polyethylene Glycol (Miralax) 17 gm DAILY GT 08/25/19 09:00 09/24/19 08:59 08/28/19 09:18 Sodium Chloride (NaCl) 1 gm DAILY GT 08/25/19 09:00 09/24/19 08:59 08/28/19 09:17 Sodium Phosphate (Fleet's Sodium Phosl Enema) 133 ml DAILYPRN PRN RECTAL constipation 08/24/19 18:15 09/23/19 17:44 Vancomycin HCl (Vanco pharmacy to dose) 1 ea DAILY MISC 08/26/19 09:00 09/25/19 08:59 08/27/19 08:56 Vancomycin HCl 1 gm/Dextrose 275 ml @ 183.708 mls/hr Q24H IVPB 08/26/19 09:00 08/31/19 08:59 08/28/19 09:21 Stefan Montaño MD Aug 28, 2019 10:40
[2019-08-28 12:00] VITALS: BP 103/45
--- NOTE | 2019-08-28 12:09 | NUR ---
CASE MANAGEMENT:REVIEW SI;GT SITE CELLULITIS. GT MALFUNCTION. ENCEPHALOPATHY. PNEUMONIA. ANASARCA. 99.8 102 19 103/45 99% TRACH/VENT AC 16 TV 400 PEEP 5 FIO2 @ 40% WBC 11.3 H/H 8.0/24.6 IS;IVF D5W @ 75 ML/HR ERTAPENEM IV Q24 HR VANCOMYCIN IV Q24 HR VIT C GT BID MAG-OX GT TID INSULIN NOVOLOG Q6 HR FUROSEMIDE GT WD PROTONIX IV Q12 HRS DEMECLOCYCLINE GT Q12 HR LABETALOL GT Q12 HR LINDA STATUS DCP;[facility]
--- NOTE | 2019-08-28 13:33 | NUR ---
NURSE NOTES: Called and left a message to Dr. 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 Awaiting for the response.
--- NOTE | 2019-08-28 13:35 | NUR ---
NURSE NOTES: Received a call back from Dr. Louis. Dr. Terry is on board.
--- NOTE | 2019-08-28 13:47 | Surgery Progress Note ---
Surgery Progress Note Subjective Symptoms: tolerating diet, voiding well, passing flatus Objective Last 24 Hour Vital Signs Date Time Temp Pulse Resp B/P (MAP) Pulse Ox O2 Delivery O2 Flow Rate FiO2 08/28/19 12:30 65 08/28/19 12:00 40 08/28/19 12:00 98.2 80 20 103/45 (64) 99 08/28/19 12:00 103/45 08/28/19 12:00 Mechanical Ventilator 08/28/19 10:34 71 08/28/19 09:18 132/57 08/28/19 09:18 94 132/57 08/28/19 08:37 94 08/28/19 08:00 98.8 94 18 132/57 (82) 99 08/28/19 08:00 40 08/28/19 08:00 Mechanical Ventilator 08/28/19 07:07 97 22 40 08/28/19 05:30 130/79 08/28/19 04:00 98.8 100 18 132/71 (91) 97 08/28/19 04:00 Mechanical Ventilator 08/28/19 04:00 40 08/28/19 03:54 80 08/28/19 03:09 102 16 40 08/28/19 00:00 99.8 102 18 127/56 (79) 96 08/28/19 00:00 Mechanical Ventilator 08/27/19 23:43 127/51 08/27/19 23:23 93 08/27/19 22:47 106 16 40 08/27/19 21:05 100 132/61 08/27/19 20:00 Mechanical Ventilator 08/27/19 20:00 99.1 108 23 132/61 (84) 97 08/27/19 20:00 40 08/27/19 19:30 108 23 40 08/27/19 19:22 101 08/27/19 17:09 142/83 08/27/19 16:00 Mechanical Ventilator 08/27/19 16:00 40 08/27/19 16:00 101 08/27/19 15:50 97.9 106 24 142/83 (102) 98 08/27/19 15:02 92 21 40 I&O Intake and Output 08/27/19 08/28/19 19:00 07:00 Intake Total 1422.416 ml 1168.75 ml Output Total 650 ml 100 ml Balance 772.416 ml 1068.75 ml Free Water 10 ml 60 ml IV Total 1352.416 ml 848.75 ml Tube Feeding 60 ml 260 ml Output Urine Total 650 ml 100 ml # Voids 4 # Bowel Movements 2 Dressing: saturated Cardiovascular: RSR Respiratory: decreased breath sounds Abdomen: soft, non-tender, present bowel sounds, other, non-distended Extremities: no cyanosis, other Laboratory Tests Test 08/28/19 03:40 White Blood Count 11.3 K/UL (4.8-10.8) H Red Blood Count 2.76 M/UL (4.20-5.40) L Hemoglobin 8.0 G/DL (12.0-16.0) L Hematocrit 24.6 % (37.0-47.0) L Mean Corpuscular Volume 89 FL (80-99) Mean Corpuscular Hemoglobin 29.1 PG (27.0-31.0) Mean Corpuscular Hemoglobin Concent 32.7 G/DL (32.0-36.0) Red Cell Distribution Width 16.8 % (11.6-14.8) H Platelet Count 231 K/UL (150-450) Mean Platelet Volume 6.8 FL (6.5-10.1) Neutrophils (%) (Auto) 82.9 % (45.0-75.0) H Lymphocytes (%) (Auto) 7.5 % (20.0-45.0) L Monocytes (%) (Auto) 8.0 % (1.0-10.0) Eosinophils (%) (Auto) 1.0 % (0.0-3.0) Basophils (%) (Auto) 0.5 % (0.0-2.0) Plan Problems: (1) Decubitus skin ulcer Assessment & Plan: Pt presented on admission with Bilat Foot drop, contractures of both upper extremities and a reabsorbing Sacral DTPI . Base of wound is maroon without induration or fluctuance . An area of loose dry skin noted at sacrococcygeal area. Non-Blanching erythema noted along borders.5cm x (W)5.5cm. R and L Heels are boggy with non-Blanching erythema. Pt has a Tracheostomy. No evidence of skin breakdown noted under collar of trach. Tx.Plan: Apply Moisture Barrier Paste to Sacrum. Cover with Optifoam drsg. Changee very 3 days and prn. Apply Cavilon Skin Barrier to both heels. Cover each Heel with Optifoam drsg. Change every 7 days and prn. Reposition at least every 2hours or as tolerated. Off-load heels with Pillows. APM/ASIM Mattress overlay. DAILY ESTIMATED NEEDS: Needs based on Critical care/ 60kg abw 22-28 kcals/kg 6389-4999 total kcals 1.2-2 g protein/kg 72-120 g total protein 25-30 mL/kg 8743-9453 total fluid mLs NUTRITION DIAGNOSIS: * Swallowing difficulty R/T dysphagia, respiratory status as evidenced by pt is trach-vent dep, PEG dep. 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 (2) Chronic respiratory failure (3) Acute on chronic anemia (4) Shoulder dislocation (5) Ventilator dependence (6) Chronic anemia (7) GI bleed Assessment & Plan: Patient admitted with severe anemia likely source GI. Guaiac positive. No active bleeding noted. G-tube suction without blood. Plan for scope by GI. Will await findings. Transfusions H&H improved we will monitor. Coags noted stable We will be available in case of surgical intervention necessary for GI bleed unable to identify or manage with scope. Will follow with recommendations thank you for let me participate in patient's care Rocky Montenegro Aug 28, 2019 13:47
[2019-08-28 16:00] VITALS: BP 93/49
--- NOTE | 2019-08-28 19:39 | NUR ---
HAND-OFF: Report given to ANGI Oden.
--- NOTE | 2019-08-28 19:40 | NUR ---
NURSE NOTES: received pt from To RN. and Roselyn RN., pt is awake and resting on the bed. Gtube site is intact, clean, and patent.trach vent in place, no SOB noted. O2sat 97%. pure wick is on the pt.BP 105/66 pt's Right had 20G right FA 20G IV sites are clean, intact, and patent. call light within reach. bed at the lowest positioned, alarmed, and locked. will continue to monitor pt with plan of care.
[2019-08-28 20:00] VITALS: BP 113/53
[2019-08-28] MEDS: Atorvastatin 20mg tab GT SCH (20:25)
--- NOTE | 2019-08-28 21:23 | General Progress Note ---
Assessment/Plan Assessment/Plan: jAssessment - s/p new PEG yesterday, after failed GT replacement - WBC improving - drop in H&H - etiology still not clear - ? related to the GT migration / site ulcer (OB positive), ? other intra-abdominal source (negative CT) - Resp failure - s/p Trach - contractures - ICB/CVA Recommendations - Continue TF - Broad spectrum abx - follow CBC - wound care - surgical f/u Subjective Allergies: Coded Allergies: NILAY INHIBITORS (Verified Allergy, Unknown, 12/13/18) AMLODIPINE (Verified Allergy, Unknown, 12/13/18) PENICILLINS (Verified Allergy, Unknown, 12/13/18) Uncoded Allergies: HYDROCHLORTHIAZIDE (Allergy, Unknown, 12/13/18) Subjective above noted seen this afternoon NAD tolerating feeds Objective Last 24 Hour Vital Signs Date Time Temp Pulse Resp B/P (MAP) Pulse Ox O2 Delivery O2 Flow Rate FiO2 08/28/19 20:25 88 113/53 08/28/19 20:00 98.6 88 22 113/53 (73) 99 08/28/19 19:31 87 08/28/19 19:10 81 18 40 08/28/19 18:00 93/49 08/28/19 16:00 70 08/28/19 16:00 Mechanical Ventilator 08/28/19 16:00 40 08/28/19 16:00 99.0 82 19 93/49 (64) 99 08/28/19 15:08 68 21 40 08/28/19 12:30 65 08/28/19 12:00 40 08/28/19 12:00 98.2 80 20 103/45 (64) 99 08/28/19 12:00 103/45 08/28/19 12:00 Mechanical Ventilator 08/28/19 10:42 99 08/28/19 10:34 71 08/28/19 09:18 132/57 08/28/19 09:18 94 132/57 08/28/19 08:37 94 08/28/19 08:00 98.8 94 18 132/57 (82) 99 08/28/19 08:00 40 08/28/19 08:00 Mechanical Ventilator 08/28/19 07:07 97 22 40 08/28/19 05:30 130/79 08/28/19 04:00 98.8 100 18 132/71 (91) 97 08/28/19 04:00 Mechanical Ventilator 08/28/19 04:00 40 08/28/19 03:54 80 08/28/19 03:09 102 16 40 08/28/19 00:00 99.8 102 18 127/56 (79) 96 08/28/19 00:00 Mechanical Ventilator 08/27/19 23:43 127/51 08/27/19 23:23 93 08/27/19 22:47 106 16 40 Intake and Output 08/27/19 08/28/19 19:00 07:00 Intake Total 1422.416 ml 1208.75 ml Output Total 650 ml 100 ml Balance 772.416 ml 1108.75 ml Free Water 10 ml 60 ml IV Total 1352.416 ml 848.75 ml Tube Feeding 60 ml 300 ml Output Urine Total 650 ml 100 ml # Voids 4 # Bowel Movements 2 Laboratory Tests 08/28/19 03:40: White Blood Count 11.3H, Red Blood Count 2.76L, Hemoglobin 8.0L, Hematocrit 24.6L, Mean Corpuscular Volume 89, Mean Corpuscular Hemoglobin 29.1, Mean Corpuscular Hemoglobin Concent 32.7, Red Cell Distribution Width 16.8H, Platelet Count 231, Mean Platelet Volume 6.8, Neutrophils (%) (Auto) 82.9H, Lymphocytes (%) (Auto) 7.5L, Monocytes (%) (Auto) 8.0, Eosinophils (%) (Auto) 1.0, Basophils (%) (Auto) 0.5 Height (Feet): 5 Height (Inches): 5.00 Weight (Pounds): 165 Objective debilitated AA woman NCAT (+) trach coarse BS RR abd soft ND old GT site improved c/t yesterday, with less drainage and erythema new GT site with clean edges and no significant discharge (+) contractures Abner Long MD Aug 28, 2019 21:23
[2019-08-29] VITALS (7 sets, daily range): BP systolic 111–147; BP diastolic 58–91
[2019-08-29] MEDS: HydrALAZINE 50mg tab GT SCH ×5 (00:59→23:50)
--- NOTE | 2019-08-29 05:30 | Consultation ---
DATE OF CONSULTATION: 08/28/2019 CARDIOLOGY CONSULTATION CONSULTING PHYSICIAN: Srinivasan Terry MD. REQUESTING PHYSICIAN: Duncan Louis MD. REASON FOR CONSULTATION: Second-degree AV block. HISTORY OF PRESENT ILLNESS: The patient is a debilitated 78-year-old female with history of intracranial bleed, cerebrovascular accident, quadriplegia, and ventilator-dependent respiratory failure. She was admitted to the hospital several days ago with anemia. She was noted to have G-tube malfunction and failed replacement at the bedside. As such, she underwent new endoscopic PEG placement yesterday. The patient has required transfusion as well and the etiology of her blood loss is still unclear, may have been related to G-tube migration and associated ulcer. Today, the patient had episodes of second-degree AV block. I have reviewed the strips. The patient is noncommunicative, however, she was hemodynamically stable during this period. She had episodes of second-degree type 1 AV block (Wenckebach conduction). ALLERGIES: Include amlodipine, angiotensin-converting enzyme inhibitors, and penicillin as well as hydrochlorothiazide. CURRENT MEDICATIONS: Reviewed and reconciled. PAST MEDICAL HISTORY: As outlined above. SOCIAL HISTORY: Otherwise unknown. PHYSICAL EXAMINATION: GENERAL: Obtunded, on ventilator support via trach. VITAL SIGNS: Blood pressure 132/57, heart rate 71, respiratory rate 18. LUNGS: Bilateral breath sounds. No rales. CARDIAC: Regular rhythm and rate. Normal S1, S2. ABDOMEN: Soft. EXTREMITIES: No edema. SKIN: G-tube intact. LABORATORY DATA: White count 11, hemoglobin 8. No chemistry panel available. IMPRESSION: 1. Asymptomatic transient second-degree type 1 AV block. This is likely due to increased vagal tone in the setting of recent GI procedure and G-tube dysfunction. 2. Anemia. 3. Ventilator-dependent respiratory failure. 4. Cerebrovascular disease with chronic encephalopathy. PLAN: 1. Continue cardiac monitoring. No indication for pacemaker. 2. Check thyroid panel. 3. Recheck electrolytes. 4. Avoid drugs with negative chronotropic potential. 5. Reassess use of demeclocycline. 6. Discontinue furosemide for now as the patient is on IV fluids. 7. Discontinue clonidine. 8. May consider tapering off labetalol dosing. Srinivasan Terry M.D. DR: Benja JOB#: [id number] CC:
[2019-08-29] MEDS: NovoLOG Insulin Flexpen SUBQ SCH ×5 (06:00→23:49)
--- NOTE | 2019-08-29 06:00 | NUR ---
NURSE NOTES: cleaned pt, provided new gown, provided oral care q 2hrs. repositioned Q 2hrs. no SOB noted. call light within reach. continue to monitor pt with plan of care.
--- NOTE | 2019-08-29 07:15 | NUR ---
NURSE NOTES: Received report from ANGI Juarez. Patient alert and responsive to verbal and tactile stimuli upon assessment. Patient tolerating Vent settings as prescribed. Patient running feeding at 55cc. Bed in lowest and locked position. Will continue to monitor.
--- NOTE | 2019-08-29 07:23 | NUR ---
HAND-OFF: Report given to To RN., pt is stable condition, endorsed plan of care.
--- NOTE | 2019-08-29 07:27 | NUR ---
NURSE NOTES: left voice mail to Dr. Montaño regarding ESLB Sputum positive result. will wait for call back.
--- NOTE | 2019-08-29 08:53 | General Progress Note ---
Assessment/Plan Assessment/Plan: IMPRESSION: Anemia, possible GI bleed, SIADH, tracheostomy, G-tube, functional quadriplegia. possible GT site cellulitis, leukocytosis, possible sepsis; pneumonia anasarca PLAN ID noted antibiotics broad vent support monitor GT functional dc planning to snf impression, plan, and exam edited and reviewed in detail care discussed with RN Subjective ROS Limited/Unobtainable: Yes Allergies: Coded Allergies: NILAY INHIBITORS (Verified Allergy, Unknown, 12/13/18) AMLODIPINE (Verified Allergy, Unknown, 12/13/18) PENICILLINS (Verified Allergy, Unknown, 12/13/18) Uncoded Allergies: HYDROCHLORTHIAZIDE (Allergy, Unknown, 12/13/18) Subjective labs and vent noted gi and gs noted Objective Last 24 Hour Vital Signs Date Time Temp Pulse Resp B/P (MAP) Pulse Ox O2 Delivery O2 Flow Rate FiO2 08/29/19 07:42 77 28 40 08/29/19 05:59 150/78 08/29/19 04:00 79 08/29/19 04:00 40 08/29/19 04:00 98.4 100 22 126/91 (103) 100 08/29/19 04:00 Mechanical Ventilator 08/29/19 03:20 85 20 40 08/29/19 00:59 127/60 08/29/19 00:00 90 08/29/19 00:00 99.1 94 22 117/59 (78) 99 08/29/19 00:00 Mechanical Ventilator 08/28/19 23:40 87 21 40 08/28/19 20:25 88 113/53 08/28/19 20:00 98.6 88 22 113/53 (73) 99 08/28/19 20:00 Mechanical Ventilator 08/28/19 20:00 40 08/28/19 19:31 87 08/28/19 19:10 81 18 40 08/28/19 18:00 93/49 08/28/19 16:00 70 08/28/19 16:00 Mechanical Ventilator 08/28/19 16:00 40 08/28/19 16:00 99.0 82 19 93/49 (64) 99 08/28/19 15:08 68 21 40 08/28/19 12:30 65 08/28/19 12:00 40 08/28/19 12:00 98.2 80 20 103/45 (64) 99 08/28/19 12:00 103/45 08/28/19 12:00 Mechanical Ventilator 08/28/19 10:42 99 08/28/19 10:34 71 08/28/19 09:18 132/57 08/28/19 09:18 94 132/57 Intake and Output 08/28/19 08/29/19 19:00 07:00 Intake Total 1270 ml 1310 ml Output Total 200 ml Balance 1270 ml 1110 ml Free Water 100 ml 100 ml IV Total 675 ml 750 ml Tube Feeding 495 ml 460 ml Output Urine Total 200 ml # Voids 3 # Bowel Movements 1 2 Height (Feet): 5 Height (Inches): 5.00 Weight (Pounds): 165 Objective GENERAL: An ill-appearing female, obtunded. HEENT: Negative. Tracheostomy midline. LUNGS: Moderate breath sounds. CARDIAC: S1, S2. Regular rate and rhythm at present. ABDOMEN: Soft, nontender. GT EXTREMITIES: Contracted with noted chronic shoulder dislocation. Duncan Louis MD Aug 29, 2019 08:53
[2019-08-29] MEDS: Miralax 17gm pkt GT SCH (09:00)
[2019-08-29] MEDS: Docusate 100mg/10ml Liq GT SCH (09:00)
[2019-08-29] MEDS: Pantoprazole Inj IVP SCH ×2 (09:51→21:08)
[2019-08-29] MEDS: Calcium Carbonate 500mg w/Vit D 200iu tab GT SCH (09:51)
[2019-08-29] MEDS: Sodium Chloride 1gm Tab GT SCH (09:51)
[2019-08-29] MEDS: Ascorbic Acid 500mg tab GT SCH ×2 (09:51→21:07)
[2019-08-29] MEDS: Demeclocycline 150mg tab GT SCH ×2 (09:52→21:08)
[2019-08-29] MEDS: Minoxidil 2.5mg tab GT SCH (09:52)
[2019-08-29] MEDS: Multivitamins W/Minerals 15 ML UDC GT SCH (09:53)
[2019-08-29] MEDS: Magnesium Oxide 400mg tab GT SCH ×2 (09:53→21:08)
[2019-08-29] MEDS: Labetalol 200mg tab GT SCH ×2 (09:54→21:08)
[2019-08-29] MEDS: Bacitracin Oint UD TOPIC SCH ×2 (09:55→21:07)
[2019-08-29] MEDS: Ertapenem 1 GM in NS 55 ML IVPB SCH (09:57)
[2019-08-29] MEDS: D5 1/2NS 1,000 ML IV SCH ×2 (09:59→21:23)
[2019-08-29 10:20] LABS: BASOPHILS % (AUTO) 0.9 % (0.0-2.0); EOSINOPHILS % (AUTO) 2.9 % (0.0-3.0); HEMATOCRIT 28.8 % (37.0-47.0); HEMOGLOBIN 9.4 G/DL (12.0-16.0); LYMPHOCYTES % (AUTO) 5.3 % (20.0-45.0); MEAN CORPUSCULAR VOLUME 89 FL (80-99); MONOCYTES % (AUTO) 9.6 % (1.0-10.0); NEUTROPHILS % (AUTO) 81.3 % (45.0-75.0); PLATELET COUNT 266 K/UL (150-450); RED BLOOD COUNT 3.24 M/UL (4.20-5.40); RED CELL DISTRIBUTION WIDTH 16.5 % (11.6-14.8); WHITE BLOOD COUNT 11.3 K/UL (4.8-10.8)
[2019-08-29 10:46] LABS: ALANINE AMINOTRANSFERASE 32 U/L (12-78); ALBUMIN 2.3 G/DL (3.4-5.0); ALBUMIN/GLOBULIN RATIO 0.5 (1.0-2.7); ALKALINE PHOSPHATASE 114 U/L (46-116); ANION GAP 4 mmol/L (5-15); ASPARTATE AMINO TRANSFERASE 28 U/L (15-37); BILIRUBIN,TOTAL 0.3 MG/DL (0.2-1.0); BLOOD UREA NITROGEN 18 mg/dL (7-18); CALCIUM 8.7 MG/DL (8.5-10.1); CARBON DIOXIDE 33 MMOL/L (21-32); CHLORIDE 110 MMOL/L (98-107); CREATININE 0.9 MG/DL (0.55-1.30); POTASSIUM 3.3 MMOL/L (3.5-5.1); SODIUM 147 MMOL/L (136-145)
--- NOTE | 2019-08-29 10:47 | Infectious Diseases Prog Note ---
Assessment/Plan Assessment/Plan A 1. Klebsiella & Providencia pneumonia 2. COVID 19 test negative x 1 3. Respiratory failure, status post tracheostomy. 4. Stroke. 5. Intracranial bleeding. 6. Leukocytosis improving 7. Anemia 8. GI bleeding P 1. continue Ertapenem 2. will follow up cultures Subjective ROS Limited/Unobtainable: Yes Constitutional: Denies: fever Allergies: Coded Allergies: NILAY INHIBITORS (Verified Allergy, Unknown, 12/13/18) AMLODIPINE (Verified Allergy, Unknown, 12/13/18) PENICILLINS (Verified Allergy, Unknown, 12/13/18) Uncoded Allergies: HYDROCHLORTHIAZIDE (Allergy, Unknown, 12/13/18) Objective Vital Signs Last 24 Hour Vital Signs Date Time Temp Pulse Resp B/P (MAP) Pulse Ox O2 Delivery O2 Flow Rate FiO2 08/29/19 09:54 101 143/64 08/29/19 09:52 143/64 08/29/19 08:55 101 08/29/19 08:00 40 08/29/19 08:00 97.9 99 27 147/70 (95) 98 08/29/19 08:00 Mechanical Ventilator 08/29/19 07:42 77 28 40 08/29/19 05:59 150/78 08/29/19 04:00 79 08/29/19 04:00 40 08/29/19 04:00 98.4 100 22 126/91 (103) 100 08/29/19 04:00 Mechanical Ventilator 08/29/19 03:20 85 20 40 08/29/19 00:59 127/60 08/29/19 00:00 90 08/29/19 00:00 99.1 94 22 117/59 (78) 99 08/29/19 00:00 Mechanical Ventilator 08/28/19 23:40 87 21 40 08/28/19 20:25 88 113/53 08/28/19 20:00 98.6 88 22 113/53 (73) 99 08/28/19 20:00 Mechanical Ventilator 08/28/19 20:00 40 08/28/19 19:31 87 08/28/19 19:10 81 18 40 08/28/19 18:00 93/49 08/28/19 16:00 70 08/28/19 16:00 Mechanical Ventilator 08/28/19 16:00 40 08/28/19 16:00 99.0 82 19 93/49 (64) 99 08/28/19 15:08 68 21 40 08/28/19 12:30 65 08/28/19 12:00 40 08/28/19 12:00 98.2 80 20 103/45 (64) 99 08/28/19 12:00 103/45 08/28/19 12:00 Mechanical Ventilator Height (Feet): 5 Height (Inches): 5.00 Weight (Pounds): 165 HEENT: status post trach Respiratory/Chest: decreased breath sounds, other - on ventilator Cardiovascular: tachycardia Abdomen: soft, non tender, other - GT in place Extremities: other - mild edema Neurologic/Psychiatric: alert, responsive Microbiology Date/Time Source Procedure Growth Status 08/26/19 18:06 Nasopharynx Coronavirus COVID-19 PCR ([facility]) - Final Complete 08/26/19 18:00 Sputum Expectorated Gram Stain - Final Complete 08/26/19 18:00 Sputum Culture - Final Providencia Stuartii Klebsiella Pneumoniae Esbl Complete Laboratory Tests Test 08/29/19 08:30 White Blood Count 11.3 K/UL (4.8-10.8) H Red Blood Count 3.24 M/UL (4.20-5.40) L Hemoglobin 9.4 G/DL (12.0-16.0) L Hematocrit 28.8 % (37.0-47.0) L Mean Corpuscular Volume 89 FL (80-99) Mean Corpuscular Hemoglobin 29.1 PG (27.0-31.0) Mean Corpuscular Hemoglobin Concent 32.8 G/DL (32.0-36.0) Red Cell Distribution Width 16.5 % (11.6-14.8) H Platelet Count 266 K/UL (150-450) Mean Platelet Volume 7.1 FL (6.5-10.1) Neutrophils (%) (Auto) 81.3 % (45.0-75.0) H Lymphocytes (%) (Auto) 5.3 % (20.0-45.0) L Monocytes (%) (Auto) 9.6 % (1.0-10.0) Eosinophils (%) (Auto) 2.9 % (0.0-3.0) Basophils (%) (Auto) 0.9 % (0.0-2.0) Sodium Level Pending Potassium Level Pending Chloride Level Pending Carbon Dioxide Level Pending Blood Urea Nitrogen Pending Creatinine Pending Estimat Glomerular Filtration Rate Pending Glucose Level Pending Calcium Level Pending Magnesium Level Pending Total Bilirubin Pending Aspartate Amino Transf (AST/SGOT) Pending Alanine Aminotransferase (ALT/SGPT) Pending Alkaline Phosphatase Pending Total Protein Pending Albumin Pending Globulin Pending Thyroid Stimulating Hormone (TSH) Pending Vancomycin Level Trough Pending Current Medications Medications (Trade) Dose Ordered Sig/Jane Route PRN Reason Start Time Stop Time Status Last Admin Dose Admin Acetaminophen (Tylenol) 650 mg Q4H PRN GT Mild Pain (Pain Scale 1-3) 08/24/19 17:30 09/23/19 17:29 Acetaminophen (Tylenol) 650 mg Q4H PRN GT Temp >100.5 08/24/19 17:45 09/23/19 17:44 Al Hydroxide/Mg Hydroxide (Mylanta) 30 ml Q4H PRN GT STOMACH UPSET 08/24/19 17:30 09/23/19 17:29 Ascorbic Acid (Vitamin C) 500 mg EVERY 12 HOURS GT 08/25/19 21:00 09/23/19 17:59 08/29/19 09:51 Atorvastatin Calcium (Lipitor) 20 mg BEDTIME GT 08/24/19 21:00 11/22/19 20:59 08/28/19 20:25 Bacitracin (Bacitracin) 1 applic EVERY 12 HOURS TOPIC 08/25/19 21:00 09/03/19 21:01 08/29/19 09:55 Calcium/Vitamin D (OsCal D) 1 tab DAILY GT 08/25/19 09:00 11/23/19 08:59 08/29/19 09:51 Demeclocycline HCl (Declomycin) 150 mg Q12HR GT 08/24/19 21:00 08/31/19 20:59 08/29/19 09:52 Dextrose (Dextrose 50%) 25 ml Q30M PRN IV Hypoglycemia 08/24/19 19:15 11/22/19 19:14 Dextrose (Dextrose 50%) 50 ml Q30M PRN IV Hypoglycemia 08/24/19 19:15 11/22/19 19:14 Dextrose/Sodium Chloride 1,000 ml @ 75 mls/hr [id number] IV 08/27/19 17:00 09/26/19 16:59 08/29/19 09:59 Docusate Sodium (Colace) 100 mg DAILY GT 08/25/19 09:00 09/24/19 08:59 08/28/19 09:19 Epoetin Mehran (Epoetin Mehran-EPBX(NON ESRD)) 10,000 unit FRI- SUBQ 08/25/19 21:00 11/23/19 20:59 08/27/19 21:15 Ertapenem 1 gm/ Sodium Chloride 55 ml @ 110 mls/hr Q24H IVPB 08/26/19 10:00 08/31/19 09:59 08/29/19 09:57 Hydralazine HCl (Apresoline) 10 mg Q4H PRN IV For High Blood Pressure 08/25/19 03:00 11/23/19 02:59 08/26/19 04:37 Hydralazine HCl (Apresoline) 100 mg Q6HR GT 08/24/19 18:00 11/22/19 17:59 08/29/19 05:59 Insulin Aspart (NovoLOG) EVERY 6 HOURS SUBQ 08/25/19 12:00 11/22/19 20:59 Labetalol HCl (Normodyne) 200 mg Q12HR GT 08/24/19 21:00 09/23/19 20:59 08/29/19 09:54 Levothyroxine Sodium (Synthroid) 75 mcg DAILY@0630 GT 08/25/19 06:30 09/24/19 06:29 08/29/19 05:55 Levothyroxine Sodium (Synthroid) 100 mcg DAILY@0630 GT 08/25/19 06:30 09/24/19 06:29 08/29/19 05:55 Magnesium Hydroxide (Mom) 30 ml DAILYPRN PRN GT Constipation 08/24/19 17:45 09/23/19 17:44 Magnesium Oxide (Mag-Ox 400mg) 400 mg EVERY 12 HOURS GT 08/25/19 21:00 09/23/19 17:59 08/29/19 09:53 Minoxidil (Loniten) 2.5 mg DAILY GT 08/25/19 09:00 11/23/19 08:59 08/29/19 09:52 Multivitamins (Multivitamins W/ Minerals 15ml Liquid) 15 ml DAILY GT 08/25/19 09:00 09/24/19 08:59 08/29/19 09:53 Ondansetron HCl (Zofran) 4 mg Q6H PRN IVP Nausea & Vomiting 08/24/19 17:45 09/23/19 17:44 Pantoprazole (Protonix) 40 mg EVERY 12 HOURS IVP 08/25/19 03:15 09/24/19 03:14 08/29/19 09:51 Polyethylene Glycol (Miralax) 17 gm DAILY GT 08/25/19 09:00 09/24/19 08:59 08/28/19 09:18 Sodium Chloride (NaCl) 1 gm DAILY GT 08/25/19 09:00 09/24/19 08:59 08/29/19 09:51 Sodium Phosphate (Fleet's Sodium Phosl Enema) 133 ml DAILYPRN PRN RECTAL constipation 08/24/19 18:15 09/23/19 17:44 Kem Garcia MD Aug 29, 2019 10:47
--- NOTE | 2019-08-29 13:18 | NUR ---
NURSE NOTES: Notified Dr. Louis of pt. K+ level of 3.3. Awaiting response for further orders.
[2019-08-29] MEDS ORDERED: D5 1/2NS 1000ml IV ONE (13:41)
[2019-08-29] MEDS ORDERED: NS 275ml ONE (13:41)
--- NOTE | 2019-08-29 15:50 | General Progress Note ---
Assessment/Plan Assessment/Plan: jAssessment - s/p new PEG, after failed GT replacement - WBC improving - drop in H&H - etiology still not clear - ? related to the GT migration / site ulcer (OB positive), ? other intra-abdominal source (negative CT) - Resp failure - s/p Trach - contractures - ICB/CVA Recommendations - Continue TF - Broad spectrum abx - follow CBC - wound care - surgical f/u Subjective Allergies: Coded Allergies: NILAY INHIBITORS (Verified Allergy, Unknown, 12/13/18) AMLODIPINE (Verified Allergy, Unknown, 12/13/18) PENICILLINS (Verified Allergy, Unknown, 12/13/18) Uncoded Allergies: HYDROCHLORTHIAZIDE (Allergy, Unknown, 12/13/18) Subjective above noted seen this afternoon NAD tolerating feeds Objective Last 24 Hour Vital Signs Date Time Temp Pulse Resp B/P (MAP) Pulse Ox O2 Delivery O2 Flow Rate FiO2 08/29/19 15:18 82 23 40 08/29/19 12:35 127/58 08/29/19 12:15 89 19 98 Mechanical Ventilator 40 08/29/19 12:02 69 08/29/19 12:01 97.9 99 18 127/58 (81) 98 08/29/19 12:00 40 08/29/19 12:00 Mechanical Ventilator 08/29/19 11:15 84 19 40 08/29/19 09:54 101 143/64 08/29/19 09:52 143/64 08/29/19 08:55 101 08/29/19 08:00 40 08/29/19 08:00 97.9 99 27 147/70 (95) 98 08/29/19 08:00 Mechanical Ventilator 08/29/19 07:42 77 28 40 08/29/19 05:59 150/78 08/29/19 04:00 79 08/29/19 04:00 40 08/29/19 04:00 98.4 100 22 126/91 (103) 100 08/29/19 04:00 Mechanical Ventilator 08/29/19 03:20 85 20 40 08/29/19 00:59 127/60 08/29/19 00:00 90 08/29/19 00:00 99.1 94 22 117/59 (78) 99 08/29/19 00:00 Mechanical Ventilator 08/28/19 23:40 87 21 40 08/28/19 20:25 88 113/53 08/28/19 20:00 98.6 88 22 113/53 (73) 99 08/28/19 20:00 Mechanical Ventilator 08/28/19 20:00 40 08/28/19 19:31 87 08/28/19 19:10 81 18 40 08/28/19 18:00 93/49 08/28/19 16:00 70 08/28/19 16:00 Mechanical Ventilator 08/28/19 16:00 40 08/28/19 16:00 99.0 82 19 93/49 (64) 99 Intake and Output 08/28/19 08/29/19 19:00 07:00 Intake Total 1270 ml 1310 ml Output Total 200 ml Balance 1270 ml 1110 ml Free Water 100 ml 100 ml IV Total 675 ml 750 ml Tube Feeding 495 ml 460 ml Output Urine Total 200 ml # Voids 3 # Bowel Movements 1 2 Laboratory Tests 08/29/19 08:30: White Blood Count 11.3H, Red Blood Count 3.24L, Hemoglobin 9.4L, Hematocrit 28.8L, Mean Corpuscular Volume 89, Mean Corpuscular Hemoglobin 29.1, Mean Corpuscular Hemoglobin Concent 32.8, Red Cell Distribution Width 16.5H, Platelet Count 266, Mean Platelet Volume 7.1, Neutrophils (%) (Auto) 81.3H, Lymphocytes (%) (Auto) 5.3L, Monocytes (%) (Auto) 9.6, Eosinophils (%) (Auto) 2.9, Basophils (%) (Auto) 0.9, Sodium Level 147H, Potassium Level 3.3L, Chloride Level 110H, Carbon Dioxide Level 33H, Anion Gap 4L, Blood Urea Nitrogen 18, Creatinine 0.9, Estimat Glomerular Filtration Rate > 60, Glucose Level 123H, Calcium Level 8.7, Magnesium Level 2.0, Total Bilirubin 0.3, Aspartate Amino Transf (AST/SGOT) 28, Alanine Aminotransferase (ALT/SGPT) 32, Alkaline Phosphatase 114, Total Protein 7.1, Albumin 2.3L, Globulin 4.8, Albumin /Globulin Ratio 0.5L, Thyroid Stimulating Hormone (TSH) 3.230, Vancomycin Level Trough 11.8 Height (Feet): 5 Height (Inches): 5.00 Weight (Pounds): 165 Objective debilitated AA woman NCAT (+) trach coarse BS RR abd soft ND old GT site improved c/t yesterday, with less drainage and erythema new GT site with clean edges and no significant discharge (+) contractures Abner Long MD Aug 29, 2019 15:50
--- NOTE | 2019-08-29 17:38 | Surgery Progress Note ---
Surgery Progress Note Subjective Additional Comments wilda cute events Objective Last 24 Hour Vital Signs Date Time Temp Pulse Resp B/P (MAP) Pulse Ox O2 Delivery O2 Flow Rate FiO2 08/29/19 16:00 98.1 78 18 112/62 (79) 98 08/29/19 16:00 Mechanical Ventilator 08/29/19 16:00 40 08/29/19 15:58 57 08/29/19 15:18 82 23 40 08/29/19 12:35 127/58 08/29/19 12:15 89 19 98 Mechanical Ventilator 40 08/29/19 12:02 69 08/29/19 12:01 97.9 99 18 127/58 (81) 98 08/29/19 12:00 40 08/29/19 12:00 Mechanical Ventilator 08/29/19 11:15 84 19 40 08/29/19 09:54 101 143/64 08/29/19 09:52 143/64 08/29/19 08:55 101 08/29/19 08:00 40 08/29/19 08:00 97.9 99 27 147/70 (95) 98 08/29/19 08:00 Mechanical Ventilator 08/29/19 07:42 77 28 40 08/29/19 05:59 150/78 08/29/19 04:00 79 08/29/19 04:00 40 08/29/19 04:00 98.4 100 22 126/91 (103) 100 08/29/19 04:00 Mechanical Ventilator 08/29/19 03:20 85 20 40 08/29/19 00:59 127/60 08/29/19 00:00 90 08/29/19 00:00 99.1 94 22 117/59 (78) 99 08/29/19 00:00 Mechanical Ventilator 08/28/19 23:40 87 21 40 08/28/19 20:25 88 113/53 08/28/19 20:00 98.6 88 22 113/53 (73) 99 08/28/19 20:00 Mechanical Ventilator 08/28/19 20:00 40 08/28/19 19:31 87 08/28/19 19:10 81 18 40 08/28/19 18:00 93/49 I&O Intake and Output 08/28/19 08/29/19 19:00 07:00 Intake Total 1270 ml 1310 ml Output Total 200 ml Balance 1270 ml 1110 ml Free Water 100 ml 100 ml IV Total 675 ml 750 ml Tube Feeding 495 ml 460 ml Output Urine Total 200 ml # Voids 3 # Bowel Movements 1 2 Dressing: other Wound: other Drains: other Cardiovascular: RSR Respiratory: decreased breath sounds Abdomen: soft, non-tender, present bowel sounds Extremities: no cyanosis Laboratory Tests Test 08/29/19 08:30 White Blood Count 11.3 K/UL (4.8-10.8) H Red Blood Count 3.24 M/UL (4.20-5.40) L Hemoglobin 9.4 G/DL (12.0-16.0) L Hematocrit 28.8 % (37.0-47.0) L Mean Corpuscular Volume 89 FL (80-99) Mean Corpuscular Hemoglobin 29.1 PG (27.0-31.0) Mean Corpuscular Hemoglobin Concent 32.8 G/DL (32.0-36.0) Red Cell Distribution Width 16.5 % (11.6-14.8) H Platelet Count 266 K/UL (150-450) Mean Platelet Volume 7.1 FL (6.5-10.1) Neutrophils (%) (Auto) 81.3 % (45.0-75.0) H Lymphocytes (%) (Auto) 5.3 % (20.0-45.0) L Monocytes (%) (Auto) 9.6 % (1.0-10.0) Eosinophils (%) (Auto) 2.9 % (0.0-3.0) Basophils (%) (Auto) 0.9 % (0.0-2.0) Sodium Level 147 MMOL/L (136-145) H Potassium Level 3.3 MMOL/L (3.5-5.1) L Chloride Level 110 MMOL/L (98-107) H Carbon Dioxide Level 33 MMOL/L (21-32) H Anion Gap 4 mmol/L (5-15) L Blood Urea Nitrogen 18 mg/dL (7-18) Creatinine 0.9 MG/DL (0.55-1.30) Estimat Glomerular Filtration Rate > 60 mL/min (>60) Glucose Level 123 MG/DL (74-106) H Calcium Level 8.7 MG/DL (8.5-10.1) Magnesium Level 2.0 MG/DL (1.8-2.4) Total Bilirubin 0.3 MG/DL (0.2-1.0) Aspartate Amino Transf (AST/SGOT) 28 U/L (15-37) Alanine Aminotransferase (ALT/SGPT) 32 U/L (12-78) Alkaline Phosphatase 114 U/L (46-116) Total Protein 7.1 G/DL (6.4-8.2) Albumin 2.3 G/DL (3.4-5.0) L Globulin 4.8 g/dL Albumin/Globulin Ratio 0.5 (1.0-2.7) L Thyroid Stimulating Hormone (TSH) 3.230 uiU/mL (0.358-3.740) Vancomycin Level Trough 11.8 ug/mL (5.0-12.0) Plan Problems: (1) Decubitus skin ulcer Assessment & Plan: Pt presented on admission with Bilat Foot drop, contractures of both upper extremities and a reabsorbing Sacral DTPI . Base of wound is maroon without induration or fluctuance . An area of loose dry skin noted at sacrococcygeal area. Non-Blanching erythema noted along borders.5cm x (W)5.5cm. R and L Heels are boggy with non-Blanching erythema. Pt has a Tracheostomy. No evidence of skin breakdown noted under collar of trach. Tx.Plan: Apply Moisture Barrier Paste to Sacrum. Cover with Optifoam drsg. Changee very 3 days and prn. Apply Cavilon Skin Barrier to both heels. Cover each Heel with Optifoam drsg. Change every 7 days and prn. Reposition at least every 2hours or as tolerated. Off-load heels with Pillows. APM/ASIM Mattress overlay. DAILY ESTIMATED NEEDS: Needs based on Critical care/ 60kg abw 22-28 kcals/kg 1850-9342 total kcals 1.2-2 g protein/kg 72-120 g total protein 25-30 mL/kg 8055-0276 total fluid mLs NUTRITION DIAGNOSIS: * Swallowing difficulty R/T dysphagia, respiratory status as evidenced by pt is trach-vent dep, PEG dep. 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 (2) Chronic respiratory failure (3) Acute on chronic anemia (4) Shoulder dislocation (5) Ventilator dependence (6) Chronic anemia (7) GI bleed Assessment & Plan: Patient admitted with severe anemia likely source GI. Guaiac positive. No active bleeding noted. G-tube suction without blood. Plan for scope by GI. Will await findings. Transfusions H&H improved we will monitor. Coags noted stable We will be available in case of surgical intervention necessary for GI bleed unable to identify or manage with scope. Will follow with recommendations thank you for let me participate in patient's care Rocky Montenegro Aug 29, 2019 17:38
--- NOTE | 2019-08-29 19:02 | NUR ---
HAND-OFF: Report given to Ann Terry RN. Patient stable, and alert to verbal and tactile stimuli.
--- NOTE | 2019-08-29 19:03 | NUR ---
NURSE NOTES: received pt from To RN., pt is awake and resting on the bed. AOx2 at this time. Gtube site is intact, clean, and patent.trach vent in place, no SOB noted. O2sat 97%. old Gtube site dressing dry and clean. purewick is on the pt. pt's Right had 20G left FA 20G IV sites are clean, intact, and patent. call light within reach. bed at the lowest positioned, alarmed, and locked. will continue to monitor pt with plan of care.
[2019-08-29] MEDS: Atorvastatin 20mg tab GT SCH (21:09)
--- NOTE | 2019-08-30 | NUR ---
NURSE NOTES: cleaned pt, oral care given, repositioned pt. new gown and new blanket provided. call light within reach. will continue to monitor pt with plan of care.
--- NOTE | 2019-08-30 02:00 | Progress Note ---
DATE: 08/29/2019 CARDIOLOGY PROGRESS NOTE SUBJECTIVE: The patient had episodes of second-degree AV block type 1 yesterday. Blood pressure parameters were unaffected. The patient does have episodes of low blood pressure, but not related to bradycardias. The patient is ventilator dependent. The patient had a G-tube replacement two days ago and as I stated yesterday a component of increased vagal tone may have contributed to her bradyarrhythmias. OBJECTIVE: VITAL SIGNS: Blood pressure 111/88, pulse 90, respirations 18, afebrile. LUNGS: Clear. NECK: Thin trach secretions. CARDIAC: Regular rhythm and rate. Normal S1, S2 with no murmur. ABDOMEN: Soft. G-tube intact. EXTREMITIES: Trace edema. LABORATORY DATA: White count 11, hemoglobin 9.4. Sodium 147, potassium 3.3, bicarb 33, chloride 110, BUN 18, creatinine 0.9. Albumin 2.3. TSH 3.2. IMPRESSION: 1. Increased vagal tone with associated bradyarrhythmias, manifesting with second-degree type 1 AV of no hemodynamic significance. 2. Status post G-tube revision and replacement. 3. Dehydration, hypernatremia. 4. Hyperchloremia. 5. Hypokalemia. 6. Euthyroid state. 7. Anemia. 8. Ventilator-dependent respiratory failure. 9. Quadriplegia with cerebrovascular accident and history of intracranial bleed. PLAN: 1. No indication for pacemaker. 2. Continue cardiac monitoring. 3. Hypotonic IV fluids. 4. Hold diuretics. 5. No resumption of clonidine. 6. Cautious use of labetalol. 7. Monitor electrolytes and reassess. 8. Discontinue the meclocycline. Srinivasan Terry M.D. DR: DIPTI JOB#: [id number] CC:
--- NOTE | 2019-08-30 03:38 | NUR ---
NURSE NOTES: pt is sleeping, no SOB noted. call light within reach.
[2019-08-30 04:00] VITALS: BP 130/70
[2019-08-30] MEDS: NovoLOG Insulin Flexpen SUBQ SCH ×2 (06:00→11:31)
--- NOTE | 2019-08-30 06:00 | NUR ---
NURSE NOTES: K-Dur scheduled at 0130 changed to 0600. K-dur given via [employer].
[2019-08-30] MEDS: HydrALAZINE 50mg tab GT SCH ×2 (07:38→11:34)
--- NOTE | 2019-08-30 07:54 | NUR ---
HAND-OFF: Report given to Cheryl WHITLEY., pt is stable condition, endorsed plan of care.
[2019-08-30 08:00] VITALS: BP 155/72
--- NOTE | 2019-08-30 08:00 | NUR ---
NURSE NOTES: Received report from ANGI Oden. The patient is resting on the bed without acute distress or shortness of breath. The patient is vented on ordered setting and able to make communication with pointing and facial expression. The patient is trach'ed and ventilator on following setting: Portex 7, AC 16, TV 400, PEEP 5, FiO2 40%. The patient's G-tube intact and patent and tube feeding running as ordered. No residual on G tube noted. The patient is on purewig and draining well by suction. Skin issue noted and dressing is intact. R hand 20G and L FA 20G intact and patent and kept in TKO. Will follow up the order and lab. Will continue plan of care.
--- NOTE | 2019-08-30 08:11 | General Progress Note ---
Assessment/Plan Assessment/Plan: IMPRESSION: Anemia, possible GI bleed, SIADH, tracheostomy, G-tube, functional quadriplegia. possible GT site cellulitis, leukocytosis, possible sepsis; pneumonia anasarca PLAN ID noted antibiotics broad vent support monitor GT functional dc to snf impression, plan, and exam edited and reviewed in detail care discussed with RN Subjective Allergies: Coded Allergies: NILAY INHIBITORS (Verified Allergy, Unknown, 12/13/18) AMLODIPINE (Verified Allergy, Unknown, 12/13/18) PENICILLINS (Verified Allergy, Unknown, 12/13/18) Uncoded Allergies: HYDROCHLORTHIAZIDE (Allergy, Unknown, 12/13/18) Subjective labs and vent noted gi and gs noted Objective Last 24 Hour Vital Signs Date Time Temp Pulse Resp B/P (MAP) Pulse Ox O2 Delivery O2 Flow Rate FiO2 08/30/19 07:38 129/72 08/30/19 07:10 82 20 40 08/30/19 04:00 98.6 99 18 130/70 (90) 97 08/30/19 04:00 Mechanical Ventilator 08/30/19 04:00 86 08/30/19 04:00 40 08/30/19 02:54 83 19 40 08/30/19 00:00 Mechanical Ventilator 08/30/19 00:00 89 08/29/19 23:50 127/61 08/29/19 23:46 99.0 98 18 127/61 (83) 96 08/29/19 22:46 94 22 40 08/29/19 21:08 103 08/29/19 20:00 Mechanical Ventilator 08/29/19 20:00 40 08/29/19 20:00 98.1 90 18 111/88 (96) 97 08/29/19 19:38 97 08/29/19 19:02 96 23 40 08/29/19 17:48 154/61 08/29/19 16:00 98.1 78 18 112/62 (79) 98 08/29/19 16:00 Mechanical Ventilator 08/29/19 16:00 40 08/29/19 15:58 57 08/29/19 15:18 82 23 40 08/29/19 12:35 127/58 08/29/19 12:15 89 19 98 Mechanical Ventilator 40 08/29/19 12:02 69 08/29/19 12:01 97.9 99 18 127/58 (81) 98 08/29/19 12:00 40 08/29/19 12:00 Mechanical Ventilator 08/29/19 11:15 84 19 40 08/29/19 09:54 101 143/64 08/29/19 09:52 143/64 08/29/19 08:55 101 Intake and Output 08/29/19 08/30/19 18:59 06:59 Intake Total 1600 ml 705 ml Output Total 400 ml Balance 1200 ml 705 ml Free Water 150 ml 50 ml IV Total 900 ml 450 ml Tube Feeding 550 ml 205 ml Output Urine Total 400 ml # Bowel Movements 1 Laboratory Tests 08/29/19 08:30: White Blood Count 11.3H, Red Blood Count 3.24L, Hemoglobin 9.4L, Hematocrit 28.8L, Mean Corpuscular Volume 89, Mean Corpuscular Hemoglobin 29.1, Mean Corpuscular Hemoglobin Concent 32.8, Red Cell Distribution Width 16.5H, Platelet Count 266, Mean Platelet Volume 7.1, Neutrophils (%) (Auto) 81.3H, Lymphocytes (%) (Auto) 5.3L, Monocytes (%) (Auto) 9.6, Eosinophils (%) (Auto) 2.9, Basophils (%) (Auto) 0.9, Sodium Level 147H, Potassium Level 3.3L, Chloride Level 110H, Carbon Dioxide Level 33H, Anion Gap 4L, Blood Urea Nitrogen 18, Creatinine 0.9, Estimat Glomerular Filtration Rate > 60, Glucose Level 123H, Calcium Level 8.7, Magnesium Level 2.0, Total Bilirubin 0.3, Aspartate Amino Transf (AST/SGOT) 28, Alanine Aminotransferase (ALT/SGPT) 32, Alkaline Phosphatase 114, Total Protein 7.1, Albumin 2.3L, Globulin 4.8, Albumin /Globulin Ratio 0.5L, Thyroid Stimulating Hormone (TSH) 3.230, Vancomycin Level Trough 11.8 Height (Feet): 5 Height (Inches): 5.00 Weight (Pounds): 165 Objective GENERAL: An ill-appearing female, obtunded. HEENT: Negative. Tracheostomy midline. LUNGS: Moderate breath sounds. CARDIAC: S1, S2. Regular rate and rhythm at present. ABDOMEN: Soft, nontender. GT EXTREMITIES: Contracted with noted chronic shoulder dislocation. Duncan Louis MD Aug 30, 2019 08:11
--- NOTE | 2019-08-30 08:36 | NUR ---
RD ASSESSMENT & RECOMMENDATIONS SEE CARE ACTIVITY FOR COMPLETE ASSESSMENT DAILY ESTIMATED NEEDS: Needs based on Critical care/ 60kg abw 22-28 kcals/kg 7479-6624 total kcals 1.2-2 g protein/kg 72-120 g total protein 25-30 mL/kg 5243-0191 total fluid mLs NUTRITION DIAGNOSIS: * Swallowing difficulty R/T dysphagia, respiratory status as evidenced by pt is trach-vent dep, PEG dep, NPO at this time, s/p failed GT replacement, s/p new GT placement. (CURRENT TF: Glucerna 1.2 @55ml /hr) ENTERAL NUTRITION RECOMMENDATIONS: Jevity 1.2 @ 60ml/hr x 22 hrs (hold 1hr before and after Synthroid) to provide 1320ml, 1584kcal, 73g prot, 1065ml free water * As medically appropriate, initiate Jevity 1.2 @ 15ml/hr x 6hrs (pt w/ h/o DM, but on non-carb controlled TF [employer], w/ good BG control, currently w/ national shortage of Glucerna 1.2/1.5) * Advance 10ml q 4-6 hrs as tolerated to goal * HOB over 30 degrees * Without IVF, water flush of 120ml q 6hrs * HOB over 30 degrees ADDITIONAL RECOMMENDATIONS: * Per SNF, HT=65", LW=724cha (08/23/19) * Monitor BGs closely w/ non-carb controlled TF * Monitor lytes, replete as needed -> Elev Na, rec to increase H2O flushes -> K low * Wound healing: Solo BID w/ TF order + Continue Vit C
[2019-08-30] MEDS: Miralax 17gm pkt GT SCH (09:00)
--- NOTE | 2019-08-30 09:00 | NUR ---
NURSE NOTES: Notified Dr. Louis regarding abnormal lab. No new order at this time. Dr. Louis ordered the patient to be discharged. Will clarify regarding antibiotics. Will continue plan of care until discharge.
--- NOTE | 2019-08-30 09:18 | General Progress Note ---
Assessment/Plan Assessment/Plan: jAssessment - s/p new PEG, after failed GT replacement - WBC improved - drop in H&H - etiology still not clear - ? related to the GT migration / site ulcer (OB positive), ? other intra-abdominal source (negative CT) - Resp failure - s/p Trach - contractures - ICB/CVA Recommendations - Continue TF but change to Jevity per RD rec - Broad spectrum abx - follow CBC - wound care - surgical f/u Subjective Allergies: Coded Allergies: NILAY INHIBITORS (Verified Allergy, Unknown, 12/13/18) AMLODIPINE (Verified Allergy, Unknown, 12/13/18) PENICILLINS (Verified Allergy, Unknown, 12/13/18) Uncoded Allergies: HYDROCHLORTHIAZIDE (Allergy, Unknown, 12/13/18) Subjective above noted RD note reviewed NAD tolerating feeds Objective Last 24 Hour Vital Signs Date Time Temp Pulse Resp B/P (MAP) Pulse Ox O2 Delivery O2 Flow Rate FiO2 08/30/19 07:38 129/72 08/30/19 07:10 82 20 40 08/30/19 04:00 98.6 99 18 130/70 (90) 97 08/30/19 04:00 Mechanical Ventilator 08/30/19 04:00 86 08/30/19 04:00 40 08/30/19 02:54 83 19 40 08/30/19 00:00 Mechanical Ventilator 08/30/19 00:00 89 08/29/19 23:50 127/61 08/29/19 23:46 99.0 98 18 127/61 (83) 96 08/29/19 22:46 94 22 40 08/29/19 21:08 103 08/29/19 20:00 Mechanical Ventilator 08/29/19 20:00 40 08/29/19 20:00 98.1 90 18 111/88 (96) 97 08/29/19 19:38 97 08/29/19 19:02 96 23 40 08/29/19 17:48 154/61 08/29/19 16:00 98.1 78 18 112/62 (79) 98 08/29/19 16:00 Mechanical Ventilator 08/29/19 16:00 40 08/29/19 15:58 57 08/29/19 15:18 82 23 40 08/29/19 12:35 127/58 08/29/19 12:15 89 19 98 Mechanical Ventilator 40 08/29/19 12:02 69 08/29/19 12:01 97.9 99 18 127/58 (81) 98 08/29/19 12:00 40 08/29/19 12:00 Mechanical Ventilator 08/29/19 11:15 84 19 40 08/29/19 09:54 101 143/64 08/29/19 09:52 143/64 Intake and Output 08/29/19 08/30/19 19:00 07:00 Intake Total 1575 ml 1155 ml Output Total 400 ml 600 ml Balance 1175 ml 555 ml Free Water 150 ml 110 ml IV Total 825 ml 450 ml Tube Feeding 600 ml 595 ml Output Urine Total 400 ml 600 ml # Voids 2 # Bowel Movements 2 Height (Feet): 5 Height (Inches): 5.00 Weight (Pounds): 165 Objective debilitated AA woman NCAT (+) trach coarse BS RR abd soft ND old GT site improved c/t yesterday, with less drainage and erythema new GT site with clean edges and no significant discharge (+) contractures Abner Long MD Aug 30, 2019 09:18
--- NOTE | 2019-08-30 09:30 | NUR ---
NURSE NOTES: Dr. Long changed the formula of tube feeding from Glucerna 1.2 to Jevity 1.2 @60mL/hr for 22 hours. Changed tube feeding formula as ordered. Will closely monitor whether the patient is tolerating well. Will continue plan of care.
[2019-08-30] MEDS: Docusate 100mg/10ml Liq GT SCH (09:40)
[2019-08-30] MEDS: Minoxidil 2.5mg tab GT SCH (09:41)
[2019-08-30] MEDS: Magnesium Oxide 400mg tab GT SCH (09:41)
[2019-08-30] MEDS: Labetalol 200mg tab GT SCH (09:42)
[2019-08-30] MEDS: Multivitamins W/Minerals 15 ML UDC GT SCH (09:42)
[2019-08-30] MEDS: Sodium Chloride 1gm Tab GT SCH (09:42)
[2019-08-30] MEDS: Pantoprazole Inj IVP SCH (09:43)
[2019-08-30] MEDS: Calcium Carbonate 500mg w/Vit D 200iu tab GT SCH (09:43)
[2019-08-30] MEDS: Ascorbic Acid 500mg tab GT SCH (09:43)
[2019-08-30] MEDS: Bacitracin Oint UD TOPIC SCH (09:44)
[2019-08-30] MEDS ORDERED: NS IVPB SCH (10:00)
[2019-08-30] MEDS ORDERED: ERTAPENEM IVPB SCH (10:00)
--- NOTE | 2019-08-30 10:00 | NUR ---
NURSE NOTES: The patient is stable without acute distress or shortness of breath. The patient seems to be comfortable. Will closely monitor the patient. Will continue plan of care. Addendum: 08/30/19 at 1501 by Óscar Gonzalez RN Morning medications administered as ordered.
[2019-08-30 11:25] VITALS: BP 133/67
--- NOTE | 2019-08-30 11:48 | Infectious Diseases Prog Note ---
"Assessment/Plan Assessment/Plan antibiotics : ertapenem A 1. klebsiella | providencia pneumonia 2. COVID 19 test negative x 1 3. Respiratory failure, status post tracheostomy. 4. Stroke. 5. Intracranial bleeding. 6. Leukocytosis improving P 1. continue ertapenem 2 more days 2. will follow up cultures Subjective ROS Limited/Unobtainable: Yes Allergies: Coded Allergies: NILAY INHIBITORS (Verified Allergy, Unknown, 12/13/18) AMLODIPINE (Verified Allergy, Unknown, 12/13/18) PENICILLINS (Verified Allergy, Unknown, 12/13/18) Uncoded Allergies: HYDROCHLORTHIAZIDE (Allergy, Unknown, 12/13/18) Objective Vital Signs Last 24 Hour Vital Signs Date Time Temp Pulse Resp B/P (MAP) Pulse Ox O2 Delivery O2 Flow Rate FiO2 08/30/19 11:34 133/67 08/30/19 11:25 97.9 77 18 133/67 (89) 100 08/30/19 11:15 82 26 40 08/30/19 09:42 81 155/72 08/30/19 09:41 155/72 08/30/19 07:38 129/72 08/30/19 07:10 82 20 40 08/30/19 04:00 98.6 99 18 130/70 (90) 97 08/30/19 04:00 Mechanical Ventilator 08/30/19 04:00 86 08/30/19 04:00 40 08/30/19 02:54 83 19 40 08/30/19 00:00 Mechanical Ventilator 08/30/19 00:00 89 08/29/19 23:50 127/61 08/29/19 23:46 99.0 98 18 127/61 (83) 96 08/29/19 22:46 94 22 40 08/29/19 21:08 103 08/29/19 20:00 Mechanical Ventilator 08/29/19 20:00 40 08/29/19 20:00 98.1 90 18 111/88 (96) 97 08/29/19 19:38 97 08/29/19 19:02 96 23 40 08/29/19 17:48 154/61 08/29/19 16:00 98.1 78 18 112/62 (79) 98 08/29/19 16:00 Mechanical Ventilator 08/29/19 16:00 40 08/29/19 15:58 57 08/29/19 15:18 82 23 40 08/29/19 12:35 127/58 08/29/19 12:15 89 19 98 Mechanical Ventilator 40 08/29/19 12:02 69 08/29/19 12:01 97.9 99 18 127/58 (81) 98 08/29/19 12:00 40 08/29/19 12:00 Mechanical Ventilator Height (Feet): 5 Height (Inches): 5.00 Weight (Pounds): 165 HEENT: status post trach Respiratory/Chest: lungs clear Cardiovascular: normal rate, regular rhythm, no gallop/murmur Abdomen: soft, non tender, other - GT Extremities: other - + edema Current Medications Medications (Trade) Dose Ordered Sig/Jane Route PRN Reason Start Time Stop Time Status Last Admin Dose Admin Acetaminophen (Tylenol) 650 mg Q4H PRN GT Mild Pain (Pain Scale 1-3) 08/24/19 17:30 09/23/19 17:29 Acetaminophen (Tylenol) 650 mg Q4H PRN GT Temp >100.5 08/24/19 17:45 09/23/19 17:44 Al Hydroxide/Mg Hydroxide (Mylanta) 30 ml Q4H PRN GT STOMACH UPSET 08/24/19 17:30 09/23/19 17:29 Ascorbic Acid (Vitamin C) 500 mg EVERY 12 HOURS GT 08/25/19 21:00 09/23/19 17:59 08/30/19 09:43 Atorvastatin Calcium (Lipitor) 20 mg BEDTIME GT 08/24/19 21:00 11/22/19 20:59 08/29/19 21:09 Bacitracin (Bacitracin) 1 applic EVERY 12 HOURS TOPIC 08/25/19 21:00 09/03/19 21:01 08/30/19 09:44 Calcium/Vitamin D (OsCal D) 1 tab DAILY GT 08/25/19 09:00 11/23/19 08:59 08/30/19 09:43 Dextrose (Dextrose 50%) 25 ml Q30M PRN IV Hypoglycemia 08/24/19 19:15 11/22/19 19:14 Dextrose (Dextrose 50%) 50 ml Q30M PRN IV Hypoglycemia 08/24/19 19:15 11/22/19 19:14 Docusate Sodium (Colace) 100 mg DAILY GT 08/25/19 09:00 09/24/19 08:59 08/30/19 09:40 Epoetin Mehran (Epoetin Mehran-EPBX(NON ESRD)) 10,000 unit FRI-FRI-FRI SUBQ 08/25/19 21:00 11/23/19 20:59 08/27/19 21:15 Ertapenem 0.5 gm/ Sodium Chloride 55 ml @ 110 mls/hr Q24H IV 08/30/19 12:00 09/04/19 11:59 Hydralazine HCl (Apresoline) 10 mg Q4H PRN IV For High Blood Pressure 08/25/19 03:00 11/23/19 02:59 08/26/19 04:37 Hydralazine HCl (Apresoline) 100 mg Q6HR GT 08/24/19 18:00 11/22/19 17:59 08/30/19 11:34 Insulin Aspart (NovoLOG) EVERY 6 HOURS SUBQ 08/25/19 12:00 11/22/19 20:59 Labetalol HCl (Normodyne) 200 mg Q12HR GT 08/24/19 21:00 09/23/19 20:59 08/30/19 09:42 Levothyroxine Sodium (Synthroid) 75 mcg DAILY@0630 GT 08/25/19 06:30 09/24/19 06:29 08/30/19 07:37 Levothyroxine Sodium (Synthroid) 100 mcg DAILY@0630 GT 08/25/19 06:30 09/24/19 06:29 08/30/19 07:37 Magnesium Hydroxide (Mom) 30 ml DAILYPRN PRN GT Constipation 08/24/19 17:45 09/23/19 17:44 Magnesium Oxide (Mag-Ox 400mg) 400 mg EVERY 12 HOURS GT 08/25/19 21:00 09/23/19 17:59 08/30/19 09:41 Minoxidil (Loniten) 2.5 mg DAILY GT 08/25/19 09:00 11/23/19 08:59 08/30/19 09:41 Multivitamins (Multivitamins W/ Minerals 15ml Liquid) 15 ml DAILY GT 08/25/19 09:00 09/24/19 08:59 08/30/19 09:42 Ondansetron HCl (Zofran) 4 mg Q6H PRN IVP Nausea & Vomiting 08/24/19 17:45 09/23/19 17:44 Pantoprazole (Protonix) 40 mg EVERY 12 HOURS IVP 08/25/19 03:15 09/24/19 03:14 08/30/19 09:43 Polyethylene Glycol (Miralax) 17 gm DAILY GT 08/25/19 09:00 09/24/19 08:59 08/28/19 09:18 Sodium Chloride (NaCl) 1 gm DAILY GT 08/25/19 09:00 09/24/19 08:59 08/30/19 09:42 Sodium Phosphate (Fleet's Sodium Phosl Enema) 133 ml DAILYPRN PRN RECTAL constipation 08/24/19 18:15 09/23/19 17:44 Stefan Montaño MD Aug 30, 2019 11:48"
[2019-08-30] MEDS ORDERED: Ertapenem 500mg ivpb (q24h) IV SCH ×2 (12:00)
--- NOTE | 2019-08-30 12:00 | NUR ---
NURSE NOTES: Blood sugar of 112 noted. No insulin coverage per protocol. Will closely monitor the patient. Will continue plan of care.
--- NOTE | 2019-08-30 12:06 | NUR ---
CASE MANAGEMENT: DCP UPON DISCHARGE PATIENT WILL RETURN TO [facility] [phone] ROOM # [address] [facility] [phone] CALLED. LEFT MESSAGE TRANSPORTATION VIA [facility] [phone] BAND SINGER 14:00
--- NOTE | 2019-08-30 12:30 | NUR ---
NURSE NOTES: Clarification made with Dr. Montaño regarding antibiotics. Dr. Montaño ordered the patient to continue Ertapenem 0.5gm IVPB Q24H for 2 more days (end date : 09/01/2019). Will prepare the patient for safe discharge. Will continue plan of care until discharge.
--- NOTE | 2019-08-30 12:36 | Surgery Progress Note ---
Surgery Progress Note Subjective Additional Comments stable labs noted exam unchanged dressings changed Objective Last 24 Hour Vital Signs Date Time Temp Pulse Resp B/P (MAP) Pulse Ox O2 Delivery O2 Flow Rate FiO2 08/30/19 11:34 133/67 08/30/19 11:25 97.9 77 18 133/67 (89) 100 08/30/19 11:15 82 26 40 08/30/19 09:42 81 155/72 08/30/19 09:41 155/72 08/30/19 07:38 129/72 08/30/19 07:10 82 20 40 08/30/19 04:00 98.6 99 18 130/70 (90) 97 08/30/19 04:00 Mechanical Ventilator 08/30/19 04:00 86 08/30/19 04:00 40 08/30/19 02:54 83 19 40 08/30/19 00:00 Mechanical Ventilator 08/30/19 00:00 89 08/29/19 23:50 127/61 08/29/19 23:46 99.0 98 18 127/61 (83) 96 08/29/19 22:46 94 22 40 08/29/19 21:08 103 08/29/19 20:00 Mechanical Ventilator 08/29/19 20:00 40 08/29/19 20:00 98.1 90 18 111/88 (96) 97 08/29/19 19:38 97 08/29/19 19:02 96 23 40 08/29/19 17:48 154/61 08/29/19 16:00 98.1 78 18 112/62 (79) 98 08/29/19 16:00 Mechanical Ventilator 08/29/19 16:00 40 08/29/19 15:58 57 08/29/19 15:18 82 23 40 I&O Intake and Output 08/29/19 08/30/19 19:00 07:00 Intake Total 1575 ml 1155 ml Output Total 400 ml 600 ml Balance 1175 ml 555 ml Free Water 150 ml 110 ml IV Total 825 ml 450 ml Tube Feeding 600 ml 595 ml Output Urine Total 400 ml 600 ml # Voids 2 # Bowel Movements 2 Dressing: saturated, other Wound: other Cardiovascular: RSR Respiratory: decreased breath sounds Abdomen: soft, present bowel sounds Extremities: no cyanosis, other Plan Problems: (1) Decubitus skin ulcer Assessment & Plan: Pt presented on admission with Bilat Foot drop, contractures of both upper extremities and a reabsorbing Sacral DTPI . Base of wound is maroon without induration or fluctuance . An area of loose dry skin noted at sacrococcygeal area. Non-Blanching erythema noted along borders.5cm x (W)5.5cm. R and L Heels are boggy with non-Blanching erythema. Pt has a Tracheostomy. No evidence of skin breakdown noted under collar of trach. Tx.Plan: Apply Moisture Barrier Paste to Sacrum. Cover with Optifoam drsg. Changee very 3 days and prn. Apply Cavilon Skin Barrier to both heels. Cover each Heel with Optifoam drsg. Change every 7 days and prn. Reposition at least every 2hours or as tolerated. Off-load heels with Pillows. APM/ASIM Mattress overlay. DAILY ESTIMATED NEEDS: Needs based on Critical care/ 60kg abw 22-28 kcals/kg 3117-7577 total kcals 1.2-2 g protein/kg 72-120 g total protein 25-30 mL/kg 9758-9856 total fluid mLs NUTRITION DIAGNOSIS: * Swallowing difficulty R/T dysphagia, respiratory status as evidenced by pt is trach-vent dep, PEG dep, NPO at this time, s/p failed GT replacement, s/p new GT placement. (CURRENT TF: Glucerna 1.2 @55ml /hr) ENTERAL NUTRITION RECOMMENDATIONS: Jevity 1.2 @ 60ml/hr x 22 hrs (hold 1hr before and after Synthroid) to provide 1320ml, 1584kcal, 73g prot, 1065ml free water * As medically appropriate, initiate Jevity 1.2 @ 15ml/hr x 6hrs (pt w/ h/o DM, but on non-carb controlled TF [employer], w/ good BG control, currently w/ national shortage of Glucerna 1.2/1.5) * Advance 10ml q 4-6 hrs as tolerated to goal * HOB over 30 degrees * Without IVF, water flush of 120ml q 6hrs * HOB over 30 degrees ADDITIONAL RECOMMENDATIONS: * Per SNF, HT=65", PW=[id number] (08/23/19) * Monitor BGs closely w/ non-carb controlled TF * Monitor lytes, replete as needed -> Elev Na, rec to increase H2O flushes -> K low * Wound healing: Solo BID w/ TF order + Continue Vit C (2) Chronic respiratory failure (3) Acute on chronic anemia (4) Shoulder dislocation (5) Ventilator dependence (6) Chronic anemia (7) GI bleed Assessment & Plan: Patient admitted with severe anemia likely source GI. Guaiac positive. No active bleeding noted. G-tube suction without blood. new peg Transfusions H&H improved we will monitor. Coags noted stable We will be available in case of surgical intervention necessary for GI bleed unable to identify or manage with scope. Will follow with recommendations thank you for let me participate in patient's care There is a gastrostomy in good position. No definite inflammatory changes are seen surrounding the gastrostomy shaft, although the presence of extensive generalized edema of the subcutaneous fat makes is difficult to exclude. There is a suggestion of an old gastrostomy tract just cephalad to this. The distal stomach and duodenum are very poorly visualized. Ingested contrast has traversed the entirety of the GI tract and reached the colon. There is a large left inguinal hernia. This is probably a direct hernia as the inferior epigastric vessels appear to be lateral to the hernia sac. No definite evidence of associated obstruction or strangulation. The hernia contains multiple loops of small bowel. The colon is diffusely stool-filled. There is colonic diverticulosis. No evidence of diverticulitis. There is a moderate to large hiatal hernia. No free or loculated intraperitoneal gas or fluid is evident. Lack of IV contrast limits assessment of the solid organs. The liver, gallbladder, bile ducts, pancreas, spleen, adrenals, kidneys are unremarkable. The bilateral common iliac arteries are ectatic but not frankly aneurysmal. The uterus is not definitely visualized. No pelvic mass or adenopathy. 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 The included lung bases demonstrate consolidation and atelectasis of much of the visualized lower lobes. The heart is enlarged. There is a small left pleural effusion. The bones demonstrate degenerative spondylosis changes and mild lumbar levoscoliotic deformity. There is a left hip prosthesis as mentioned earlier. Impression: Somewhat limited exam, as described, due to limited contrast resolution related to anasarca No definite acute abnormality. Good position of gastrostomy and no evidence of complications related to such Left inguinal hernia, probably a direct inguinal hernia, containing multiple small bowel loops.. No definite evidence of strangulation or obstruction Considerable basilar pulmonary parenchymal consolidation and atelectasis. Small left pleural effusion Cardiomegaly Colonic diverticulosis. No evidence of diverticulitis Stool-filled colon, could indicate a component of constipation. Correlate with clinical findings Moderate to large hiatal hernia Rocky Montenegro Aug 30, 2019 12:36
--- NOTE | 2019-08-30 13:30 | NUR ---
NURSE NOTES: Bed bath given to the patient. The patient tolerated well. Dressing changed and picture taken for the wound prior to discharge. Will continue plan of care until discharge.
--- NOTE | 2019-08-30 13:35 | NUR ---
*-* INSURANCE *-* UPDATED CLINICALS AND REVIEWS HAVE BEEN FAXED TO: #[phone] FAX#[phone] REVIEWS/CLINICALS
[2019-08-30 14:00] VITALS: BP 123/70
[2019-08-30] MEDS ORDERED: D5 1/2NS 1000ml IV ONE (14:29)
--- NOTE | 2019-08-30 14:30 | NUR ---
NURSE NOTES: The patient got safely discharged back to [facility] per Dr. Louis's discharge order to SNF with hospital medication. Clarification made with Dr. Montaño regarding antibiotics. Per Dr. Montaño, the patient is to continue Ertapenem 0.5GM IVPB Q24HRs for 2 days with end date of 09/01/2019. Per Dr. Louis, the patient is to keep IV site on R hand 20G that is intact and patent upon discharge due to IV antibiotics. The patient is AOx2 and discharge order and instruction given to the patient but the patient unable to understand. Report given to Nicol @ [facility] regarding discharge order, keeping IV on R hand 20G, and changed tube feeding formula to Jevity 1.2 @60mL/hr for 22hours, ventilator setting, continuation of Ertapenem 0.5GM IVPB Q24HR for 2 days with end date of 09/01/2019. Informed discharge back to Rehab to the next of Kin, Brendan De. Interfacility form completed, discharge medication reconciled, new discharge medication instruction given to Nicol who is receiving nurse at Rehab, and discharge packet. Discharge instruction given to the patient and Elkin, the receiving nurse @ [facility] but the patient is unable to sign. No belongings noted, the patient is unable to sign inventory list upon discharge. Report given to Uma and Caitlin @ [facility]. Bed bath given to the patient and dressing changed for the wound. Picture taken for the wound. Kept one IV but took out one IV, removed telebox by the primary nurse. Per Dr. Louis's order, the patient got safely discharged back to [facility] in a stable condition, informed the next of kin, [facility], Fabián @ [facility].
--- NOTE | 2019-08-30 14:30 | NUR ---
Pt. discharged around 1430. Vent removed from room.
--- NOTE | 2019-08-31 08:00 | Progress Note ---
DATE: 08/30/2019 CARDIOLOGY PROGRESS NOTE SUBJECTIVE: The patient has not had any further episodes of bradycardia. PHYSICAL EXAMINATION: VITAL SIGNS: Blood pressure 130/70, heart rate 82, respiratory rate 20. LUNGS: With bilateral breath sounds. Few rhonchi. CARDIAC: Regular rhythm rate. Normal S1, S2. ABDOMEN: Soft. EXTREMITIES: Trace edema. G-tube site intact. IMPRESSION: 1. Status post G-tube revision, resolved. 2. Episode of second-degree type 1 AV block, which was likely precipitated by increased vagal tone related to G-tube migration and procedure. 3. Hypernatremia due to demeclocycline, now discontinued and free water deficit with ongoing replacement. 4. Ventilator-dependent respiratory failure with tracheostomy. PLAN: The patient is stable for return to subacute facility. Electrolytes can be further followed there and adjustments to regimen made with regard to fluid replacement as needed. No antiarrhythmics indicated. The patient is stable on current cardiovascular regimen, which includes labetalol. Srinivasan Terry M.D. DR: JOYCE JOB#: [id number] CC:
--- NOTE | 2019-08-31 08:24 | Discharge Summary ---
Discharge Summary Discharge Summary _ DATE OF ADMISSION: 08/24/2019 DATE OF DISCHARGE: 08/30/2019 DISCHARGED BY: Dr. Louis REASON FOR ADMISSION: 78 years old female with past medical history of stroke, intracranial bleeding, chronic ventilator dependent respiratory failure with tracheostomy status, hypertension, diabetes mellitus, dysphagia, feeding by G-tube, chronic kidney disease, encephalopathy, presented from the subacute half-way facility due to anemia. As outpatient hemoglobin was 5.5 , and patient was sent for blood transfusion. Upon evaluation patient was afebrile, no signs of respiratory distress on current ventilator settings. Laboratory work-up revealed hemoglobin 5.3, hematocrit 16.8. No leukocytosis. Sodium 147. Chloride 108. BUN 28, creatinine 0.9. Glucose 110. Stable LFT. Albumin 2.6. Chest x-ray revealed borderline cardiomegaly. Bilateral right greater than left infiltrates versus edema. Patient was swabbed for COVID 19. Patient received fluids and admitted to [facility] for further management CONSULTANTS: building maintenance repairer ID specialist Dr. Montaño GI specialist Dr. Long surgery Dr. Montenegro [facility] COURSE: Patient admitted to [facility]. Ventilator support and pulmonary toilet provided. Tracheostomy care provided. Patient was followed-up with chest x-ray. Venous duplex bilateral lower extremity revealed no evidence of acute DVT. Patient was transfused with total of 4 units of packed red blood cells. Hemoglobin improved. GI specialist followed. Positive stool OB detected. Patient also noted to have occluded G-tube. Subsequently patient undergone upper endoscopy with G-tube replacement due to occluded gastrostomy catheter. G-tube site care with antibiotic ointment provided. Patient started on Bactrim. G-tube initially was used for medications. CT scan of the abdomen and pelvis subsequently was done and revealed no definite acute abnormality. Good position of gastrostomy tube , and no evidence of complication related to it. Patient started on tube feeding with protein supplements as per registered radiographer recommendations. Strict aspiration and reflux precautions were maintained. Per GI specialist, drop in hemoglobin still was unclear, with possible etiology related to old G-tube migration versus site ulcer . Stool for occult blood was positive. CT scan of the abdomen and pelvis was negative. Hemoglobin and hematocrit stabilized after transfusion. Prior to discharge hemoglobin 9.4 hematocrit 28.8. Closely monitor counts at the facility. Blood cultures were negative. Urine culture revealed mixed urogenital contaminants. Sputum culture revealed Providencia and Klebsiella ESBL. Leukocytosis jumped up on 08/25 to 23.4 Antibiotic provided as per ID specialist recommendation. SARS-CoV-2 by PCR from 08/25 came back not detected. Isolation was discontinued. ID specialist recommended to continue antibiotic at the facility for additional 2 days to complete the course. Leukocytosis trending down , patient remained afebrile. Cardiology consult was requested , since patient was noted to have episode of second-degree AV block. Per building maintenance repairer, patient had asymptomatic transient second-degree type I AV block , likely due to increased vagal tone in the setting of recent GI procedure. No further management/intervention was required. Patient was noted to have hypernatremia. Patient was prior on demeclocycline, which was discontinued. Free water replacement provided. Sodium improved. BUN down to 18. Potassium was replaced . Surgeon followed for possible surgical G tube placement, if percutaneous would be unsuccessful . Recommendation regarding G tube site care provided. Patient presented on admission with bilateral foot drop, contracturea of both upper extremity and sacral deep tissue pressure injury ulcer. Wound care provided as per surgeon recommendation. Continue wound care at the facility. Supportive care provided. Bowel regimen instituted. Patient clinically stabilized and was ready for transfer back to half-way facility for continuation of care FINAL DIAGNOSES: Anemia Possible GI bleeding/ stool OB positive Dysphagia Occluded gastrostomy catheter Possible G-tube site cellulitis Status post upper endoscopy with gastrostomy tube replacement Ventilator dependent respiratory failure with tracheostomy status Possible sepsis Klebsiella ESBL/Fifield pneumonia Suspected COVID-19- ruled out History of CVA History of intracranial bleeding Cerebrovascular disease with chronic encephalopathy Asymptomatic transient second-degree type I AV block Functional quadriplegia Protein calorie malnutrition Decubitus skin ulcer present on admission DISCHARGE MEDICATIONS: List of medication was sent to accepting facility DISCHARGE INSTRUCTIONS: Patient was discharged to the half-way facility. Follow up with medical doctor at the facility. I have been assigned to dictate discharge summary for this account. I was not involved in the patient's management. Gail Rogers NP Aug 31, 2019 08:24
--- NOTE | 2019-08-31 16:29 | NUR ---
* INSURANCE *-* DISCHARGE SUMMARY HAS BEEN FAXED TO CHERYLE LAWRENCE #[phone] FAX#[phone] REVIEWS/CLINICALS
--- NOTE | 2019-09-21 13:34 | Coder Physician Query ---
Clarification is required for compliance, coding accuracy, and to reflect severity of illness for this patient. Dear Dr. LEAL Date: 09/21/19 DIRECTOR CASE: LISANDRA FARMER RE: SEPSIS DIAGNOSIS Blood cultures were negative. Urine culture revealed mixed urogenital contaminants. Sputum culture revealed Providencia and Klebsiella ESBL. Leukocytosis jumped up on 08/25 to 23.4 Antibiotic provided as per ID specialist recommendation. SARS-CoV-2 by PCR from 08/25 came back not detected. FINAL DIAGNOSES: Anemia,Possible GI bleeding/ stool OB positive Dysphagia,Occluded gastrostomy catheter ,Possible G-tube site cellulitis Status post upper endoscopy with gastrostomy tube replacement Ventilator dependent respiratory failure with tracheostomy status Possible sepsis Klebsiella ESBL/Hendricks pneumonia A posssible diagnois of SEPSIS was made in the medical record ONLY in the Discharge summary. Upon review, it is difficult to determine whether this diagnosis has been ruled in, ruled out,or is still being worked up. Please indicate below the status of the aforementioned diagnosis. [] Treated and resolve [] Presumed and treated [] Currently under treatment [] Still being worked-up [] Ruled out Present on Admission: [] Yes [] No [] Clinically Undetermined Physician signature Date Please also document in your Progress Notes and/or Discharge Summary and indicate if the condition was present on admission. KASSI
== END 2019-08-30 14:30 | DRG 870 ==
LOC: EDBD 11:07 → EDUNIT# 11:07 → EMR 12:11 → 2W 12:15 → EDBEDREQ 12:39 → 2W 08-25 10:27
PROC: 5A1955Z Respiratory Ventilation, Greater than 96 Consecutive Hours (ICD-10-PCS; principal; 2019-08-24)
PROC: 30233N1 Transfusion of Nonautologous Red Blood Cells into Peripheral Vein, Percutaneous Approach (ICD-10-PCS; 2019-08-24)
PROC: 0DH68UZ Insertion of Feeding Device into Stomach, Via Natural or Artificial Opening Endoscopic (ICD-10-PCS; 2019-08-25)
DX: A41.9 Sepsis, unspecified organism (principal); R53.2 Functional quadriplegia; J15.0 Pneumonia due to Klebsiella pneumoniae; K94.23 Gastrostomy malfunction; G93.40 Encephalopathy, unspecified; J96.10 Chronic respiratory failure, unspecified whether with hypoxia or hypercapnia; D62 Acute posthemorrhagic anemia; E22.2 Syndrome of inappropriate secretion of antidiuretic hormone; E87.0 Hyperosmolality and hypernatremia; Z99.11 Dependence on respirator [ventilator] status; L89.156 Pressure-induced deep tissue damage of sacral region; Z88.0 Allergy status to penicillin; Z88.8 Allergy status to other drugs, medicaments and biological substances; R13.10 Dysphagia, unspecified; Z43.0 Encounter for attention to tracheostomy; M24.50 Contracture, unspecified joint; Z86.73 Personal history of transient ischemic attack (TIA), and cerebral infarction without residual deficits; M24.819 Other specific joint derangements of unspecified shoulder, not elsewhere classified; M21.372 Foot drop, left foot; M21.371 Foot drop, right foot; I44.1 Atrioventricular block, second degree; E86.0 Dehydration; E87.8 Other disorders of electrolyte and fluid balance, not elsewhere classified; E87.6 Hypokalemia; K40.90 Unilateral inguinal hernia, without obstruction or gangrene, not specified as recurrent; K44.9 Diaphragmatic hernia without obstruction or gangrene
CPT/HCPCS: 36415; 36430; 71045; 74176; 80048; 80053; 80202; 82270; 82962; 83735; 84443; 85007; 85025; 85610; 85730; 86850; 86900; 86901; 86920; 87040; 87070; 87081; 87086; 87181; 87205; 93970; 94002; 94003; 94150; 94664; 96360; 99291; J1815; J7030; J8499